=== PATIENT | female | born 1960 | race Caucasian/White ===

== ENCOUNTER 2017-12-13 08:15 | Emergency (ER) | payer MEDICAID ==
[~2017-12-13] VITALS: Ht 160 cm; Wt 99.8 kg
[2017-12-13 11:31] VITALS: BP 137/71
== END 2017-12-13 12:33 | disposition home or self-care (01) ==
LOC: ER 08:15
DX: N63.0 Unspecified lump in unspecified breast (principal); F17.210 Nicotine dependence, cigarettes, uncomplicated
CPT/HCPCS: 71250

== ENCOUNTER 2020-09-24 16:58 | Inpatient (IN) | payer MEDICAID ==
[~2020-09-24] VITALS: Ht 160 cm; Wt 86.5 kg
[2020-09-24 17:43] LABS: Basophils # (auto) 0.1 10 ^3/uL (0-0.2); Basophils % (auto) 0.7 % (0.0-2.0); Eosinophils # (auto) 0.2 10 ^3/uL (0-0.8); Eosinophils % (auto) 2.2 % (0.0-7.0); Hematocrit 45.7 % (36.0-46.0); Lymphocytes # (auto) 2.9 10 ^3/uL (0.4-5.4); Lymphocytes % (auto) 29.6 % (10.0-50.0); Mean Corpuscular Hemoglobin 32.2 pg (28.0-32.0); Mean Corpuscular Volume 92.2 fL (80.0-100.0); Monocytes # (auto) 0.8 10 ^3/uL (0-1.3); Neutrophils # (auto) 5.8 10 ^3/uL (1.6-8.6); Neutrophils % (auto) 59.5 % (37.0-80.0); Nucleated Red Blood Cells % 0.3 %; Platelet Count (auto) 214 10^3/uL (140-450); Red Blood Cells 4.95 10^6/uL (4.0-5.20); Red Cell Distribution Width 13.6 % (11.8-14.3); White Blood Cell 9.7 10^3/uL (4.4-10.8)
[2020-09-24 17:58] LABS: INR 0.97 (0.9-1.15); Partial Thromboplastin Time 26.6 sec (23.0-31.2)
[2020-09-24 17:59] LABS: Albumin 3.4 g/dL (3.4-5.0); Anion Gap 5 (5-15); BUN/Creatinine Ratio 28.8; Blood Urea Nitrogen 15 mg/dL (7-18); Calcium 8.6 mg/dL (8.5-10.1); Carbon Dioxide 27 mmol/L (21-32); Chloride 107 mmol/L (98-107); GFR African American 156 mL/min; GFR Non-African American 129 mL/min; Glucose 91 mg/dL (74-106); Potassium 4.1 mmol/L (3.5-5.1); Sodium 139 mmol/L (136-145)
[2020-09-24 18:03] LABS: Alanine Aminotransferase 62 U/L (13-56); Alkaline Phosphatase 73 U/L (45-117); Aspartate Aminotransferase 49 U/L (15-37); Bilirubin, Total 0.4 mg/dL (0.2-1.0); Total Protein 7.4 g/dL (6.4-8.2)
[2020-09-24] MEDS ORDERED: dilTIAZem 25 MG/5 ML VIAL IV ONE ×3 (18:11→18:45)
[2020-09-24] MEDS ORDERED: SODIUM CHLORIDE 0.9% 1,000 ML IV ONE (18:15)
[2020-09-24] MEDS ORDERED: METOPROLOL SUCCINATE XL 50 MG TAB PO ONE (19:45)
[2020-09-24] MEDS: ENOXAPARIN SOD 80 MG/0.8ML SYRINGE SC SCH (21:30)
[2020-09-24] MEDS ORDERED: NITROGLYCERIN 0.4 MG SL TAB SL PRN (21:45)
[2020-09-24] MEDS ORDERED: ACETAMINOPHEN 325 MG TAB PO PRN (21:45)
[2020-09-24] MEDS ORDERED: MORPHINE SULF INJ 2 MG/ML SYRINGE 1ML IV PRN (21:45)
[2020-09-24] MEDS ORDERED: TEMAZEPAM 15 MG CAP PO PRN (21:45)
[2020-09-24] MEDS ORDERED: ONDANSETRON HCL 4 MG/2 ML VIAL IV PRN (21:45)
[2020-09-24] MEDS ORDERED: FAMOTIDINE 20 MG TAB PO SCH (22:00)
[2020-09-24] MEDS: METOPROLOL TARTRATE 25 MG TAB PO SCH (22:45)
[2020-09-25] VITALS (8 sets, daily range): BP systolic 97–124; BP diastolic 58–73
[2020-09-25] MEDS ORDERED: CITA-73 PO (00:39)
[2020-09-25 06:34] LABS: Basophils # (auto) 0.1 10 ^3/uL (0-0.2); Basophils % (auto) 1.1 % (0.0-2.0); Eosinophils # (auto) 0.2 10 ^3/uL (0-0.8); Hematocrit 42.9 % (36.0-46.0); Hemoglobin 14.8 g/dL (12.2-16.2); Lymphocytes # (auto) 2.2 10 ^3/uL (0.4-5.4); Lymphocytes % (auto) 34.1 % (10.0-50.0); Mean Corpuscular Hemoglobin 31.9 pg (28.0-32.0); Mean Corpuscular Hgb Conc. 34.4 g/dL (32.0-36.0); Mean Corpuscular Volume 92.8 fL (80.0-100.0); Monocytes # (auto) 0.6 10 ^3/uL (0-1.3); Monocytes % (auto) 8.8 % (0.0-12.0); Neutrophils # (auto) 3.5 10 ^3/uL (1.6-8.6); Nucleated Red Blood Cells % 0.1 %; Platelet Count (auto) 180 10^3/uL (140-450); Red Blood Cells 4.62 10^6/uL (4.0-5.20); Red Cell Distribution Width 13.8 % (11.8-14.3); White Blood Cell 6.6 10^3/uL (4.4-10.8)
[2020-09-25 06:50] LABS: BUN/Creatinine Ratio 24.5; Calcium 8.4 mg/dL (8.5-10.1); Potassium 4.3 mmol/L (3.5-5.1)
[2020-09-25] MEDS: FAMOTIDINE 20 MG TAB PO SCH ×2 (09:44→21:27)
[2020-09-25] MEDS: ENOXAPARIN SOD 80 MG/0.8ML SYRINGE SC SCH (09:44)
[2020-09-25] MEDS: METOPROLOL TARTRATE 25 MG TAB PO SCH ×2 (09:45→21:26)
[2020-09-25] MEDS ORDERED: ASPirin 81 mg TAB PO SCH (10:00)
[2020-09-26 05:00] VITALS: BP 114/58
[2020-09-26 05:24] LABS: Basophils # (auto) 0.1 10 ^3/uL (0-0.2); Basophils % (auto) 0.8 % (0.0-2.0); Eosinophils # (auto) 0.2 10 ^3/uL (0-0.8); Eosinophils % (auto) 3.1 % (0.0-7.0); Hematocrit 43.3 % (36.0-46.0); Hemoglobin 15.3 g/dL (12.2-16.2); Lymphocytes # (auto) 2.1 10 ^3/uL (0.4-5.4); Lymphocytes % (auto) 32.6 % (10.0-50.0); Mean Corpuscular Hemoglobin 32.4 pg (28.0-32.0); Mean Corpuscular Hgb Conc. 35.3 g/dL (32.0-36.0); Monocytes # (auto) 0.5 10 ^3/uL (0-1.3); Monocytes % (auto) 8.1 % (0.0-12.0); Neutrophils # (auto) 3.6 10 ^3/uL (1.6-8.6); Neutrophils % (auto) 55.4 % (37.0-80.0); Nucleated Red Blood Cells % 0.1 %; Platelet Count (auto) 181 10^3/uL (140-450); Red Blood Cells 4.71 10^6/uL (4.0-5.20); Red Cell Distribution Width 13.7 % (11.8-14.3); White Blood Cell 6.5 10^3/uL (4.4-10.8)
[2020-09-26 05:43] LABS: BUN/Creatinine Ratio 27.5; Calcium 8.8 mg/dL (8.5-10.1); Potassium 4.3 mmol/L (3.5-5.1)
[2020-09-26 07:27] LABS: Urine Bacteria NONE SEEN /hpf (None Seen); Urine Blood Negative /uL (Negative); Urine WBC <1 /hpf (0 - 5)
[2020-09-26 08:00] VITALS: BP 129/89
[2020-09-26] MEDS ORDERED: APIX5TAB PO (09:46)
[2020-09-26] MEDS ORDERED: MET25T PO (09:46)
[2020-09-26] MEDS ORDERED: ASPirin 81 mg TAB PO SCH (10:00)
[2020-09-26] MEDS ORDERED: ENOXAPARIN SOD 40 MG/0.4 ML SYRINGE SC SCH (10:00)
[2020-09-26] MEDS ORDERED: CITALOPRAM HYDROBR 20 MG TAB PO SCH (10:00)
[2020-09-26] MEDS: FAMOTIDINE 20 MG TAB PO SCH (10:20)
[2020-09-26] MEDS: METOPROLOL TARTRATE 25 MG TAB PO SCH (10:21)
[2020-09-26 12:00] VITALS: BP 103/59
[2020-09-26 12:59] VITALS: BP 103/59
[2020-09-26] MEDS ORDERED: NICOTINE 14 MG/24HR TOPICAL PATCH TD SCH (13:00)
== END 2020-09-26 14:08 | disposition home or self-care (01) | DRG 201 ==
LOC: EDUNIT# 16:58 → ER 16:58 → EDBD 16:58 → TELE 21:42 → TELE-CENTR 23:08
PROVIDERS: ADMIT Nurse Practitioner; ATTEND Internal Medicine Pulmonary Disease
DX: I48.91 Unspecified atrial fibrillation (principal); E66.9 Obesity, unspecified; Z68.33 Body mass index [BMI] 33.0-33.9, adult; F17.210 Nicotine dependence, cigarettes, uncomplicated; F32.9 Major depressive disorder, single episode, unspecified; F41.9 Anxiety disorder, unspecified; Z82.49 Family history of ischemic heart disease and other diseases of the circulatory system; Z20.822 Contact with and (suspected) exposure to COVID-19
CPT/HCPCS: 36415; 71045; 80048; 80053; 81001; 83735; 83880; 84443; 84484; 85025; 85610; 85730; 87426; 93005; 93306; 96361; 96374; G0378

== ENCOUNTER 2020-10-20 09:10 | Emergency (ER) | payer MEDICAID ==
[~2020-10-20] VITALS: Ht 162.6 cm; Wt 83.9 kg
[~2020-10-20 09:10] MED LIST: APIX5TAB PO; CITA-73 PO; MET25T PO
[2020-10-20 10:04] LABS: Albumin 3.1 g/dL (3.4-5.0); Anion Gap 2 (5-15); Blood Urea Nitrogen 11 mg/dL (7-18); Calcium 8.3 mg/dL (8.5-10.1); Carbon Dioxide 29 mmol/L (21-32); Chloride 105 mmol/L (98-107); Glucose 92 mg/dL (74-106); Potassium 4.3 mmol/L (3.5-5.1); Sodium 136 mmol/L (136-145)
[2020-10-20 10:06] LABS: Basophils # (auto) 0.1 10 ^3/uL (0-0.2); Basophils % (auto) 0.7 % (0.0-2.0); Eosinophils # (auto) 0.1 10 ^3/uL (0-0.8); Eosinophils % (auto) 0.9 % (0.0-7.0); Hematocrit 39.2 % (36.0-46.0); Lymphocytes # (auto) 2.4 10 ^3/uL (0.4-5.4); Lymphocytes % (auto) 24.3 % (10.0-50.0); Mean Corpuscular Hemoglobin 32.7 pg (28.0-32.0); Mean Corpuscular Hgb Conc. 35.6 g/dL (32.0-36.0); Mean Corpuscular Volume 91.8 fL (80.0-100.0); Monocytes # (auto) 0.8 10 ^3/uL (0-1.3); Monocytes % (auto) 7.9 % (0.0-12.0); Neutrophils # (auto) 6.5 10 ^3/uL (1.6-8.6); Neutrophils % (auto) 66.2 % (37.0-80.0); Red Blood Cells 4.27 10^6/uL (4.0-5.20); Red Cell Distribution Width 13.4 % (11.8-14.3); White Blood Cell 9.9 10^3/uL (4.4-10.8)
[2020-10-20 10:12] LABS: Alanine Aminotransferase 178 U/L (13-56); Alkaline Phosphatase 72 U/L (45-117); Aspartate Aminotransferase 139 U/L (15-37); BUN/Creatinine Ratio 19.6; Bilirubin, Total 0.6 mg/dL (0.2-1.0); GFR African American 143 mL/min; GFR Non-African American 118 mL/min; Total Protein 6.9 g/dL (6.4-8.2)
[2020-10-20 12:00] VITALS: BP 98/65
== END 2020-10-20 12:41 | disposition home or self-care (01) ==
LOC: ER 09:10
DX: J18.9 Pneumonia, unspecified organism (principal); R79.0 Abnormal level of blood mineral; R79.82 Elevated C-reactive protein (CRP); I48.91 Unspecified atrial fibrillation; F17.210 Nicotine dependence, cigarettes, uncomplicated; Z79.899 Other long term (current) drug therapy
CPT/HCPCS: 36415; 71046; 80053; 82728; 84484; 85025; 85049; 86141; 87426; 93005

== ENCOUNTER 2020-12-29 13:22 | Emergency (ER) | payer MEDICAID ==
[~2020-12-29] VITALS: Ht 160 cm; Wt 83.9 kg
[2020-12-29 13:51] LABS: Basophils # (auto) 0.1 10 ^3/uL (0-0.2); Basophils % (auto) 0.8 % (0.0-2.0); Eosinophils # (auto) 0.2 10 ^3/uL (0-0.8); Eosinophils % (auto) 2.1 % (0.0-7.0); Hemoglobin 16.2 g/dL (12.2-16.2); Lymphocytes # (auto) 2.9 10 ^3/uL (0.4-5.4); Lymphocytes % (auto) 33.1 % (10.0-50.0); Mean Corpuscular Hemoglobin 31.6 pg (28.0-32.0); Mean Corpuscular Hgb Conc. 33.8 g/dL (32.0-36.0); Mean Corpuscular Volume 93.4 fL (80.0-100.0); Monocytes # (auto) 0.6 10 ^3/uL (0-1.3); Red Blood Cells 5.14 10^6/uL (4.0-5.20); Red Cell Distribution Width 14.3 % (11.8-14.3); White Blood Cell 8.9 10^3/uL (4.4-10.8)
[2020-12-29 14:04] LABS: Anion Gap 4 (5-15); BUN/Creatinine Ratio 23.4; Blood Urea Nitrogen 15 mg/dL (7-18); Calcium 8.6 mg/dL (8.5-10.1); Carbon Dioxide 27 mmol/L (21-32); Chloride 107 mmol/L (98-107); GFR African American 123 mL/min; GFR Non-African American 101 mL/min; Glucose 87 mg/dL (74-106); Potassium 4.7 mmol/L (3.5-5.1); Sodium 138 mmol/L (136-145)
[2020-12-29 14:09] LABS: Alanine Aminotransferase 75 U/L (13-56); Alkaline Phosphatase 67 U/L (45-117); Aspartate Aminotransferase 52 U/L (15-37); Bilirubin, Total 0.2 mg/dL (0.2-1.0); Total Protein 7.5 g/dL (6.4-8.2)
[2020-12-29 15:56] LABS: Urine Bacteria FEW /hpf (None Seen); Urine Blood Negative /uL (Negative); Urine WBC 1 /hpf (0 - 5)
[2020-12-29 16:38] VITALS: BP 112/71
== END 2020-12-29 16:41 | disposition home or self-care (01) ==
LOC: ER 13:24
DX: R07.89 Other chest pain (principal); F41.9 Anxiety disorder, unspecified; E86.0 Dehydration; I48.91 Unspecified atrial fibrillation; F32.9 Major depressive disorder, single episode, unspecified; F17.210 Nicotine dependence, cigarettes, uncomplicated; Z79.899 Other long term (current) drug therapy
CPT/HCPCS: 36415; 71045; 80053; 81001; 84484; 85025; 93005

== ENCOUNTER 2021-11-22 08:54 | Emergency (ER) | payer MEDICAID ==
[~2021-11-22] VITALS: Ht 160 cm; Wt 90.5 kg
[2021-11-22 10:08] LABS: Albumin 3.1 g/dL (3.4-5.0); Calcium 8.7 mg/dL (8.5-10.1); Potassium 4.5 mmol/L (3.5-5.1)
[2021-11-22 10:11] LABS: BUN/Creatinine Ratio 23.9; Bilirubin, Total 0.3 mg/dL (0.2-1.0)
[2021-11-22 10:24] LABS: Basophils # (auto) 0.1 10 ^3/uL (0-0.2); Basophils % (auto) 0.9 % (0.0-2.0); Eosinophils # (auto) 0.2 10 ^3/uL (0-0.8); Eosinophils % (auto) 2.1 % (0.0-7.0); Hematocrit 44.5 % (36.0-46.0); Hemoglobin 14.7 g/dL (12.2-16.2); Lymphocytes # (auto) 2.2 10 ^3/uL (0.4-5.4); Lymphocytes % (auto) 28.6 % (10.0-50.0); Mean Corpuscular Hemoglobin 31.4 pg (28.0-32.0); Mean Corpuscular Volume 95.3 fL (80.0-100.0); Monocytes # (auto) 0.5 10 ^3/uL (0-1.3); Monocytes % (auto) 7.2 % (0.0-12.0); Neutrophils # (auto) 4.7 10 ^3/uL (1.6-8.6); Neutrophils % (auto) 61.2 % (37.0-80.0); Red Blood Cells 4.67 10^6/uL (4.0-5.20); Red Cell Distribution Width 13.6 % (11.8-14.3); White Blood Cell 7.7 10^3/uL (4.4-10.8)
[2021-11-22 15:05] VITALS: BP 156/69
== END 2021-11-22 15:06 | disposition home or self-care (01) ==
LOC: ER 08:54
DX: R07.89 Other chest pain (principal); E46 Unspecified protein-calorie malnutrition; I48.91 Unspecified atrial fibrillation; F17.210 Nicotine dependence, cigarettes, uncomplicated; Z68.35 Body mass index [BMI] 35.0-35.9, adult; Z79.899 Other long term (current) drug therapy
CPT/HCPCS: 36415; 71045; 80053; 84484; 85025; 93005

== ENCOUNTER 2023-04-10 09:42 | Emergency (ER) | payer MEDICAID ==
[~2023-04-10] VITALS: Ht 160 cm; Wt 94.3 kg
[2023-04-10 10:44] VITALS: BP 122/69; PULSE 67; RESP 18; TEMP 97.9; O2SAT 95
[2023-04-10] MEDS ORDERED: ACETAMINOPHEN 500 MG TAB PO ONE (11:15)
[2023-04-10] MEDS ORDERED: KETOROLAC TROMETH 60MG/2ML VIAL IM ONE (11:15)
[2023-04-10] MEDS ORDERED: methylPREDNISolone SOD SUCC 125 MG/2 ML VL IM ONE (11:15)
[2023-04-10] MEDS ORDERED: GABA-1308 PO (11:48)
== END 2023-04-10 11:48 | disposition home or self-care (01) ==
LOC: ER 09:42
DX: M79.661 Pain in right lower leg (principal); M54.31 Sciatica, right side; I48.91 Unspecified atrial fibrillation; F17.210 Nicotine dependence, cigarettes, uncomplicated; Z79.899 Other long term (current) drug therapy
CPT/HCPCS: 96372; 99284; J1885; J2930

== ENCOUNTER 2023-09-13 03:21 | Emergency (ER) | payer MEDICAID ==
[~2023-09-13] VITALS: Ht 160 cm; Wt 91.4 kg
[~2023-09-13 03:21] MED LIST changes: +GABA-1308 PO
[2023-09-13] MEDS: HYDROcodone-ACET 7.5/325MG TAB PO ONE (07:29)
[2023-09-13] MEDS: methylPREDNISolone SOD SUCC 125 MG/2 ML VL IM ONE (07:30)
[2023-09-13 07:40] VITALS: BP 125/58; PULSE 55; RESP 18; TEMP 98; O2SAT 96
[2023-09-13] MEDS ORDERED: CYCL-837 PO (07:57)
[2023-09-13] MEDS ORDERED: MELO7.5T7 PO (07:57)
== END 2023-09-13 08:02 | disposition home or self-care (01) ==
LOC: ER 03:21
DX: M54.31 Sciatica, right side (principal); M79.604 Pain in right leg; F41.9 Anxiety disorder, unspecified; F32.9 Major depressive disorder, single episode, unspecified; I48.91 Unspecified atrial fibrillation; F17.210 Nicotine dependence, cigarettes, uncomplicated; Z79.899 Other long term (current) drug therapy
CPT/HCPCS: 72100; 96372; 99283; J2919

== ENCOUNTER 2023-11-27 09:27 | Inpatient (IN) | payer MEDICAID ==
[~2023-11-27] VITALS: Ht 160 cm; Wt 93.9 kg
[~2023-11-27 09:27] MED LIST changes: +COROSUS EACH EAR; +CYCL-837 PO; +MELO7.5T7 PO; +METO25TA5 PO
[2023-11-27 10:15] VITALS: PULSE 152; RESP 18; O2SAT 95
[2023-11-27] MEDS: ADENOSINE 6 MG/2 ML INJ IV ONE (10:15)
[2023-11-27] MEDS: dilTIAZem 25 MG/5 ML VIAL IV ONE (10:22)
[2023-11-27] MEDS: ONDANSETRON HCL 4 MG/2 ML VIAL IV ONE (10:23)
[2023-11-27] MEDS: MORPHINE SULFATE 4 MG/ML SYR/VIAL IV ONE (10:37)
[2023-11-27] MEDS: dilTIAZem 125mg/125ml BAG KIT 125 ML IV ONE (10:38)
[2023-11-27 10:41] LABS: Basophils # (auto) 0.1 10 ^3/uL (0-0.2); Basophils % (auto) 0.7 % (0.0-2.0); Eosinophils # (auto) 0.1 10 ^3/uL (0-0.8); Eosinophils % (auto) 1.7 % (0.0-7.0); Hematocrit 35.8 % (36.0-46.0); Hemoglobin 12.1 g/dL (12.2-16.2); Lymphocytes # (auto) 2.3 10 ^3/uL (0.4-5.4); Mean Corpuscular Hemoglobin 31.8 pg (28.0-32.0); Mean Corpuscular Hgb Conc. 33.9 g/dL (32.0-36.0); Mean Corpuscular Volume 93.8 fL (80.0-100.0); Monocytes # (auto) 0.6 10 ^3/uL (0-1.3); Monocytes % (auto) 7.3 % (0.0-12.0); Neutrophils # (auto) 5.1 10 ^3/uL (1.6-8.6); Neutrophils % (auto) 62.3 % (37.0-80.0); Nucleated Red Blood Cells % 0.1 %; Red Blood Cells 3.82 10^6/uL (4.0-5.20); Red Cell Distribution Width 14.8 % (11.8-14.3); White Blood Cell 8.2 10^3/uL (4.4-10.8)
[2023-11-27 11:09] LABS: Chloride 114 mmol/L (98-107); Potassium 3.5 mmol/L (3.5-5.1); Sodium 142 mmol/L (136-145)
[2023-11-27 11:16] LABS: Anion Gap 5 (5-15); Blood Urea Nitrogen 13 mg/dL (9-23); Calcium 7.3 mg/dL (8.7-10.4); Carbon Dioxide 23 mmol/L (20-30); Glucose 95 mg/dL (74-106)
[2023-11-27] MEDS: SODIUM CHLORIDE 0.9% 500 ML IV ONE (13:04)
[2023-11-27] MEDS: NOREPINEPHRINE 8 MG/250ML KIT 250 ML IV SCH (13:17)
[2023-11-27] MEDS ORDERED: MORPHINE SULFATE INJ 2 MG/ml SYRG IV PRN (14:30)
[2023-11-27] MEDS ORDERED: NITROGLYCERIN 0.4 MG SL TAB SL PRN (14:30)
[2023-11-27 15:20] LABS: LDL Cholesterol 73 mg/dL (< 100); Triglycerides 128 mg/dL (< 150)
[2023-11-27 15:22] LABS: Cholesterol 136 mg/dL (< 200); HDL Cholesterol 44 mg/dL (40-59)
[2023-11-27] MEDS: SODIUM CHLORIDE 0.9% 1,000 ML IV SCH (16:51)
[2023-11-27] MEDS: GABAPENTIN 100 MG CAP PO ONE (17:03)
[2023-11-27] MEDS: HYDROcodone-ACET 5/325MG TAB PO PRN (20:25)
[2023-11-27] MEDS: GABAPENTIN 100 MG CAP PO SCH (21:45)
[2023-11-28 04:30] LABS: Urine Bacteria None Seen /hpf (None Seen)
[2023-11-28 04:37] LABS: Urine Blood Negative /uL (Negative); Urine Clarity Clear (Clear); Urine Color Light-Yellow (Yellow); Urine Protein, UAD Negative (Negative); Urine Specific Gravity 1.022 (1.001-1.035); Urine Urobilinogen Normal (Negative); Urine WBC <1 /hpf (0 - 5); Urine pH 5.5 (5.0-9.0)
[2023-11-28 07:17] VITALS: PULSE 72; RESP 14; O2SAT 96
[2023-11-28 07:33] LABS: Basophils # (auto) 0.1 10 ^3/uL (0-0.2); Basophils % (auto) 0.9 % (0.0-2.0); Eosinophils # (auto) 0.2 10 ^3/uL (0-0.8); Eosinophils % (auto) 2.2 % (0.0-7.0); Hematocrit 41.9 % (36.0-46.0); Hemoglobin 14.1 g/dL (12.2-16.2); Lymphocytes # (auto) 2.4 10 ^3/uL (0.4-5.4); Lymphocytes % (auto) 27.8 % (10.0-50.0); Mean Corpuscular Hemoglobin 31.8 pg (28.0-32.0); Mean Corpuscular Hgb Conc. 33.6 g/dL (32.0-36.0); Mean Corpuscular Volume 94.5 fL (80.0-100.0); Monocytes # (auto) 0.8 10 ^3/uL (0-1.3); Monocytes % (auto) 8.7 % (0.0-12.0); Neutrophils # (auto) 5.3 10 ^3/uL (1.6-8.6); Neutrophils % (auto) 60.4 % (37.0-80.0); Red Blood Cells 4.43 10^6/uL (4.0-5.20); White Blood Cell 8.7 10^3/uL (4.4-10.8)
[2023-11-28 07:35] LABS: Alanine Aminotransferase 57 U/L (7-40); Albumin 3.7 g/dL (3.2-4.8); Alkaline Phosphatase 70 U/L (46-116); Anion Gap 2 (5-15); Aspartate Aminotransferase 53 U/L (13-40); BUN/Creatinine Ratio 24.6 (10.0-20.0); Blood Urea Nitrogen 14 mg/dL (9-23); Calcium 8.8 mg/dL (8.7-10.4); Carbon Dioxide 28 mmol/L (20-30); Chloride 111 mmol/L (98-107); Glucose 107 mg/dL (74-106); Potassium 4.8 mmol/L (3.5-5.1); Sodium 141 mmol/L (136-145)
[2023-11-28 07:36] LABS: Bilirubin, Total 0.6 mg/dL (0.2-1.0); Total Protein 6.4 g/dL (5.7-8.2)
[2023-11-28] MEDS: DIGOXIN (250MCG/ML) 2 ML AMPULE IV ONE (12:50)
[2023-11-28] MEDS: METOPROLOL TARTRATE 25 MG TAB PO ONE (16:31)
[2023-11-28] MEDS: NITROGLYCERIN 2% OINT 1GM PKG TD ONE (19:03)
[2023-11-28 19:38] VITALS: PULSE 126; RESP 18; O2SAT 92
[2023-11-28] MEDS: dilTIAZem 125mg/125ml BAG KIT 125 ML IV SCH (21:41)
[2023-11-28] MEDS: METOPROLOL TARTRATE 25 MG TAB PO SCH (22:00)
[2023-11-28] MEDS: APIXABAN 5 MG TAB PO SCH (22:59)
[2023-11-28] MEDS: AMIODARONE BOLUS KIT 100 ML IV ONE (23:02)
[2023-11-28] MEDS: AMIODARONE 450mg/250ml AE 250 ML IV SCH (23:50)
[2023-11-29] VITALS (51 sets, daily range): BP systolic 97–126; BP diastolic 48–84; PULSE 79–129; RESP 12–24; TEMP 98–98.3; O2SAT 89–98
[2023-11-29 04:42] LABS: Alanine Aminotransferase 64 U/L (7-40); Albumin 3.5 g/dL (3.2-4.8); Alkaline Phosphatase 67 U/L (46-116); Anion Gap 6 (5-15); Aspartate Aminotransferase 63 U/L (13-40); BUN/Creatinine Ratio 20.4 (10.0-20.0); Bilirubin, Total 0.4 mg/dL (0.2-1.0); Blood Urea Nitrogen 10 mg/dL (9-23); Calcium 8.7 mg/dL (8.7-10.4); Carbon Dioxide 28 mmol/L (20-30); Chloride 107 mmol/L (98-107); Glucose 109 mg/dL (74-106); Magnesium 1.8 mg/dL (1.6-2.6); Sodium 141 mmol/L (136-145); Total Protein 6.3 g/dL (5.7-8.2)
[2023-11-29] MEDS: AMIODARONE 450mg/250ml AE 250 ML IV SCH (05:17)
[2023-11-29] MEDS: NICOTINE 21MG/24 HR TOPICAL PATCH TD ONE (11:00)
[2023-11-29 11:11] LABS: INR 1.04 (0.9-1.15)
[2023-11-29] MEDS: NITROGLYCERIN 2% OINT 1GM PKG TD SCH (11:20)
[2023-11-29] MEDS: FUROSEMIDE 20 MG/2 ML VIAL IV ONE (11:22)
[2023-11-29] MEDS: LIDOCAINE 1% (LOCAL ANESTH.) PF 5ml SDV ID ONE (14:08)
[2023-11-29] MEDS: MAGNESIUM SULFATE 1GM/100ML 100 ML IV SCH (14:19)
[2023-11-29] MEDS: MAGNESIUM SULFATE 1GM/100ML 200 ML IV ONE (14:22)
[2023-11-29] MEDS: SODIUM CHLOR 0.9% PF (SALINE LOCK) 10ML VIAL/SYR IV SCH (21:11)
[2023-11-30] VITALS (23 sets, daily range): BP systolic 96–117; BP diastolic 57–77; PULSE 91–145; RESP 12–26; TEMP 98.2–99.4; O2SAT 91–97
[2023-11-30 03:52] LABS: Basophils # (auto) 0.1 10 ^3/uL (0-0.2); Basophils % (auto) 0.6 % (0.0-2.0); Eosinophils # (auto) 0.1 10 ^3/uL (0-0.8); Eosinophils % (auto) 1.4 % (0.0-7.0); Hemoglobin 14.1 g/dL (12.2-16.2); Mean Corpuscular Hemoglobin 31.8 pg (28.0-32.0); Mean Corpuscular Hgb Conc. 33.6 g/dL (32.0-36.0); Mean Corpuscular Volume 94.7 fL (80.0-100.0); Monocytes # (auto) 0.9 10 ^3/uL (0-1.3); Monocytes % (auto) 8.3 % (0.0-12.0); Neutrophils # (auto) 7.1 10 ^3/uL (1.6-8.6); Neutrophils % (auto) 69.7 % (37.0-80.0); Nucleated Red Blood Cells % 0.1 %; Red Blood Cells 4.43 10^6/uL (4.0-5.20); Red Cell Distribution Width 14.4 % (11.8-14.3); White Blood Cell 10.2 10^3/uL (4.4-10.8)
[2023-11-30 04:09] LABS: Alanine Aminotransferase 79 U/L (7-40); Albumin 3.5 g/dL (3.2-4.8); Alkaline Phosphatase 68 U/L (46-116); Anion Gap 3 (5-15); Aspartate Aminotransferase 80 U/L (13-40); BUN/Creatinine Ratio 19.2 (10.0-20.0); Bilirubin, Total 0.6 mg/dL (0.2-1.0); Blood Urea Nitrogen 10 mg/dL (9-23); Calcium 9.1 mg/dL (8.7-10.4); Carbon Dioxide 31 mmol/L (20-30); Chloride 106 mmol/L (98-107); Glucose 114 mg/dL (74-106); Potassium 4.2 mmol/L (3.5-5.1); Sodium 140 mmol/L (136-145)
[2023-11-30 04:10] LABS: Total Protein 6.5 g/dL (5.7-8.2)
[2023-11-30] MEDS: NICOTINE 21MG/24 HR TOPICAL PATCH TD SCH (09:45)
[2023-11-30] MEDS: AMIODARONE HCL 200 MG TAB PO ONE (13:08)
[2023-11-30] MEDS: AMIODARONE HCL 200 MG TAB PO SCH (20:43)
[2023-12-01] VITALS (7 sets, daily range): BP systolic 100–116; BP diastolic 59–78; PULSE 79–148; RESP 17–20; TEMP 97.7–98.8; O2SAT 92–96
[2023-12-01 10:06] LABS: Alanine Aminotransferase 72 U/L (7-40); Alkaline Phosphatase 76 U/L (46-116); Anion Gap 5 (5-15); Aspartate Aminotransferase 56 U/L (13-40); Blood Urea Nitrogen 11 mg/dL (9-23); Calcium 9.4 mg/dL (8.7-10.4); Carbon Dioxide 30 mmol/L (20-30); Chloride 105 mmol/L (98-107); Glucose 157 mg/dL (74-106); Potassium 4.1 mmol/L (3.5-5.1); Sodium 140 mmol/L (136-145)
[2023-12-01 10:07] LABS: Albumin 3.8 g/dL (3.2-4.8); Bilirubin, Total 0.5 mg/dL (0.2-1.0); Total Protein 6.7 g/dL (5.7-8.2)
[2023-12-01] MEDS ORDERED: AMIO200T33 PO (10:51)
[2023-12-01] MEDS ORDERED: HYDR-4902 PO (10:52)
[2023-12-01] MEDS: METOPROLOL TARTRATE 25 MG TAB PO ONE (11:24)
[2023-12-01] MEDS ORDERED: METOPROLOL TARTRATE 25 MG TAB PO SCH (22:00)
== END 2023-12-01 18:25 | disposition home or self-care (01) | DRG 201 ==
LOC: ER 09:27 → OVERFLOW 14:51 → ICU WEST 11-29 00:06 → TELE-WESTW 11-30 17:31
PROVIDERS: ADMIT Internal Medicine Geriatric Medicine; ATTEND Internal Medicine Geriatric Medicine
PROC: 02HV33Z Insertion of Infusion Device into Superior Vena Cava, Percutaneous Approach (ICD-10-PCS; principal; 2023-11-29)
PROC: B548ZZA Ultrasonography of Superior Vena Cava, Guidance (ICD-10-PCS; 2023-11-29)
DX: I47.10 Supraventricular tachycardia, unspecified (principal); I95.9 Hypotension, unspecified; I48.92 Unspecified atrial flutter; I50.40 Unspecified combined systolic (congestive) and diastolic (congestive) heart failure; I48.20 Chronic atrial fibrillation, unspecified; F17.210 Nicotine dependence, cigarettes, uncomplicated; F41.9 Anxiety disorder, unspecified; N18.9 Chronic kidney disease, unspecified; F32.A Depression, unspecified; E66.9 Obesity, unspecified; M54.41 Lumbago with sciatica, right side; Z79.01 Long term (current) use of anticoagulants; Z82.49 Family history of ischemic heart disease and other diseases of the circulatory system; Z83.3 Family history of diabetes mellitus; Z68.36 Body mass index [BMI] 36.0-36.9, adult
CPT/HCPCS: 36415; 36569; 71045; 80048; 80053; 80061; 81001; 83036; 83735; 83880; 84443; 84484; 85025; 85610; 85730; 87040; 87081; 87086; 93005; 93306; 97163; 99291; G0378; J0153; J2405

== ENCOUNTER 2023-12-24 08:13 | Inpatient (IN) | payer MEDICAID, SELFPAY ==
[~2023-12-24] VITALS: Ht 162.6 cm; Wt 98.0 kg
[~2023-12-24 08:13] MED LIST changes: +AMIO200T33 PO; -COROSUS EACH EAR; +HYDR-4902 PO; -MET25T PO
[2023-12-24 08:46] LABS: Urine Bacteria None Seen /hpf (None Seen)
[2023-12-24 08:51] LABS: Basophils # (auto) 0.1 10 ^3/uL (0-0.2); Basophils % (auto) 0.9 % (0.0-2.0); Eosinophils # (auto) 0.1 10 ^3/uL (0-0.8); Eosinophils % (auto) 0.7 % (0.0-7.0); Hemoglobin 13.8 g/dL (12.2-16.2); Lymphocytes # (auto) 2.1 10 ^3/uL (0.4-5.4); Lymphocytes % (auto) 24.8 % (10.0-50.0); Mean Corpuscular Hemoglobin 31.5 pg (28.0-32.0); Mean Corpuscular Hgb Conc. 33.7 g/dL (32.0-36.0); Mean Corpuscular Volume 93.6 fL (80.0-100.0); Monocytes # (auto) 0.7 10 ^3/uL (0-1.3); Monocytes % (auto) 8.7 % (0.0-12.0); Neutrophils # (auto) 5.4 10 ^3/uL (1.6-8.6); Neutrophils % (auto) 64.9 % (37.0-80.0); Platelet Count (auto) 162 10^3/uL (140-450); Red Blood Cells 4.38 10^6/uL (4.0-5.20); Red Cell Distribution Width 14.7 % (11.8-14.3); White Blood Cell 8.4 10^3/uL (4.4-10.8)
[2023-12-24 08:52] LABS: Urine Blood Negative /uL (Negative); Urine Clarity Clear (Clear); Urine Color Yellow (Yellow); Urine Protein, UAD Negative (Negative); Urine Specific Gravity 1.017 (1.001-1.035); Urine Urobilinogen Normal (Negative); Urine WBC 1 /hpf (0 - 5); Urine pH 5.5 (5.0-9.0)
[2023-12-24 08:55] VITALS: PULSE 48; RESP 15; O2SAT 95
[2023-12-24 09:03] LABS: Alanine Aminotransferase 220 U/L (7-40); Albumin 3.8 g/dL (3.2-4.8); Alkaline Phosphatase 82 U/L (46-116); Anion Gap 1 (5-15); Aspartate Aminotransferase 116 U/L (13-40); BUN/Creatinine Ratio 18.2 (10.0-20.0); Bilirubin, Total 0.7 mg/dL (0.2-1.0); Blood Urea Nitrogen 12 mg/dL (9-23); Calcium 9.3 mg/dL (8.7-10.4); Carbon Dioxide 29 mmol/L (20-30); Chloride 107 mmol/L (98-107); Glucose 90 mg/dL (74-106); Potassium 4.4 mmol/L (3.5-5.1); Sodium 137 mmol/L (136-145); Total Protein 6.9 g/dL (5.7-8.2)
[2023-12-24] MEDS: methylPREDNISolone SOD SUCC 125 MG/2 ML VL IV ONE (09:18)
[2023-12-24] MEDS: ALBUTEROL SULF 2.5 MG/0.5ML(0.5%) NEB SOLN NEB ONE (09:27)
[2023-12-24] MEDS: IPRATROPIUM BROM 0.5 MG/2.5ML INH SOL NEB ONE (09:27)
[2023-12-24] MEDS: AMIODARONE BOLUS KIT 100 ML IV ONE (10:22)
[2023-12-24] MEDS: AMIODARONE 450mg/250ml AE 250 ML IV SCH ×2 (10:28→16:43)
[2023-12-24] MEDS ORDERED: NITROGLYCERIN 0.4 MG SL TAB SL PRN (12:45)
[2023-12-24 13:24] LABS: INR 1.12 (0.9-1.15); Prothrombin Time 11.8 sec (9.3-11.8)
[2023-12-24] MEDS: GABAPENTIN 100 MG CAP PO SCH (14:09)
[2023-12-24] MEDS: LORazepam 2MG/ML-1ML VIAL IV ONE (14:54)
[2023-12-24 17:44] VITALS: BP 113/66; PULSE 100; RESP 18; TEMP 97.4; O2SAT 95
[2023-12-24 20:00] VITALS: PULSE 52; PULSE 69; RESP 19; O2SAT 95
[2023-12-24 21:00] VITALS: BP 103/54; PULSE 52; RESP 19; TEMP 97.8; O2SAT 95
[2023-12-24] MEDS: APIXABAN 5 MG TAB PO SCH (21:27)
[2023-12-25] VITALS (7 sets, daily range): BP systolic 99–140; BP diastolic 52–74; PULSE 53–107; RESP 17–18; TEMP 97.8–98.7; O2SAT 91–96
[2023-12-25 06:03] LABS: Basophils # (auto) 0 10 ^3/uL (0-0.2); Eosinophils # (auto) 0 10 ^3/uL (0-0.8); Hematocrit 41.6 % (36.0-46.0); Hemoglobin 14.1 g/dL (12.2-16.2); Lymphocytes # (auto) 1.5 10 ^3/uL (0.4-5.4); Lymphocytes % (auto) 9.1 % (10.0-50.0); Mean Corpuscular Hemoglobin 32.1 pg (28.0-32.0); Mean Corpuscular Hgb Conc. 33.8 g/dL (32.0-36.0); Monocytes # (auto) 1.1 10 ^3/uL (0-1.3); Monocytes % (auto) 6.5 % (0.0-12.0); Neutrophils # (auto) 13.8 10 ^3/uL (1.6-8.6); Neutrophils % (auto) 84.4 % (37.0-80.0); Platelet Count (auto) 152 10^3/uL (140-450); Red Blood Cells 4.39 10^6/uL (4.0-5.20); White Blood Cell 16.4 10^3/uL (4.4-10.8)
[2023-12-25 06:29] LABS: Alanine Aminotransferase 189 U/L (7-40); Albumin 3.8 g/dL (3.2-4.8); Alkaline Phosphatase 83 U/L (46-116); Anion Gap 3 (5-15); Aspartate Aminotransferase 77 U/L (13-40); BUN/Creatinine Ratio 21.2 (10.0-20.0); Blood Urea Nitrogen 14 mg/dL (9-23); Calcium 9.4 mg/dL (8.7-10.4); Carbon Dioxide 30 mmol/L (20-30); Chloride 104 mmol/L (98-107); Glucose 114 mg/dL (74-106); Potassium 4.5 mmol/L (3.5-5.1); Sodium 137 mmol/L (136-145)
[2023-12-25 06:30] LABS: Bilirubin, Total 0.9 mg/dL (0.2-1.0); Total Protein 6.8 g/dL (5.7-8.2)
[2023-12-25] MEDS: NICOTINE 21MG/24 HR TOPICAL PATCH TD SCH (08:43)
[2023-12-25] MEDS: CITALOPRAM HYDROBR 20 MG TAB PO SCH (08:43)
[2023-12-25] MEDS: IOHEXOL 350 MG/ML 100ML IJ ONE (09:23)
[2023-12-25] MEDS: NITROGLYCERIN 2% OINT 1GM PKG TD SCH (12:27)
[2023-12-25] MEDS: MORPHINE SULFATE INJ 2 MG/ml SYRG IV PRN (20:03)
[2023-12-26] VITALS (9 sets, daily range): BP systolic 117–134; BP diastolic 52–85; PULSE 59–119; RESP 17–20; TEMP 97.7–98.3; O2SAT 93–98
[2023-12-26] MEDS: LORazepam 0.5 MG TAB PO PRN (20:28)
[2023-12-27] VITALS (8 sets, daily range): BP systolic 112–128; BP diastolic 53–87; PULSE 50–119; RESP 17–19; TEMP 98.1–98.4; O2SAT 93–97
[2023-12-27 14:51] LABS: Basophils # (auto) 0 10 ^3/uL (0-0.2); Basophils % (auto) 0.6 % (0.0-2.0); Eosinophils # (auto) 0.1 10 ^3/uL (0-0.8); Eosinophils % (auto) 1.5 % (0.0-7.0); Hematocrit 42.1 % (36.0-46.0); Hemoglobin 14.4 g/dL (12.2-16.2); Lymphocytes # (auto) 1.4 10 ^3/uL (0.4-5.4); Lymphocytes % (auto) 17.2 % (10.0-50.0); Mean Corpuscular Hemoglobin 32.2 pg (28.0-32.0); Mean Corpuscular Hgb Conc. 34.3 g/dL (32.0-36.0); Mean Corpuscular Volume 93.9 fL (80.0-100.0); Monocytes # (auto) 0.8 10 ^3/uL (0-1.3); Monocytes % (auto) 10.1 % (0.0-12.0); Neutrophils % (auto) 70.6 % (37.0-80.0); Platelet Count (auto) 163 10^3/uL (140-450); Red Blood Cells 4.48 10^6/uL (4.0-5.20); Red Cell Distribution Width 14.6 % (11.8-14.3); White Blood Cell 8.4 10^3/uL (4.4-10.8)
[2023-12-27 15:18] LABS: Chloride 104 mmol/L (98-107); Potassium 4.2 mmol/L (3.5-5.1); Sodium 140 mmol/L (136-145)
[2023-12-27 15:19] LABS: Anion Gap 8 (5-15); Carbon Dioxide 28 mmol/L (20-30)
[2023-12-27 15:24] LABS: BUN/Creatinine Ratio 16.7 (10.0-20.0); Blood Urea Nitrogen 12 mg/dL (9-23); Glucose 111 mg/dL (74-106)
[2023-12-27] MEDS: ONDANSETRON HCL 4 MG/2 ML VIAL IV PRN (16:10)
[2023-12-28] VITALS (7 sets, daily range): BP systolic 100–125; BP diastolic 60–89; PULSE 58–118; RESP 18–20; TEMP 97.3–98.4; O2SAT 92–98
[2023-12-28] MEDS: DOCUSATE SOD 100 MG CAP PO PRN (09:36)
[2023-12-28] MEDS: AMIODARONE HCL 200 MG TAB PO SCH (13:26)
[2023-12-28] MEDS: METOPROLOL SUCCINATE XL 50 MG TAB PO SCH (13:29)
[2023-12-29] VITALS (7 sets, daily range): BP systolic 94–109; BP diastolic 44–60; PULSE 53–100; RESP 16–20; TEMP 97.8–98.5; O2SAT 92–95
== END 2023-12-29 16:30 | disposition home or self-care (01) | DRG 201 ==
LOC: ER 08:13 → TELE 13:00 → TELE-WESTW 17:27
PROVIDERS: ADMIT Nurse Practitioner Family; ATTEND Internal Medicine
DX: I48.20 Chronic atrial fibrillation, unspecified (principal); I11.0 Hypertensive heart disease with heart failure; I50.32 Chronic diastolic (congestive) heart failure; E66.9 Obesity, unspecified; Z79.01 Long term (current) use of anticoagulants; F17.210 Nicotine dependence, cigarettes, uncomplicated; F32.A Depression, unspecified; R74.01 Elevation of levels of liver transaminase levels; F41.9 Anxiety disorder, unspecified; Z68.37 Body mass index [BMI] 37.0-37.9, adult; Z82.49 Family history of ischemic heart disease and other diseases of the circulatory system; Z83.3 Family history of diabetes mellitus; Z79.899 Other long term (current) drug therapy
CPT/HCPCS: 36415; 71045; 71275; 80048; 80053; 81001; 84484; 85025; 85379; 85610; 93005; 94640; 96365; 96375; 99291; G0378; J2405

== ENCOUNTER 2024-04-15 12:08 | Inpatient (IN) | payer MEDICAID, SELFPAY ==
[~2024-04-15] VITALS: Ht 162.6 cm; Wt 89.8 kg
--- NOTE | 2024-04-15 12:24 | ECG ---
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
[2024-04-15] MEDS: ASPirin 325 MG TAB PO ONE (12:34)
[2024-04-15] MEDS: LABETALOL HCL 20 MG/4 ML VL IV ONE ×2 (12:40→13:15)
[2024-04-15 13:00] VITALS: PULSE 147; RESP 16; O2SAT 92
--- NOTE | 2024-04-15 13:13 | ED.PDOC ---
HPI Comments 63y F who presents to the ED for chief complaint of palpitations. Pt states she has been having palpitations since earlier this AM. Pt has noted history of AFIB ans has been having symptoms despite taking her medications. Pt states she is scheduled to have pacemaker placement in April 2024 with . Pt otherwise denies chest pain, shortness of breath, fever, headache or dizziness. Pt otherwise denies any other symptoms at this time. Pt in the ED, has noted heart rate of 145 with all other vitals in normal range. Pt otherwise denies any other symptoms at this time. Chief Complaint: Palpitations Time Seen by MD: 13:09 Primary Care Provider: DANIELLE Reviewed Notes: Medications, Allergies Allergies: Coded Allergies: NO KNOWN ALLERGIES (Unverified , 03/26/13) Home Meds Active Scripts Hydrocodone-Acetaminophen (Hydrocodone Bitartrate/AC 5-325 mg) 1 Tab Tab, 1 TAB PO Q6HP PRN, #20 TAB Prov:FRANSISCA BROWNE MD 12/01/23 Amiodarone Hcl (Amiodarone Hcl) 200 Mg Tab, 200 MG PO BID for 30 Days, #60 TAB Prov:FRANSISCA BROWNE MD 12/01/23 Meloxicam (Meloxicam) 7.5 Mg Tab, 1 TAB PO DAILYP PRN for 30 Days, #30 TAB 0 Refills Prov:MARIZOL FREEMAN NP 09/13/23 Cyclobenzaprine Hcl (Cyclobenzaprine Hcl) 5 Mg Tab, 1 TAB PO QHSP PRN for 30 Days, #30 TAB 0 Refills Prov:MARIZOL FREEMAN NP 09/13/23 Apixaban Base (ELIQUIS) 5 Mg Tab, 5 MG PO BID for 90 Days, #180 TAB Prov:SULMA DIGGS MD 09/26/20 Reported Medications Metoprolol Tartrate (Metoprolol Tartrate) 25 Mg Tab, 1 TAB PO DAILY for 90 Days, #90 11/30/23 Gabapentin (Gabapentin) 100 Mg Cap, 1 CAP PO TID for 90 Days, #180 11/30/23 Citalopram Hydrobromide (Citalopram Hydrobromide) 40 Mg Tab, 40 MG PO DAILY for 30 Days, MG 09/25/20 Information Source: Patient, Relative Mode of Arrival: Ambulatory Past Medical History PAST MEDICAL HISTORY: AFIB, Anxiety, Depression Surgical History: Denies all surgeries 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: No Pertinent 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 Family History Family History: Reviewed,noncontributory to illness, Family hx of HTN Social History Smoker: Cigarettes, Less Than 1 Pack/Day Alcohol: Rarely Drugs: Denies Drug Use Lives In: Home Constitutional: denies: chills, diaphoresis, fatigue, fever, malaise, sweats, weakness, others EENTM: denies: blurred vision, double vision, ear bleeding, ear discharge, ear drainage, ear pain, ear ringing, eye pain, eye redness, hearing loss, mouth pain, mouth swelling, nasal discharge, nose bleeding, nose congestion, nose pain, photophobia, tearing, throat pain, throat swelling, voice changes, others Respiratory: denies: cough, hemoptysis, orthopnea, SOB at rest, shortness of breath, SOB with excertion, stridor, wheezing, others Cardiovascular: reports: chest pain, irregular heart beat, palpitations; denies: dizzy spells, diaphoresis, Dyspnea on exertion, edema, left arm pain, lightheadedness, PND, syncope, others Gastrointestinal: denies: abdomen distended, abdominal pain, blood streaked bowels, constipated, diarrhea, dysphagia, difficulty swallowing, hematemesis, melena, nausea, poor appetite, poor fluid intake, rectal bleeding, rectal pain, vomiting, others Genitourinary: denies: abnormal vagina bleeding, burning, dyspareunia, dysuria, flank pain, frequency, hematuria, incontinence, pain, , vagina discharge, urgency, others Neurological: denies: dizziness, fainting, headache, left sided numbness, left sided weakness, numbness, paresthesia, pre-existing deficit, right sided numbness, right sided weakness, seizure, speech problems, tingling, tremors, weakness, others Musculoskeletal: denies: back pain, gout, joint pain, joint swelling, muscle pain, muscle stiffness, neck pain, others Integumetry: denies: bruises, change in color, change in hair/nails, dryness, laceration, lesions, lumps, rash, wounds, others Allergic/Immunocompromised: denies: Difficulty Healing, Frequent Infections, Hives, Itching, others Hematologic/Lymphatic: denies: anemia, blood clots, easy bleeding, easy bruising, swollen glands, others Endocrine: denies: excessive hunger, excessive sweating, excessive thirst, excessive urination, flushing, intolerance to cold, intolerance to heat, unexplained weight gain, unexplained weight loss, others Psychiatric: denies: anxiety, bipolar disorder, depression, hopeless, panic disorder, schizophrenia, sleepless, suicidal, others All Other Systems: Reviewed and Negative Physical Exam General Appearance: No Apparent Distress, Normal HEENT: Normal ENT Inspection, Pharynx Normal, TMs Normal Neck: Full Range of Motion, Non-Tender, Normal, Normal Inspection Respiratory: Lungs Clear Cardiovascular: Tachycardia Breast Exam: Deferred Gastrointestinal: No Organomegaly, Non Tender, No Pulsatile Mass, Normal Bowel Sounds, Soft Genitalia: Deferred Pelvic: Deferred Rectal: Deferred Extremities: No calf tenderness, Normal capillary refill, Normal inspection, Normal range of motion, Non-tender, No pedal edema Musculoskeletal : Apperance: Normal Neurologic: Alert, dental surgeon II-XII nml as Tested, No Motor Deficits, Normal Affect, Normal Mood, No Sensory Deficits Cerebellar Function: Normal Reflexes: Normal Skin: Dry, Normal Color, Warm Lymphatic: No Adenopathy EKG EKG : Pulse Rate (adult): 145 [place]: Normal Cardiac Rhythm: Aflutter Block: None Hypertrophy: None ST: Normal Comments repeat ekg st 150, rbbb, no dynamic changes after 1st dose labetolol. after second dose, pt remained the same, Dr Collazo came by and cardioverted pt and pt is now nsr 71. no st changes, no ischemia on 12 lead ekg Was a procedure done? Was a procedure done?: Yes Sedation Sedation?: No Informed consent obtained: Yes Sedation start time: 12:00 Sedation end time: 01:50 Sedation total time: 50 mins Sedation provider statement: per Dr Nick Collazo Cardioversion Vagal maneuver: Were attempted Attempts: x1 Resulted Rhythm: NSR Direct Supervision: Yes Informed consent obtained: Yes Risks/benefits/alt described: Yes CP Differential Dx Differential Diagnosis: A-fib, A-Flutter, Angina, Anxiety / Panic Attack, Atrial Dysrhythmia, AV Block 1st Degree, Electrolyte Disorder, Hyperthyroidism, Hyperventilation, Hypoxia, MAT, NV, Pulmonary Embolus, PVC's, Sinus Tachycardia, Torsades De Pointes, Ventricular Dysrhythmia, V-Fib, V-Tach, WPW X-Ray, Labs, Meds, VS Vital Signs Date Time Temp Pulse Resp B/P (MAP) Pulse Ox O2 Delivery O2 Flow Rate FiO2 04/15/24 13:45 71 04/15/24 13:44 67 04/15/24 13:17 150 04/15/24 13:13 147 100/61 04/15/24 12:41 147 04/15/24 12:41 149 13 122/61 (81) 96 04/15/24 12:40 146 122/61 04/15/24 12:24 98.1 141 18 107/73 (84) 96 04/15/24 12:13 145 Lab Test 04/15/24 13:34 04/15/24 12:25 Range/Units Troponin I High Sensitivity Pending Pending White Blood Count 10.1 4.4-10.8 10^3/uL Red Blood Count 5.58 H 4.0-5.20 10^6/uL Hemoglobin 17.7 H 12.2-16.2 g/dL Hematocrit 52.4 H 36.0-46.0 % Mean Corpuscular Volume 93.8 80.0-100.0 fL Mean Corpuscular Hemoglobin 31.7 28.0-32.0 pg Mean Corpuscular Hemoglobin Concent 33.8 32.0-36.0 g/dL Red Cell Distribution Width 15.0 H 11.8-14.3 % Platelet Count 224 140-450 10^3/uL Mean Platelet Volume 8.6 6.9-10.8 fL Neutrophils (%) (Auto) 57.3 37.0-80.0 % Lymphocytes (%) (Auto) 32.3 10.0-50.0 % Monocytes (%) (Auto) 6.5 0.0-12.0 % Eosinophils (%) (Auto) 2.6 0.0-7.0 % Basophils (%) (Auto) 1.3 0.0-2.0 % Neutrophils # (Auto) 5.8 1.6-8.6 10 ^3/uL Lymphocytes # (Auto) 3.3 0.4-5.4 10 ^3/uL Monocytes # (Auto) 0.7 0-1.3 10 ^3/uL Eosinophils # (Auto) 0.3 0-0.8 10 ^3/uL Basophils # (Auto) 0.1 0-0.2 10 ^3/uL Nucleated Red Blood Cells 0.0 % Sodium Level Pending Potassium Level Pending Chloride Level Pending Carbon Dioxide Level Pending Anion Gap Pending Blood Urea Nitrogen Pending Creatinine Pending Glomerular Filtration Rate Calc Pending BUN/Creatinine Ratio Pending Serum Glucose Pending Calcium Level Pending Magnesium Level Pending Total Bilirubin Pending Aspartate Amino Transferase (AST) Pending Alanine Aminotransferase (ALT) Pending Alkaline Phosphatase Pending Total Protein Pending Albumin Pending Current Medications Medications (Trade) Dose Ordered Sig/Zaheer Route Start Time Stop Time Status Last Admin Labetalol HCl (Labetalol HCl) 10 mg ONCE ONCE IV 04/15/24 12:30 04/15/24 12:31 DC 04/15/24 12:40 Aspirin 325 mg ONCE ONCE PO 04/15/24 12:30 04/15/24 12:31 DC 04/15/24 12:34 Midazolam HCl (Versed Injection) 2 mg ONCE ONCE IV 04/15/24 13:30 04/15/24 13:31 DC 04/15/24 13:59 Heparin Sodium (Porcine) 5,000 units ONCE ONCE IV 04/15/24 13:30 04/15/24 13:31 DC 04/15/24 13:56 Time of 1ST Reevaluation: 13:40 Reevaluation 1ST: Unchanged (surveillance system monitor shows afib-flutter) Time of 2ND Reevaluation: 14:00 Reevaluation 2ND: Improved (surveillance system monitor shows nsr) Patient Education/Counseling: Diagnosis, Treatment, Prognosis, Need For Follow Up Family Education/Counseling: Diagnosis, Treatment, No Family Present Additional Information - I reviewed the following notes from patient's past medical encounters: - The following tests were ordered, and results were reviewed by me: (Labs, X- Ray, EKG): EKG x 3, troponin x3, chest x-ray, magnesium, CBC, CMP - Additional information was gathered from interviewing the following independent Historian: (Family, Other Providers, EMT): none - I reviewed and agreed with the following test results read by other provider: (X-ray, CT, US): radiologist - I discussed treatments and results with medical personnel and: (consultants, family): none Departure 1 Departure Time of Disposition: 14:09 Impression: Primary Impression: Tachyarrhythmia Additional Impressions: Episodic atrial flutter Unstable angina Disposition: ADMITTED INPATIENT Admit to: Tele Condition: Serious Discharged With: Self Critical Care Note Critical Care Time?: Yes (55 min-critical care time only) Critical care comment: due to concerns for patient's condition worsening, the care required my highest attention and readiness to intervene. i reviewed the medical records, communicated with medical personnel, consultants, ordered the proper tests, treatments, reassessed the response and results. formulated a plan of care . total time does not include any procedures Stability Stability form required: No Heart Score Heart Score: Heart Score Response (Comments) Value History Highly Suspicious 2 EKG Repolarization Disturb 1 Age 45-64 1 Risk Factors 1 or 2 risk factors 1 Troponin Normal limit 0 Total 5 I personally scribed for LORI DURAND MD ([email or web address]) on 04/15/24 at 13:13. Electronically submitted by Mary Jo Luque ([email or web address]). LORI DURAND MD Apr 15, 2024 13:13
[2024-04-15 13:17] LABS: Basophils # (auto) 0.1 10 ^3/uL (0-0.2); Basophils % (auto) 1.3 % (0.0-2.0); Eosinophils # (auto) 0.3 10 ^3/uL (0-0.8); Eosinophils % (auto) 2.6 % (0.0-7.0); Hematocrit 52.4 % (36.0-46.0); Hemoglobin 17.7 g/dL (12.2-16.2); Lymphocytes # (auto) 3.3 10 ^3/uL (0.4-5.4); Lymphocytes % (auto) 32.3 % (10.0-50.0); Mean Corpuscular Hemoglobin 31.7 pg (28.0-32.0); Mean Corpuscular Hgb Conc. 33.8 g/dL (32.0-36.0); Mean Corpuscular Volume 93.8 fL (80.0-100.0); Monocytes # (auto) 0.7 10 ^3/uL (0-1.3); Monocytes % (auto) 6.5 % (0.0-12.0); Neutrophils # (auto) 5.8 10 ^3/uL (1.6-8.6); Neutrophils % (auto) 57.3 % (37.0-80.0); Platelet Count (auto) 224 10^3/uL (140-450); Red Blood Cells 5.58 10^6/uL (4.0-5.20); White Blood Cell 10.1 10^3/uL (4.4-10.8)
--- NOTE | 2024-04-15 13:28 | DVH ---
XY CHEST PORTABLE, HISTORY: tachycardia COMPARISON: XY CHEST PORTABLE on DOS: 12/24/23, XY CHEST PORTABLE on DOS: 11/29/23, XY CHEST PORTABLE on DOS: 11/27/23 XY CHEST PORTABLE on DOS: 12/24/23, XY CHEST PORTABLE on DOS: 11/29/23, XY CHEST PORTABLE on DOS: 11/27/23 TECHNICAL DATA: 1 view of the chest was obtained. FINDINGS: Lines and tubes: None Cardiomediastinal silhouette: normal Pulmonary vasculature: normal Lung expansion: normal Lung airspace: normal Lung interstitium: normal Pleura: normal Pneumothorax: no Bones: Unremarkable Other: no IMPRESSION: No acute intrathoracic abnormality.
[2024-04-15 13:45] LABS: Alkaline Phosphatase 79 U/L (46-116); Anion Gap 6 (5-15); Calcium 9.6 mg/dL (8.7-10.4); Carbon Dioxide 24 mmol/L (20-31); Magnesium 2.1 mg/dL (1.6-2.6); Sodium 138 mmol/L (136-145)
[2024-04-15] MEDS: MIDAZOLAM HCL 2MG/2ML 2ml VIAL (1mg/ml) IV ONE ×2 (13:45→13:59)
[2024-04-15 13:46] LABS: Total Protein 7.3 g/dL (5.7-8.2)
--- NOTE | 2024-04-15 13:46 | ECG ---
[facility] Test Date: 2024-04-15 Test Time: 13:45:24 Pat Name: ALESSIA WHITMORE Department: er Room: [address] [place] [address] Gender: F Debt Counselor: gp : 1960 Requested By: LORI DURAND Order Number: [id number] Reading MD: Rebel Levy Measurements Intervals [place] Rate: 71 P: 39 [place]: 146 QRS: 48 QRSD: 91 T: 51 QT: 406 QTc: 442 Interpretive Statements Sinus rhythm RSR' in V1 or V2, right VCD or RVH Baseline wander in lead(s) V5 Electronically Signed On 04-17-2024 13:07:16 PST by Rebel Levy Please click the below link to view image of tracing.
[2024-04-15] MEDS: HEPARIN SODIUM (PORCINE) 5000 UNITS/ML 1ML VIAL IV ONE (13:56)
[2024-04-15] MEDS: MIDAZOLAM HCL 2MG/2ML 2ml VIAL (1mg/ml) ONE (14:03)
[2024-04-15 14:15] LABS: BUN/Creatinine Ratio 10.8 (10.0-20.0)
[2024-04-15 14:16] LABS: Alanine Aminotransferase 57 U/L (7-40); Aspartate Aminotransferase 59 U/L (13-40); Bilirubin, Total 0.2 mg/dL (0.2-1.0); Blood Urea Nitrogen 14 mg/dL (9-23); Chloride 108 mmol/L (98-107); Glucose 149 mg/dL (74-106); Potassium 4.8 mmol/L (3.5-5.1)
--- NOTE | 2024-04-15 16:11 | ECG ---
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
[2024-04-15] MEDS ORDERED: MORPHINE SULFATE INJ 2 MG/ml SYRG IV PRN (19:30)
[2024-04-15] MEDS ORDERED: NITROGLYCERIN 0.4 MG SL TAB SL PRN (19:30)
[2024-04-15] MEDS ORDERED: ONDANSETRON HCL 4 MG/2 ML VIAL IV PRN (19:30)
[2024-04-15] MEDS ORDERED: ACETAMINOPHEN 325 MG TAB PO PRN (19:30)
[2024-04-15 20:00] VITALS: PULSE 65; RESP 17; O2SAT 96
--- NOTE | 2024-04-15 22:25 | DVHHP2 ---
History of Present Illness Reason for Visit: Palpitations History of Present Illness 63-year-old female presents for evaluation of palpitations. Patient presents with a one day history of palpitations associated shortness for breath. On arrival patient was noted to be in atrial flutter. Patient was cardioverted in the emergency department. Currently patient's heart rates in the 70s normal sinus. Denies any chest pain. Other acute complaints reported. Past Medical History Depression, anxiety in atrial fibrillation Past Surgical History Denies Family History Noncontributory Smoke: No ALCOHOL: none Drugs: None Lives: with Family Review of Systems Review of Systems Review of systems are currently negative otherwise addressed HPI. Allergies: Coded Allergies: NO KNOWN ALLERGIES (Unverified , 03/26/13) Medications Current Medications Medications Dose Ordered Sig/Zaheer Route Start Time Stop Time Status Last Admin Dose Admin Metoprolol Succinate 25 mg DAILY PO 04/16/24 10:00 Amiodarone HCl 200 mg Q12HR PO 04/15/24 22:00 Gabapentin 100 mg TID PO 04/15/24 22:00 Apixaban 5 mg BID PO 04/15/24 22:00 Temazepam 15 mg QHSP PRN PO 04/15/24 19:30 Ondansetron HCl 4 mg Q4HP PRN IV 04/15/24 19:30 Acetaminophen 650 mg Q6HP PRN PO 04/15/24 19:30 Nitroglycerin 0.4 mg Q5MINP PRN SL 04/15/24 19:30 Morphine Sulfate 2 mg Q30M PRN IV 04/15/24 19:30 Exam Vital Signs Vital Signs Date Time Temp Pulse Resp B/P (MAP) Pulse Ox O2 Delivery O2 Flow Rate FiO2 04/15/24 18:00 62 12 92/46 (61) 96 04/15/24 13:00 Room Air* 0 21 04/15/24 12:24 98.1 Exam Gen: [age] old female in mild distress. Skin: Warm, dry, normal color and texture, no rash. HEENT: Normocephalic atraumatic, mucous membranes moist and pink. Neck: Cervical and supraclavicular nodes normal without enlargement, trachea is midline, thyroid gland is normal without masses. Pulmonary: Clear to auscultation and percussion bilaterally. Cardiac: Regular rate and rhythm. No murmur Abdomen: Soft, nontender, nondistended, bowel sounds present all 4 quadrants, no guarding, no rigidity, no organomegaly. Extremities: No cyanosis, clubbing, no edema Neuro: Cranial nerves II through XII grossly intact, normal affect and speech, no focal motor deficits. Labs/Xrays ORDERING PHYSICIAN: CONNIE SANDOVAL PROCEDURE(s): ECIDC - ECHO 2D MODE CARDIAC DOP REASON: afib with rvr ORDER NUMBER(s): [id number], ACCESSION NUMBER(s): [id number] APPROVED REPORT EXAM: Two-dimensional and M-mode echocardiogram with Doppler and color Doppler. Blood Pressure: 102/59 mmHg INDICATION a fib with rvr DIMENSIONS LVDd 4.4 (3.8-5.7cm) LA (2D) 4.5 (1.9-4.0cm) Aortic Root 3.2 (2.0- 3.7cm) LVDs 3.3 (2.5-4.0cm) LA (MM) (1.9-4.0cm) Aortic Cusp Exc 1.9 (1.5- 2.0cm) EF (%) 48.3 (55-70%) Rt. Atrium 4.3 (1.9-4.0cm) Asc. Aorta cm IVSd 0.9 (0.7-1.1cm) RV (D) 3.5 (1.8-2.4cm) PWd 1.1 (0.7-1.1cm) Mitral Valve Mitral Mitral Stenosis E wave 1.19m/s MV Mean GR. 3mmHg A wave 0.46m/s MV Peak GR. 56mmHg E/A ratio 2.6 2D MVA cm2 DECEL Time 161ms PRESS 1/2 Time ms Aortic Valve Aortic Valve Aortic Stenosis V1 0.81m/s AO Mean GR. 6mmHg V2 1.70m/s AO Peak GR. 12mmHg Pulmonic Valve V2 0.54m/s Tricuspid Valve TR Velocity 2.25m/s RVSP 36mmHg Other Information Technically limited study due to body habitus. Conclusion lvef 40% by visual estimate arrhytmia decreases overall sensitivity RV enlarged mild biatrial enlargement no severe valve abnromalities noted SIGNED BY: DENISE SANTOS MD ORDERING PHYSICIAN: LORI DURAND MD PROCEDURE(s): CXRP - CHEST PORTABLE REASON: tachycardia ORDER NUMBER(s): [id number], ACCESSION NUMBER(s): [id number] XY CHEST PORTABLE, HISTORY: tachycardia COMPARISON: XY CHEST PORTABLE on DOS: 12/24/23, XY CHEST PORTABLE on DOS: 11/29/23, XY CHEST PORTABLE on DOS: 11/27/23 XY CHEST PORTABLE on DOS: 12/24/23, XY CHEST PORTABLE on DOS: 11/29/23, XY CHEST PORTABLE on DOS: 11/27/23 TECHNICAL DATA: 1 view of the chest was obtained. FINDINGS: Lines and tubes: None Cardiomediastinal silhouette: normal Pulmonary vasculature: normal Lung expansion: normal Lung airspace: normal Lung interstitium: normal Pleura: normal Pneumothorax: no Bones: Unremarkable Other: no IMPRESSION: No acute intrathoracic abnormality. ATED BY: IHSAN THOMAS MD DICTATED DATE/TIME: 04/15/24 1326 Labs Test 04/15/24 15:27 04/15/24 12:25 Range/Units Troponin I High Sensitivity 4 </=34 ng/L White Blood Count 10.1 4.4-10.8 10^3/uL Red Blood Count 5.58 H 4.0-5.20 10^6/uL Hemoglobin 17.7 H 12.2-16.2 g/dL Hematocrit 52.4 H 36.0-46.0 % Mean Corpuscular Volume 93.8 80.0-100.0 fL Mean Corpuscular Hemoglobin 31.7 28.0-32.0 pg Mean Corpuscular Hemoglobin Concent 33.8 32.0-36.0 g/dL Red Cell Distribution Width 15.0 H 11.8-14.3 % Platelet Count 224 140-450 10^3/uL Mean Platelet Volume 8.6 6.9-10.8 fL Neutrophils (%) (Auto) 57.3 37.0-80.0 % Lymphocytes (%) (Auto) 32.3 10.0-50.0 % Monocytes (%) (Auto) 6.5 0.0-12.0 % Eosinophils (%) (Auto) 2.6 0.0-7.0 % Basophils (%) (Auto) 1.3 0.0-2.0 % Neutrophils # (Auto) 5.8 1.6-8.6 10 ^3/uL Lymphocytes # (Auto) 3.3 0.4-5.4 10 ^3/uL Monocytes # (Auto) 0.7 0-1.3 10 ^3/uL Eosinophils # (Auto) 0.3 0-0.8 10 ^3/uL Basophils # (Auto) 0.1 0-0.2 10 ^3/uL Nucleated Red Blood Cells 0.0 % Sodium Level 138 136-145 mmol/L Potassium Level 4.8 3.5-5.1 mmol/L Chloride Level 108 H 98-107 mmol/L Carbon Dioxide Level 24 20-31 mmol/L Anion Gap 6 5-15 Blood Urea Nitrogen 14 9-23 mg/dL Creatinine 1.30 H 0.550-1.02 mg/dL Glomerular Filtration Rate Calc 47 >90 mL/min BUN/Creatinine Ratio 10.8 10.0-20.0 Serum Glucose 149 H 74-106 mg/dL Calcium Level 9.6 8.7-10.4 mg/dL Magnesium Level 2.1 1.6-2.6 mg/dL Total Bilirubin 0.2 0.2-1.0 mg/dL Aspartate Amino Transferase (AST) 59 H 13-40 U/L Alanine Aminotransferase (ALT) 57 H 7-40 U/L Alkaline Phosphatase 79 46-116 U/L Total Protein 7.3 5.7-8.2 g/dL Albumin 4.0 3.2-4.8 g/dL Assessment/Plan Assessment/Plan Assessment Atrial flutter Tachy arrhythmia Chronic kidney disease Hypertension Secondary coagulopathy Plan Admit the patient to telemetry to the hospitalist Cardiology consultation Resume home medications Continue treatment per orders. Plan discussed with: Patient My Orders Orders - TIGIST MULLEN AGACNP Procedure Category Date Status Time Metoprolol Xl PHA 04/16/24 In Process Succinate (Toprol Xl) 10:00 Amiodarone Tablet PHA 04/15/24 In Process (Cordarone Tablet) 22:00 Gabapentin Capsule PHA 04/15/24 In Process (Neurontin Capsule) 22:00 Apixaban (Eliquis) PHA 04/15/24 In Process 22:00 Basic Metabolic Panel LAB 04/16/24 Verified 04:00 Admit ADMIT 04/15/24 Transmitted 19:17 Temazepam (Restoril) PHA 04/15/24 In Process 19:30 Ondansetron Hcl PHA 04/15/24 In Process (Zofran) 19:30 Cardiac DIET 04/16/24 Transmitted Diet-2gna,Lofat,Lochol Breakfast Condition: Fair HOANG 04/15/24 In Process 19:17 Acetaminophen Tablet PHA 04/15/24 In Process (Tylenol Tablet) 19:30 Bedrest With Bathroom [facility] 04/15/24 In Process Privileg 19:17 Nitroglycerin [facility] 04/15/24 In Process Sublingual (Ntrostat 19:30 Morphine Sulfate PHA 04/15/24 In Process Injection 19:30 Stat Ekg For Chest [facility] 04/15/24 In Process Pain 19:17 Notify Md Of Changes [facility] 04/15/24 In Process From Base 19:17 Senior Nurse Manager For [facility] 04/15/24 In Process 24 Hours 19:17 Emergency Dysrhythmia [facility] 04/15/24 In Process Protocol 19:17 Rhythm Strips Once [facility] 04/15/24 In Process Every Shift 19:17 Oxygen By Nasal RT 04/15/24 Transmitted Cannula 19:17 * Cardiology Consult CONS 04/15/24 Transmitted 19:17 Date of Service: Apr 15, 2024 Billing Provider: TIGIST MULLEN Common Visit Codes: [id number] INP/OBS CARE (HIGH) TIGIST MULLEN Apr 15, 2024 22:25
[2024-04-15] MEDS: GABAPENTIN 100 MG CAP PO SCH (22:26)
[2024-04-15] MEDS: APIXABAN 5 MG TAB PO SCH (22:27)
[2024-04-15] MEDS: AMIODARONE HCL 200 MG TAB PO SCH (22:27)
[2024-04-15] MEDS: TEMAZEPAM 15 MG CAP PO PRN (23:34)
--- NOTE | 2024-04-16 00:17 | DVHINCON2 ---
Date of service: Apr 15, 2024 Referring Physician Donaldo Reason for Consultation Aflutter History of Present Illness This is a 63 year old female with a PMH of AFIB, Anxiety, Depression who presents to the ED for a complaint of palpitations. Patient states she has been having palpitations since earlier this AM. Patient has noted history of AFIB and has been having symptoms despite taking her medications. Patient states she is scheduled to have pacemaker placement in April 2024 with . Patient in the ED, has noted heart rate of 145 with all other vitals in normal range. Troponin is negative x3. STICKER HAND 1.30, AST 59, ALT 57. Chest x-ray shows NAD. Patient was admitted to the hospital. I am asked to consult on this patient. Family History: Alcoholism G8 FATHER Diabetes mellitus G8 MOTHER G8 FATHER FH: CHF (congestive heart failure) G8 FATHER Hypertension G8 FATHER Allergies: Coded Allergies: NO KNOWN ALLERGIES (Unverified , 03/26/13) Home Meds Active Scripts Hydrocodone-Acetaminophen (Hydrocodone Bitartrate/AC 5-325 mg) 1 Tab Tab, 1 TAB PO Q6HP PRN, #20 TAB Prov:FRANSISCA BROWNE MD 12/01/23 Amiodarone Hcl (Amiodarone Hcl) 200 Mg Tab, 200 MG PO BID for 30 Days, #60 TAB Prov:FRANSISCA BROWNE MD 12/01/23 Meloxicam (Meloxicam) 7.5 Mg Tab, 1 TAB PO DAILYP PRN for 30 Days, #30 TAB 0 Refills Prov:MARIZOL FREEMAN NP 09/13/23 Cyclobenzaprine Hcl (Cyclobenzaprine Hcl) 5 Mg Tab, 1 TAB PO QHSP PRN for 30 Days, #30 TAB 0 Refills Prov:MARIZOL FREEMAN NP 09/13/23 Apixaban Base (ELIQUIS) 5 Mg Tab, 5 MG PO BID for 90 Days, #180 TAB Prov:SULMA DIGGS MD 09/26/20 Reported Medications Metoprolol Tartrate (Metoprolol Tartrate) 25 Mg Tab, 1 TAB PO DAILY for 90 Days, #90 11/30/23 Gabapentin (Gabapentin) 100 Mg Cap, 1 CAP PO TID for 90 Days, #180 11/30/23 Citalopram Hydrobromide (Citalopram Hydrobromide) 40 Mg Tab, 40 MG PO DAILY for 30 Days, MG 09/25/20 Current Medications Current Medications Medications (Trade) Dose Ordered Sig/Zaheer Route PRN Reason Start Time Stop Time Status Last Admin Metoprolol Succinate (Toprol Xl) 25 mg DAILY PO 04/16/24 10:00 Amiodarone HCl (Cordarone Tablet) 200 mg Q12HR PO 04/15/24 22:00 04/15/24 22:27 Gabapentin (Neurontin Capsule) 100 mg TID PO 04/15/24 22:00 04/15/24 22:26 Apixaban (Eliquis) 5 mg BID PO 04/15/24 22:00 04/15/24 22:27 Temazepam (Restoril) 15 mg QHSP PRN PO FOR INSOMNIA 04/15/24 19:30 Ondansetron HCl (Zofran) 4 mg Q4HP PRN IV NAUSEA / VOMITING 04/15/24 19:30 Acetaminophen (Tylenol Tablet) 650 mg Q6HP PRN PO PAIN SCALE 1-3 OR TEMP>100.4 04/15/24 19:30 Nitroglycerin (Ntrostat Sublingual) 0.4 mg Q5MINP PRN SL FOR CHEST PAIN 04/15/24 19:30 Morphine Sulfate 2 mg Q30M PRN IV FOR CHEST PAIN 04/15/24 19:30 Review of Systems Constitutional: denies: chills, diaphoresis, fatigue, fever, malaise, sweats, weakness, others EENTM: denies: blurred vision, double vision, ear bleeding, ear discharge, ear drainage, ear pain, ear ringing, eye pain, eye redness, hearing loss, mouth pain, mouth swelling, nasal discharge, nose bleeding, nose congestion, nose pain, photophobia, tearing, throat pain, throat swelling, voice changes, others Respiratory: denies: cough, hemoptysis, orthopnea, SOB at rest, shortness of breath, SOB with excertion, stridor, wheezing, others Cardiovascular: reports: chest pain, irregular heart beat, palpitations; denies: dizzy spells, diaphoresis, Dyspnea on exertion, edema, left arm pain, lightheadedness, PND, syncope, others Gastrointestinal: denies: abdomen distended, abdominal pain, blood streaked bowels, constipated, diarrhea, dysphagia, difficulty swallowing, hematemesis, melena, nausea, poor appetite, poor fluid intake, rectal bleeding, rectal pain, vomiting, others Genitourinary: denies: abnormal vagina bleeding, burning, dyspareunia, dysuria, flank pain, frequency, hematuria, incontinence, pain, , vagina discharge, urgency, others Neurological: denies: dizziness, fainting, headache, left sided numbness, left sided weakness, numbness, paresthesia, pre-existing deficit, right sided numbness, right sided weakness, seizure, speech problems, tingling, tremors, weakness, others Musculoskeletal: denies: back pain, gout, joint pain, joint swelling, muscle p ain, muscle stiffness, neck pain, others Integumetry: denies: bruises, change in color, change in hair/nails, dryness, laceration, lesions, lumps, rash, wounds, others Allergic/Immunocompromised: denies: Difficulty Healing, Frequent Infections, Hives, Itching, others Hematologic/Lymphatic: denies: anemia, blood clots, easy bleeding, easy bruising, swollen glands, others Endocrine: denies: excessive hunger, excessive sweating, excessive thirst, excessive urination, flushing, intolerance to cold, intolerance to heat, unexplained weight gain, unexplained weight loss, others Psychiatric: denies: anxiety, bipolar disorder, depression, hopeless, panic disorder, schizophrenia, sleepless, suicidal, others All Other Systems: Reviewed and Negative Vital Signs Vital Signs Date Time Temp Pulse Resp B/P (MAP) Pulse Ox O2 Delivery O2 Flow Rate FiO2 04/15/24 18:00 62 12 92/46 (61) 96 04/15/24 13:00 Room Air* 0 21 04/15/24 12:24 98.1 Physical Exam GENERAL: Awake, alert, oriented. LUNGS: Clear. CARDIOVASCULAR: Heart sounds are good. ABDOMEN: Soft. Labs/Diagnostic Data Labs Test 04/15/24 15:27 04/15/24 12:25 Range/Units Troponin I High Sensitivity 4 </=34 ng/L White Blood Count 10.1 4.4-10.8 10^3/uL Red Blood Count 5.58 H 4.0-5.20 10^6/uL Hemoglobin 17.7 H 12.2-16.2 g/dL Hematocrit 52.4 H 36.0-46.0 % Mean Corpuscular Volume 93.8 80.0-100.0 fL Mean Corpuscular Hemoglobin 31.7 28.0-32.0 pg Mean Corpuscular Hemoglobin Concent 33.8 32.0-36.0 g/dL Red Cell Distribution Width 15.0 H 11.8-14.3 % Platelet Count 224 140-450 10^3/uL Mean Platelet Volume 8.6 6.9-10.8 fL Neutrophils (%) (Auto) 57.3 37.0-80.0 % Lymphocytes (%) (Auto) 32.3 10.0-50.0 % Monocytes (%) (Auto) 6.5 0.0-12.0 % Eosinophils (%) (Auto) 2.6 0.0-7.0 % Basophils (%) (Auto) 1.3 0.0-2.0 % Neutrophils # (Auto) 5.8 1.6-8.6 10 ^3/uL Lymphocytes # (Auto) 3.3 0.4-5.4 10 ^3/uL Monocytes # (Auto) 0.7 0-1.3 10 ^3/uL Eosinophils # (Auto) 0.3 0-0.8 10 ^3/uL Basophils # (Auto) 0.1 0-0.2 10 ^3/uL Nucleated Red Blood Cells 0.0 % Sodium Level 138 136-145 mmol/L Potassium Level 4.8 3.5-5.1 mmol/L Chloride Level 108 H 98-107 mmol/L Carbon Dioxide Level 24 20-31 mmol/L Anion Gap 6 5-15 Blood Urea Nitrogen 14 9-23 mg/dL Creatinine 1.30 H 0.550-1.02 mg/dL Glomerular Filtration Rate Calc 47 >90 mL/min BUN/Creatinine Ratio 10.8 10.0-20.0 Serum Glucose 149 H 74-106 mg/dL Calcium Level 9.6 8.7-10.4 mg/dL Magnesium Level 2.1 1.6-2.6 mg/dL Total Bilirubin 0.2 0.2-1.0 mg/dL Aspartate Amino Transferase (AST) 59 H 13-40 U/L Alanine Aminotransferase (ALT) 57 H 7-40 U/L Alkaline Phosphatase 79 46-116 U/L Total Protein 7.3 5.7-8.2 g/dL Albumin 4.0 3.2-4.8 g/dL Assessment Atrial flutter. Tachy arrhythmia. Chronic kidney disease. Hypertension. Secondary coagulopathy. Plan/Recommendation I agree with your ongoing assessment and care of plan. Metoprolol. Amiodarone. Eliquis. Metoprolol. Morphine for pain management. Additional plan as per the hospital course. A total of 45 minutes was spent reviewing the patient record, examining the patient, making a diagnostic and therapeutic plan, discussing this plan with medical personnel, following up on diagnostic studies and following the patient for clinical stability excluding any and all procedures. At least 50% of this time was spent in direct, [id number] contact. Plan discussed with: Patient LUISA NUNEZ MD Apr 15, 2024 22:39
[2024-04-16 01:00] VITALS: BP 119/68; PULSE 57; RESP 17; TEMP 98.2; O2SAT 94
[2024-04-16 05:00] VITALS: BP 122/53; PULSE 60; RESP 18; TEMP 98; O2SAT 93
[2024-04-16 06:34] LABS: Potassium 4.4 mmol/L (3.5-5.1); Sodium 142 mmol/L (136-145)
[2024-04-16 06:35] LABS: Anion Gap 4 (5-15); Calcium 9.3 mg/dL (8.7-10.4); Carbon Dioxide 29 mmol/L (20-31)
[2024-04-16 06:40] LABS: Blood Urea Nitrogen 17 mg/dL (9-23); Glucose 94 mg/dL (74-106)
[2024-04-16 06:41] LABS: Chloride 109 mmol/L (98-107)
[2024-04-16 08:00] VITALS: PULSE 61
[2024-04-16] MEDS: METOPROLOL SUCCINATE XL 50 MG TAB PO SCH (08:59)
[2024-04-16 09:00] VITALS: BP 119/70; PULSE 61; RESP 16; TEMP 97.8; O2SAT 94
[2024-04-16] MEDS ORDERED: PATIENTS OWN MEDICATION (Citalopram Hydrobromide 40 MG) PO SCH (10:00)
[2024-04-16] MEDS: CITALOPRAM HYDROBR 20 MG TAB PO SCH (10:16)
[2024-04-16 13:00] VITALS: BP 118/75; PULSE 59; RESP 16; TEMP 98.1; O2SAT 95
--- NOTE | 2024-04-16 13:57 | DVHDSRES ---
Discharge Summary Date of Admission Resident Creating Document: XIMENA MART RESIDENT Apr 15, 2024 at 19:17 Date of Discharge: Apr 16, 2024 Admitting Diagnosis Shortness of breaths with palpitation Labs/Diagnostic Data: Laboratory Results Test 04/16/24 05:35 04/15/24 15:27 04/15/24 12:25 Sodium Level 142 mmol/L (136-145) Potassium Level 4.4 mmol/L (3.5-5.1) Chloride Level 109 mmol/L (98-107) Carbon Dioxide Level 29 mmol/L (20-31) Anion Gap 4 (5-15) Blood Urea Nitrogen 17 mg/dL (9-23) Creatinine 0.63 mg/dL (0.550-1.02) Glomerular Filtration Rate Calc 101 mL/min (>90) BUN/Creatinine Ratio 27.0 (10.0-20.0) Serum Glucose 94 mg/dL (74-106) Calcium Level 9.3 mg/dL (8.7-10.4) Thyroid Stimulating Hormone (TSH) 1.62 uIU/mL (0.55-4.78) Troponin I High Sensitivity 4 ng/L (</=34) White Blood Count 10.1 10^3/uL (4.4-10.8) Red Blood Count 5.58 10^6/uL (4.0-5.20) Hemoglobin 17.7 g/dL (12.2-16.2) Hematocrit 52.4 % (36.0-46.0) Mean Corpuscular Volume 93.8 fL (80.0-100.0) Mean Corpuscular Hemoglobin 31.7 pg (28.0-32.0) Mean Corpuscular Hemoglobin Concent 33.8 g/dL (32.0-36.0) Red Cell Distribution Width 15.0 % (11.8-14.3) Platelet Count 224 10^3/uL (140-450) Mean Platelet Volume 8.6 fL (6.9-10.8) Neutrophils (%) (Auto) 57.3 % (37.0-80.0) Lymphocytes (%) (Auto) 32.3 % (10.0-50.0) Monocytes (%) (Auto) 6.5 % (0.0-12.0) Eosinophils (%) (Auto) 2.6 % (0.0-7.0) Basophils (%) (Auto) 1.3 % (0.0-2.0) Neutrophils # (Auto) 5.8 10 ^3/uL (1.6-8.6) Lymphocytes # (Auto) 3.3 10 ^3/uL (0.4-5.4) Monocytes # (Auto) 0.7 10 ^3/uL (0-1.3) Eosinophils # (Auto) 0.3 10 ^3/uL (0-0.8) Basophils # (Auto) 0.1 10 ^3/uL (0-0.2) Nucleated Red Blood Cells 0.0 % Magnesium Level 2.1 mg/dL (1.6-2.6) Total Bilirubin 0.2 mg/dL (0.2-1.0) Aspartate Amino Transferase (AST) 59 U/L (13-40) Alanine Aminotransferase (ALT) 57 U/L (7-40) Alkaline Phosphatase 79 U/L (46-116) Total Protein 7.3 g/dL (5.7-8.2) Albumin 4.0 g/dL (3.2-4.8) Other Laboratory Tests 04/16/24 05:35 04/15/24 12:25 Brief Hx & Hospital Course: 63 years old male with past medical history of atrial fibrillation, hypertension, depression, anxiety came with a complaint of shortness of breath and palpitation for last 2 days. Patient also endorsed dizziness and light headache but never lost consciousness. Initial lab workup revealed polycythemia with a hemoglobin 7.7, elevated serum creatinine 1.3, GFR 47, magnesium 2.1, mildly elevated AST 59, elevated ALT 57, troponin I with a normal limit, chest x-ray no acute cardiopulmonary disease. EKG revealed atrial fibrillation with rapid ventricular rate. Patient had electrical cardioversion at the ED. patient returned to sinus rhythm after cardioversion. Patient is hemodynamically stable. No acute symptoms. Patient's previous echo on 11/28/2023 revealed LVEF 40% with bilateral enlargement of the atrium. Was seen by apartment maintenance supervisor. Recommendation reviewed and appreciated. Patient is being discharged home in hemodynamically stable condition. Patient was advised to resume home medication. No new medication ordered. Patient verbalized understanding. Patient was advised to follow up with the primary care physician in 1 week and to follow up with the apartment maintenance supervisor in 2-4 weeks. General examination- awake, alert, conversant, not in acute distress HEENT- PEERLA, no acute nasal discharge Cardiovascular- S1-S2 audible, rate and rhythm regular, no murmur Respiratory- CTAB, no wheeze or rhonchi Gastrointestinal-nontender, bowel sound+. Nondistended Musculoskeletal-no acute joint swelling or tenderness or redness# Lower extremity-no leg edema Neurological- cranial nerves intact, no acute dysarthria or dysphagia Psychiatry- denies depression or SI or HI Skin- no acute rash or purpura Operations or Procedures DIAGNOSTIC IMAGING Diagnostic Imaging Report : [id number] Signed PATIENT: ALESSIA WHITMORE ACCT: [id number] UNIT: [id number] : 1960 LOC: ER ROOM / BED: / AGE / SEX: 63 / F ADM STATUS: REG ER SERVICE 1220 ORDERING PHYSICIAN: LORI DURAND MD PROCEDURE(s): CXRP - CHEST PORTABLE REASON: tachycardia ORDER NUMBER(s): [id number], ACCESSION NUMBER(s): [id number] XY CHEST PORTABLE, HISTORY: tachycardia COMPARISON: XY CHEST PORTABLE on DOS: 12/24/23, XY CHEST PORTABLE on DOS: 11/29/23, XY CHEST PORTABLE on DOS: 11/27/23 XY CHEST PORTABLE on DOS: 12/24/23, XY CHEST PORTABLE on DOS: 11/29/23, XY CHEST PORTABLE on DOS: 11/27/23 TECHNICAL DATA: 1 view of the chest was obtained. FINDINGS: Lines and tubes: None Cardiomediastinal silhouette: normal Pulmonary vasculature: normal Lung expansion: normal Lung airspace: normal Lung interstitium: normal Pleura: normal Pneumothorax: no Bones: Unremarkable Other: no IMPRESSION: No acute intrathoracic abnormality. ATED BY: IHSAN THOMAS MD DICTATED DATE/TIME: 04/15/24 132 SIGNED BY: IHSAN THOMAS MD SIGNED DATE/TIME: 04/15/24 132 CC: PATIENT: ALESSIA WHITMORE ACCT: [id number] : 1960 LOC: ER ROOM / BED: / AGE / SEX: 63 / F ADM STATUS: REG ER SERVICE 1520 UNIT: [id number] ORDERING PHYSICIAN: LORI DURAND MD PROCEDURE(s): EKG - ELECTROCARDIGRAM ORDER NUMBER(s): [id number], ACCESSION NUMBER(s): [id number] Date: 2024-04-15 Test Time: 16:10:05 Pat Name: ALESSIA WHITMORE Department: ER Room: Gender: F Digester Operator: LETHA : 1960 Requested By: LORI DURAND Order Number: [id number] Reading MD: Measurements Intervals [place] Rate: 61 P: 33 [place]: 160 QRS: 48 QRSD: 89 T: 46 QT: 453 QTc: 457 Interpretive Statements Sinus rhythm Please click the below link to view image of tracing. DICTATED BY: DICTATED DATE/TIME:04/15/24 1610 ELECTRONICALLY SIGNED BY: ELECTRONICALLY CO-SIGNED BY: EKG Name: ALESSIA WHITMORE Acct: [id number] [place] [address] ELECTROCARDIOGRAM REPORT PATIENT: ALESSIA WHITMORE ACCT: [id number] : 1960 LOC: ER ROOM / BED: / AGE / SEX: 63 / F ADM STATUS: REG ER SERVICE 1320 UNIT: [id number] ORDERING PHYSICIAN: LORI DURAND MD PROCEDURE(s): EKG - ELECTROCARDIGRAM ORDER NUMBER(s): [id number], ACCESSION NUMBER(s): [id number] Test Date: 2024-04-15 Test Time: 13:45:24 Pat Name: ALESSIA WHITMORE Department: er Room: Gender: F Digester Operator: richard : 1960 Requested By: LORI DURAND Order Number: [id number] Reading MD: Measurements Intervals [place] Rate: 71 P: 39 NJ: 146 QRS: 48 QRSD: 91 T: 51 QT: 406 QTc: 442 Interpretive Statements Sinus rhythm RSR' in V1 or V2, right VCD or RVH Baseline wander in lead(s) V5 Please click the below link to view image of tracing. DICTATED BY: DICTATED DATE/TIME:04/15/24 1345 ELECTRONICALLY SIGNED BY: ELECTRONICALLY CO-SIGNED BY: Condition at Discharge: Stable Final Diagnosis/Problems List Atrial flutter with rapid ventricular rate, now sinus rhythm Tachyarrhythmia History of atrial fibrillation Chronic kidney disease. Hypertension. Secondary coagulopathy. Depression Anxiety Discharge Disposition: Home Discharge Instruct/Medications Diet: Cardiac 2g Na,low cholest Activity: No Restrictions, As Tolerated Follow Up/Referral: Please follow up with the apartment maintenance supervisor in 1-2 weeks and follow up with your primary care physician in 1 week Please be compliant with the home meds Medications: Please resume home medications No new medication ordered Discharge Statement: "Patient was advised to return to the ER or call 911 if any headaches, dizziness, shortness of breath, chest pain, abdominal pain, bleeding, fevers, or worsening of medical condition. Patient was counseled about treatment plan, medications, possible side effects, patientverbalized understanding. All questions were answered to the best of my ability. This discharge took greater then 30 minutes in planning, reviewing documentation, counseling the patient, and discussing with other team members." ASSESSMENT ASSESSMENT Assessment Atrial flutter with rapid ventricular rate, now sinus rhythm Date of Service: Apr 16, 2024 Billing Provider: FRANSISCA BROWNE MD Common Visit Codes: 83711-DSZ/OBS DISCH DAY >30min XIMENA MART RESIDENT Apr 16, 2024 13:57 FRANSISCA BROWNE MD Apr 17, 2024 20:49
--- NOTE | 2024-04-16 17:03 | DVHPN2 ---
Progress Note - Dictate Date Seen: Apr 16, 2024 Medical Necessity Reason Pt with a Central, PICC or Fol: No Subjective Patient was seen and evaluated in follow up. Patient complaining of palpitations. TSH 1.62. vital signs Vital Sign Date Time Temp Pulse Resp B/P (MAP) Pulse Ox O2 Delivery O2 Flow Rate FiO2 04/16/24 13:00 98.1 59 16 118/75 (89) 95 98.1 04/16/24 08:00 Room Air* 0 21 Total Intake and Output 04/15/24 04/15/24 04/16/24 15:00 23:00 07:00 Intake Total 300 ml Balance 300 ml medications Current Medications Medications Dose Ordered Sig/Zaheer Route Start Time Stop Time Status Last Admin Dose Admin Patient Own Medication 40 mg DAILY PO 04/16/24 10:00 UNV objective GENERAL: Awake, alert, oriented. LUNGS: Clear. CARDIOVASCULAR: Heart sounds are good. ABDOMEN: Soft. laboratory and microbiology Laboratory Tests 04/16/24 05:35 04/15/24 12:25 Test 04/16/24 05:35 Range/Units Serum Glucose 94 74-106 mg/dL Problem List Atrial flutter. Tachy arrhythmia. Chronic kidney disease. Hypertension. Secondary coagulopathy. Assessment/Plan Continued all current supportive medical care. Amiodarone. Eliquis. Metoprolol. Morphine for pain management. Additional plan as per the hospital course. Plan discussed with: Patient LUISA NUNEZ MD Apr 16, 2024 17:03
--- NOTE | 2024-04-17 14:04 | ECG ---
[facility] Test Date: 2024-04-15 Test Time: 13:17:30 Pat Name: ALESSIA WHITMORE Department: ER Room: [address] [place] [address] 4 Gender: F Technology Professional: LETHA : 1960 Requested By: LORI DURAND Order Number: [id number] Reading MD: Rebel Levy Measurements Intervals [place] Rate: 150 P: 228 PA: 126 QRS: 19 QRSD: 156 T: -79 QT: 375 QTc: 593 Interpretive Statements Atrial flutter Right bundle branch block Abnormal T, consider ischemia, inferior leads Baseline wander in lead(s) II,III,aVR,aVL,aVF,V1,V2,V6 Electronically Signed On 04-19-2024 14:15:51 PST by Rebel Levy Please click the below link to view image of tracing.
== END 2024-04-16 16:03 | disposition home or self-care (01) | DRG 309 ==
LOC: ER 12:13 → TELE 19:17 → EAST 22:46 → TELE-E-ADS 04-16 02:01
PROVIDERS: ADMIT Internal Medicine Geriatric Medicine; ATTEND Internal Medicine
PROC: 5A2204Z Restoration of Cardiac Rhythm, Single (ICD-10-PCS; principal; 2024-04-15)
DX: I48.3 Typical atrial flutter (principal); D68.9 Coagulation defect, unspecified; I20.0 Unstable angina; I48.91 Unspecified atrial fibrillation; N18.9 Chronic kidney disease, unspecified; R00.0 Tachycardia, unspecified; F17.210 Nicotine dependence, cigarettes, uncomplicated; F32.A Depression, unspecified; F41.9 Anxiety disorder, unspecified; I12.9 Hypertensive chronic kidney disease with stage 1 through stage 4 chronic kidney disease, or unspecified chronic kidney disease; D75.1 Secondary polycythemia; Z95.0 Presence of cardiac pacemaker; Z83.3 Family history of diabetes mellitus; Z82.49 Family history of ischemic heart disease and other diseases of the circulatory system; Z79.899 Other long term (current) drug therapy
CPT/HCPCS: 36415; 71045; 80048; 80053; 83735; 84443; 84484; 85025; 92960; 93005; 99152; 99153; 99291; G0378; J2250

== ENCOUNTER 2024-05-18 12:01 | Inpatient (IN) | payer SELFPAY ==
[~2024-05-18] VITALS: Ht 160 cm; Wt 98.4 kg
--- NOTE | 2024-05-18 12:40 | ECG ---
[facility] Test Date: 2024-05-18 Test Time: 12:24:26 Pat Name: ALESSIA WHITMORE Department: ER Room: Gender: F Bulb Sorter: WANDA : 1960 Requested By: EDIS RAMIREZ Order Number: [id number] Reading MD: Rebel Levy Measurements Intervals [place] Rate: 149 P: 118 RI: 95 QRS: 0 QRSD: 163 T: -68 QT: 371 QTc: 584 Interpretive Statements Supraventricular tachycardia Right bundle branch block Probable anteroseptal infarct, old Abnormal T, consider ischemia, inferior leads Baseline wander in lead(s) V1 Electronically Signed On 05-18-2024 17:24:21 PST by Rebel Levy Please click the below link to view image of tracing.
--- NOTE | 2024-05-18 12:57 | ED.PDOC ---
HPI Comments 63-year-old female with PMHx A-Fib presents with a chief complaint of palpitations x onset 1 hour ago with associated chest pain. Patient states that her pain is localized to her sternal region, nonradiating, describes as heaviness, and is associated with her heart palpitations. Patient reports that Dr. Sauceda is her eligibility manager and that she is scheduled for a cardiac ablation in May 2024. Patient reports that right now all she feels is palpitations, chest heaviness, and a mild headache. No other symptoms or modifying factors present at this time. Chief Complaint: Palpitations Time Seen by MD: 12:45 Primary Care Provider: DANIELLE Reviewed Notes: Medications, Allergies Allergies: Coded Allergies: NO KNOWN ALLERGIES (Unverified , 03/26/13) Home Meds Active Scripts Hydrocodone-Acetaminophen (Hydrocodone Bitartrate/AC 5-325 mg) 1 Tab Tab, 1 TAB PO Q6HP PRN, #20 TAB Prov:FRANSISCA BROWNE MD 12/01/23 Amiodarone Hcl (Amiodarone Hcl) 200 Mg Tab, 200 MG PO BID for 30 Days, #60 TAB Prov:FRANSISCA BROWNE MD 12/01/23 Meloxicam (Meloxicam) 7.5 Mg Tab, 1 TAB PO DAILYP PRN for 30 Days, #30 TAB 0 Refills Prov:MARIZOL FREEMAN NP 09/13/23 Cyclobenzaprine Hcl (Cyclobenzaprine Hcl) 5 Mg Tab, 1 TAB PO QHSP PRN for 30 Days, #30 TAB 0 Refills Prov:MARIZOL FREEMAN NP 09/13/23 Apixaban Base (ELIQUIS) 5 Mg Tab, 5 MG PO BID for 90 Days, #180 TAB Prov:SULMA DIGGS MD 09/26/20 Reported Medications Metoprolol Tartrate (Metoprolol Tartrate) 25 Mg Tab, 1 TAB PO DAILY for 90 Days, #90 11/30/23 Gabapentin (Gabapentin) 100 Mg Cap, 1 CAP PO TID for 90 Days, #180 11/30/23 Citalopram Hydrobromide (Citalopram Hydrobromide) 40 Mg Tab, 40 MG PO DAILY for 30 Days, MG 09/25/20 Information Source: Patient Mode of Arrival: Ambulatory Severity: Moderate Timing: Hours Duration: Intermittent Prehospital treatment: None Location: Substernal Radiation: No Radiation Quality: Heavy Onset: At Rest Cardiac Risk Factors: Other (A-FIB) PE Risk Factors: None History of: Similar pain in past Past Medical History PAST MEDICAL HISTORY: AFIB, Anxiety, Depression Surgical History: Denies all surgeries SHOVEL MECHANIC History: No Pertinent SHOVEL MECHANIC History Family History Family History: Reviewed,noncontributory to illness, Family hx of HTN Social History Smoker: Cigarettes, Less Than 1 Pack/Day Alcohol: Rarely Drugs: Denies Drug Use Lives In: Home Constitutional: denies: chills, diaphoresis, fatigue, fever, malaise, sweats, weakness, others EENTM: denies: blurred vision, double vision, ear bleeding, ear discharge, ear drainage, ear pain, ear ringing, eye pain, eye redness, hearing loss, mouth pain, mouth swelling, nasal discharge, nose bleeding, nose congestion, nose pain, photophobia, tearing, throat pain, throat swelling, voice changes, others Respiratory: denies: cough, hemoptysis, orthopnea, SOB at rest, shortness of breath, SOB with excertion, stridor, wheezing, others Cardiovascular: reports: chest pain, palpitations; denies: dizzy spells, diaphoresis, Dyspnea on exertion, edema, irregular heart beat, left arm pain, lightheadedness, PND, syncope, others Gastrointestinal: denies: abdomen distended, abdominal pain, blood streaked bowels, constipated, diarrhea, dysphagia, difficulty swallowing, hematemesis, melena, nausea, poor appetite, poor fluid intake, rectal bleeding, rectal pain, vomiting, others Genitourinary: denies: abnormal vagina bleeding, burning, dyspareunia, dysuria, flank pain, frequency, hematuria, incontinence, pain, , vagina discharge, urgency, others Neurological: denies: dizziness, fainting, headache, left sided numbness, left sided weakness, numbness, paresthesia, pre-existing deficit, right sided numbness, right sided weakness, seizure, speech problems, tingling, tremors, weakness, others Musculoskeletal: denies: back pain, gout, joint pain, joint swelling, muscle pain, muscle stiffness, neck pain, others Integumetry: denies: bruises, change in color, change in hair/nails, dryness, laceration, lesions, lumps, rash, wounds, others Allergic/Immunocompromised: denies: Difficulty Healing, Frequent Infections, Hives, Itching, others Hematologic/Lymphatic: denies: anemia, blood clots, easy bleeding, easy bruising, swollen glands, others Endocrine: denies: excessive hunger, excessive sweating, excessive thirst, excessive urination, flushing, intolerance to cold, intolerance to heat, unexplained weight gain, unexplained weight loss, others Psychiatric: denies: anxiety, bipolar disorder, depression, hopeless, panic disorder, schizophrenia, sleepless, suicidal, others All Other Systems: Reviewed and Negative Physical Exam General Appearance: Moderate Distress, Normal HEENT: Normal ENT Inspection, Pharynx Normal, TMs Normal Neck: Full Range of Motion, Non-Tender, Normal, Normal Inspection Respiratory: Chest Non-Tender, Lungs Clear, No Accessory Muscle Use, No Respiratory Distress, Normal Breath Sounds Cardiovascular: No Edema, No JVD, No Murmur, No Gallop, Normal Peripheral Pulses, Tachycardia Breast Exam: Deferred Gastrointestinal: No Organomegaly, Non Tender, No Pulsatile Mass, Normal Bowel Sounds, Soft Genitalia: Deferred Pelvic: Deferred Rectal: Deferred Extremities: No calf tenderness, Normal capillary refill, Normal inspection, Normal range of motion, Non-tender, No pedal edema Musculoskeletal : Apperance: Normal Neurologic: Alert, No Motor Deficits, Normal Affect, Normal Mood, No Sensory Deficits Cerebellar Function: Normal Reflexes: Normal Skin: Dry, Normal Color, Warm Lymphatic: No Adenopathy EKG EKG : Pulse Rate (adult): 149 [place]: Normal Cardiac Rhythm: ST Block: RBBB Hypertrophy: None ST: Normal Comments DIFFUSE INVERTED T WAVES in INFERIOR LEADS 1752 - NSR with rate of 54. Was a procedure done? Was a procedure done?: No CP Differential Dx Differential Diagnosis: A-fib, Electrolyte Disorder, Hyperthyroidism, PSVT, Sinus Tachycardia X-Ray, Labs, Meds, VS Vital Signs Date Time Temp Pulse Resp B/P (MAP) Pulse Ox O2 Delivery O2 Flow Rate FiO2 05/18/24 17:48 54 05/18/24 16:45 109 20 103/68 (80) 89 05/18/24 16:38 135 05/18/24 16:38 117/78 05/18/24 16:30 144 21 104/77 (86) 91 05/18/24 16:15 148 21 106/69 (81) 94 05/18/24 16:15 106/69 05/18/24 16:00 148 22 119/80 (93) 91 05/18/24 16:00 148 05/18/24 15:45 109/79 05/18/24 15:45 144 24 109/79 (89) 92 05/18/24 15:30 140 16 106/85 (92) 92 05/18/24 15:29 139 15 92 Room Air* 0 21 05/18/24 15:15 107/72 05/18/24 13:30 98.2 145 15 126/76 (93) 92 98.2 05/18/24 13:23 147 05/18/24 12:57 149 05/18/24 12:27 98.1 147 18 143/89 (107) 96 05/18/24 12:24 149 Lab Test 05/18/24 16:20 05/18/24 14:19 05/18/24 13:20 Range/Units Troponin I High Sensitivity 4 3 L 4 </=34 ng/L White Blood Count 8.9 4.4-10.8 10^3/uL Red Blood Count 5.04 4.0-5.20 10^6/uL Hemoglobin 16.1 12.2-16.2 g/dL Hematocrit 47.0 H 36.0-46.0 % Mean Corpuscular Volume 93.2 80.0-100.0 fL Mean Corpuscular Hemoglobin 32.0 28.0-32.0 pg Mean Corpuscular Hemoglobin Concent 34.3 32.0-36.0 g/dL Red Cell Distribution Width 14.6 H 11.8-14.3 % Platelet Count 230 140-450 10^3/uL Mean Platelet Volume 8.1 6.9-10.8 fL Neutrophils (%) (Auto) 58.9 37.0-80.0 % Lymphocytes (%) (Auto) 30.3 10.0-50.0 % Monocytes (%) (Auto) 8.2 0.0-12.0 % Eosinophils (%) (Auto) 1.5 0.0-7.0 % Basophils (%) (Auto) 1.1 0.0-2.0 % Neutrophils # (Auto) 5.2 1.6-8.6 10 ^3/uL Lymphocytes # (Auto) 2.7 0.4-5.4 10 ^3/uL Monocytes # (Auto) 0.7 0-1.3 10 ^3/uL Eosinophils # (Auto) 0.1 0-0.8 10 ^3/uL Basophils # (Auto) 0.1 0-0.2 10 ^3/uL Nucleated Red Blood Cells 0.1 % Sodium Level 140 136-145 mmol/L Potassium Level 4.5 3.5-5.1 mmol/L Chloride Level 110 H 98-107 mmol/L Carbon Dioxide Level 25 20-31 mmol/L Anion Gap 5 5-15 Blood Urea Nitrogen 17 9-23 mg/dL Creatinine 0.62 0.550-1.02 mg/dL Glomerular Filtration Rate Calc 101 >90 mL/min BUN/Creatinine Ratio 27.4 H 10.0-20.0 Serum Glucose 80 74-106 mg/dL Calcium Level 8.9 8.7-10.4 mg/dL Magnesium Level 1.7 1.6-2.6 mg/dL Total Bilirubin 0.3 0.2-1.0 mg/dL Aspartate Amino Transferase (AST) 53 H 13-40 U/L Alanine Aminotransferase (ALT) 58 H 7-40 U/L Alkaline Phosphatase 79 46-116 U/L Total Protein 6.5 5.7-8.2 g/dL Albumin 3.9 3.2-4.8 g/dL Current Medications Medications (Trade) Dose Ordered Sig/Zaheer Route Start Time Stop Time Status Last Admin Diltiazem HCl (Cardizem Injection) 15 mg ONCE ONCE IV 05/18/24 13:00 05/18/24 13:01 DC 05/18/24 13:26 Diltiazem HCl 100 ml @ 5 mls/hr Q20H IV 05/18/24 15:00 05/18/24 15:15 Digoxin (Lanoxin Injection) 250 mcg ONCE ONCE IV 05/18/24 16:30 05/18/24 16:33 DC 05/18/24 16:38 Magnesium Sulfate/ Dextrose 100 ml @ 100 mls/hr ONCE ONCE IV 05/18/24 16:30 05/18/24 17:29 DC 05/18/24 16:38 63-year-old female presents with acute arrhythmia. I immediately saw the patient upon her arrival as her heart rate was in the 140s. Unclear if this was SVT versus atrial fibrillation. I reviewed her past records and it seems that she has been diagnosed with both atrial fibrillation and SVT. She has often required cardioversion as she is unresponsive to many medications. Last time she was given adenosine with no response. At this time I have given the patient diltiazem IV which improved for a few minutes and again her heart rate increased back to the 140s. Patient was then started on diltiazem drip. She continued to remain tachycardic despite the diltiazem drip. Maintenance Porter was consulted. Blood work has demonstrated no significant abnormality. This time hospitalist team has been contacted for admission. Time of 1ST Reevaluation: 13:15 Reevaluation 1ST: Unchanged Patient Education/Counseling: Diagnosis, Treatment, Prognosis Family Education/Counseling: Diagnosis, Treatment, Prognosis Departure 1 Departure Time of Disposition: 13:14 Impression: Primary Impression: Atrial fibrillation with rapid ventricular response Disposition: ADMITTED INPATIENT Admit to: [facility] Condition: Critical Critical Care Note Critical Care Time?: Yes (55 min-critical care time only) Critical care comment: Patient was seen immediately by myself concern for immediate deterioration. Patient heart rate sustained in the 140s. Time spent evaluating patient, treating with medications, multiple re-evaluations, ordering lab tests, discussing case with patient and specialist. Stability Stability form required: No Heart Score Heart Score: Heart Score Response (Comments) Value History Slightly Suspicious 0 EKG Repolarization Disturb 1 Age 45-64 1 Risk Factors 1 or 2 risk factors 1 Troponin Normal limit 0 Total 3 I personally scribed for EDIS RAMIREZ MD ([email or web address]) on 05/18/24 at 12:57. Electronically submitted by Terry Child ([email or web address]). I personally scribed for EDIS RAMIREZ MD ([email or web address]) on 05/18/24 at 14:41. Electronically submitted by Terry Child ([email or web address]). I personally scribed for EDIS RAMIREZ MD ([email or web address]) on 05/18/24 at 17:54. Electronically submitted by Terry Child ([email or web address]). EDIS RAMIREZ MD May 18, 2024 12:57
[2024-05-18] MEDS: dilTIAZem 25 MG/5 ML VIAL IV ONE ×2 (13:26→13:35)
[2024-05-18 13:40] LABS: Basophils # (auto) 0.1 10 ^3/uL (0-0.2); Basophils % (auto) 1.1 % (0.0-2.0); Eosinophils # (auto) 0.1 10 ^3/uL (0-0.8); Eosinophils % (auto) 1.5 % (0.0-7.0); Hemoglobin 16.1 g/dL (12.2-16.2); Lymphocytes # (auto) 2.7 10 ^3/uL (0.4-5.4); Lymphocytes % (auto) 30.3 % (10.0-50.0); Mean Corpuscular Hgb Conc. 34.3 g/dL (32.0-36.0); Mean Corpuscular Volume 93.2 fL (80.0-100.0); Monocytes # (auto) 0.7 10 ^3/uL (0-1.3); Monocytes % (auto) 8.2 % (0.0-12.0); Neutrophils # (auto) 5.2 10 ^3/uL (1.6-8.6); Neutrophils % (auto) 58.9 % (37.0-80.0); Nucleated Red Blood Cells % 0.1 %; Platelet Count (auto) 230 10^3/uL (140-450); Red Blood Cells 5.04 10^6/uL (4.0-5.20); Red Cell Distribution Width 14.6 % (11.8-14.3); White Blood Cell 8.9 10^3/uL (4.4-10.8)
[2024-05-18 13:57] LABS: Albumin 3.9 g/dL (3.2-4.8); Alkaline Phosphatase 79 U/L (46-116); Anion Gap 5 (5-15); BUN/Creatinine Ratio 27.4 (10.0-20.0); Blood Urea Nitrogen 17 mg/dL (9-23); Calcium 8.9 mg/dL (8.7-10.4); Carbon Dioxide 25 mmol/L (20-31); Glucose 80 mg/dL (74-106); Magnesium 1.7 mg/dL (1.6-2.6); Potassium 4.5 mmol/L (3.5-5.1); Sodium 140 mmol/L (136-145); Total Protein 6.5 g/dL (5.7-8.2)
[2024-05-18 14:06] LABS: Alanine Aminotransferase 58 U/L (7-40); Aspartate Aminotransferase 53 U/L (13-40); Bilirubin, Total 0.3 mg/dL (0.2-1.0); Chloride 110 mmol/L (98-107)
[2024-05-18] MEDS ORDERED: TETANUS-DIPTH-ACEL PERTUSSIS 0.5ML SYR Tdap IM ONE (15:00)
[2024-05-18] MEDS: dilTIAZem 125mg/125ml BAG KIT 100 ML IV SCH (15:15)
[2024-05-18 15:29] VITALS: PULSE 139; RESP 15; O2SAT 92
[2024-05-18] MEDS: DIGOXIN (250MCG/ML) 2 ML AMPULE IV ONE (16:38)
[2024-05-18] MEDS: MAGNESIUM SULFATE 1GM/100ML 100 ML IV ONE (16:38)
[2024-05-18] MEDS ORDERED: METOPROLOL TARTRATE 1MG/1ML-5ML VIAL IV PRN (18:15)
--- NOTE | 2024-05-18 18:25 | DVHINCON2 ---
Date Seen: May 18, 2024 Referring Physician MD Quinton Reason for Consultation Sustained tachycardia History of Present Illness This is a 63-year-old female patient who presents to the emergency room with chief complaint of palpitations. The patient reports that the palpitations initially began yesterday afternoon. The patient has a known history of atrial fibrillation and reports that normally she is able to control her heart rate at home with her prescribed medications. She comes to the emergency room today after being unable to control her heart rate despite medication administration. Cardiology has been consulted STAT to bedside for uncontrolled heart rate. Initial twelve lead electrocardiogram reveals atrial flutter with heart rate 149 bpm (EKG machine rate sinus tachycardia). Significant past medical history includes atrial fibrillation (on Eliquis), hepatitis-C, right renal mass, depression, tobacco use and obesity. The patient was recently seen at this facility on 04/15/24 in which she underwent a direct current cardioversion at that time. The patient states that she sees back tender fourdrinier Dr. Sauceda in the outpatient setting and has also been following an wader boot top assembler. The patient has a scheduled appointment with electrophysiology for May 28, 2024 to began the process for cardiac ablation. Past Medical History Past medical history reviewed. No other significant than mentioned above. Past Surgical History Denies Family History: Alcoholism G8 FATHER Diabetes mellitus G8 MOTHER G8 FATHER FH: CHF (congestive heart failure) G8 FATHER Hypertension G8 FATHER Family History Family history reviewed. Social History Patient has a 20 pack-year history, smokes approximately half a pack per day Patient denies any illicit drug use Patient denies any alcohol use Allergies: Coded Allergies: NO KNOWN ALLERGIES (Unverified , 03/26/13) Home Meds Active Scripts Hydrocodone-Acetaminophen (Hydrocodone Bitartrate/AC 5-325 mg) 1 Tab Tab, 1 TAB PO Q6HP PRN, #20 TAB Prov:FRANSISCA BROWNE MD 12/01/23 Amiodarone Hcl (Amiodarone Hcl) 200 Mg Tab, 200 MG PO BID for 30 Days, #60 TAB Prov:FRANSISCA BROWNE MD 12/01/23 Meloxicam (Meloxicam) 7.5 Mg Tab, 1 TAB PO DAILYP PRN for 30 Days, #30 TAB 0 Refills Prov:MARIZOL FREEMAN NP 09/13/23 Cyclobenzaprine Hcl (Cyclobenzaprine Hcl) 5 Mg Tab, 1 TAB PO QHSP PRN for 30 Days, #30 TAB 0 Refills Prov:MARIZOL FREEMAN NP 09/13/23 Apixaban Base (ELIQUIS) 5 Mg Tab, 5 MG PO BID for 90 Days, #180 TAB Prov:SULMA DIGGS MD 09/26/20 Reported Medications Metoprolol Tartrate (Metoprolol Tartrate) 25 Mg Tab, 1 TAB PO DAILY for 90 Days, #90 11/30/23 Gabapentin (Gabapentin) 100 Mg Cap, 1 CAP PO TID for 90 Days, #180 11/30/23 Citalopram Hydrobromide (Citalopram Hydrobromide) 40 Mg Tab, 40 MG PO DAILY for 30 Days, MG 09/25/20 Home Meds Home medications reviewed. Current Medications Current Medications Medications (Trade) Dose Ordered Sig/Zaheer Route PRN Reason Start Time Stop Time Status Last Admin Diltiazem HCl 100 ml @ 5 mls/hr Q20H IV 05/18/24 15:00 05/18/24 15:15 Review of Systems Constitutional: No symptom reported Ears, Nose, & Throat: No symptom reported Eyes: No symptom reported Neurological: No symptoms reported Pulmonary/Respiratory: No symptoms reported Cardiovascular: Palpitations Gastrointestinal: No symptom reported Genitourinary: No symptom reported Musculoskeletal: No symptom reported Skin: No symptom reported Psychiatric: No symptom reported Endocrine: No symptom reported Hematologic/Lymphatic: No symptom reported Vital Signs Vital Signs Date Time Temp Pulse Resp B/P (MAP) Pulse Ox O2 Delivery O2 Flow Rate FiO2 05/18/24 17:48 54 05/18/24 16:45 20 103/68 (80) 89 05/18/24 15:29 Room Air* 0 21 05/18/24 13:30 98.2 98.2 Physical Exam General Appearance: Cooperative. Obese Pulmonary/Respiratory: Clear, bilateral breaths sounds. Cardiovascular/Chest: Irregular rate and rhythm. Peripheral Pulses: 2+ Radial (R). 2+ Radial (L). 2+ Pedal (R). 2+ Pedal (L) Abdominal Exam: Normal bowel sounds. Ankle Exam: Negative ankle edema Lower extremities: Negative lower extremity edema Neuro/Mental Status: A/OX4, coherent. Thoughts/Psych: Normal thought pattern. Appropriate mood and affect. Good judgment and insight. Appearance: No acute distress. Skin Exam: Normal inspection. Normal color. Warm and dry. Labs/Diagnostic Data Labs Test 05/18/24 16:20 05/18/24 13:20 Range/Units Troponin I High Sensitivity 4 </=34 ng/L White Blood Count 8.9 4.4-10.8 10^3/uL Red Blood Count 5.04 4.0-5.20 10^6/uL Hemoglobin 16.1 12.2-16.2 g/dL Hematocrit 47.0 H 36.0-46.0 % Mean Corpuscular Volume 93.2 80.0-100.0 fL Mean Corpuscular Hemoglobin 32.0 28.0-32.0 pg Mean Corpuscular Hemoglobin Concent 34.3 32.0-36.0 g/dL Red Cell Distribution Width 14.6 H 11.8-14.3 % Platelet Count 230 140-450 10^3/uL Mean Platelet Volume 8.1 6.9-10.8 fL Neutrophils (%) (Auto) 58.9 37.0-80.0 % Lymphocytes (%) (Auto) 30.3 10.0-50.0 % Monocytes (%) (Auto) 8.2 0.0-12.0 % Eosinophils (%) (Auto) 1.5 0.0-7.0 % Basophils (%) (Auto) 1.1 0.0-2.0 % Neutrophils # (Auto) 5.2 1.6-8.6 10 ^3/uL Lymphocytes # (Auto) 2.7 0.4-5.4 10 ^3/uL Monocytes # (Auto) 0.7 0-1.3 10 ^3/uL Eosinophils # (Auto) 0.1 0-0.8 10 ^3/uL Basophils # (Auto) 0.1 0-0.2 10 ^3/uL Nucleated Red Blood Cells 0.1 % Sodium Level 140 136-145 mmol/L Potassium Level 4.5 3.5-5.1 mmol/L Chloride Level 110 H 98-107 mmol/L Carbon Dioxide Level 25 20-31 mmol/L Anion Gap 5 5-15 Blood Urea Nitrogen 17 9-23 mg/dL Creatinine 0.62 0.550-1.02 mg/dL Glomerular Filtration Rate Calc 101 >90 mL/min BUN/Creatinine Ratio 27.4 H 10.0-20.0 Serum Glucose 80 74-106 mg/dL Calcium Level 8.9 8.7-10.4 mg/dL Magnesium Level 1.7 1.6-2.6 mg/dL Total Bilirubin 0.3 0.2-1.0 mg/dL Aspartate Amino Transferase (AST) 53 H 13-40 U/L Alanine Aminotransferase (ALT) 58 H 7-40 U/L Alkaline Phosphatase 79 46-116 U/L Total Protein 6.5 5.7-8.2 g/dL Albumin 3.9 3.2-4.8 g/dL Assessment Atrial flutter with rapid ventricular response History of atrial fibrillation (on Eliquis therapy) Chronic HFrEF, NYHA class III Tobacco use Obesity Plan/Recommendation We will continue with the following plan/recommendations (Dr. Mullins): * Echocardiogram to evaluate cardiac function * Previous echocardiogram from 11/27/2023 reveals EF 40% * [id number] VASc score: 2 points, HAS-BLED score: 1 point * Restart NOAC, Eliquis * Continue Cardizem gtt * Cardiac surveillance * Monitor and replete electrolytes as needed, keep potassium greater than 4 and magnesium greater than 2 * Labs: TSH, obtain UDS Patient seen and examined at bedside with . We will keep the patient on the Cardizem drip in the meantime. We will also initiate loading dose of digoxin for further rate control. Thank you for allowing us to care for this patient. Please call with any questions or concerns. Critical care time spent: 42 minutes This medical document was created using an electronic medical record system with voice recognition software and computerized dictation system. Although this document has been carefully reviewed, there might still be some phonetic and typographical errors. Occasional wrong-word or ``sound-alike substitutions may have occurred due to the inherent limitations of voice recognition software. These areas are purely typographical due to imperfections of the software programs and do not reflect any compromise in the patient's medical care. Please read the chart carefully and recognize, using context, where these substitutions have occurred.ec Plan discussed with: Patient NYHA Physical activity limitations: Class3(Marked) ordinary (activity causes symtoms) Date of Service: May 18, 2024 Billing Provider: MARLENA MULLINS MD Cardiology Common Codes: 91725-ZHGKRFN INP/OBS CARE (High) Cardiology Consultation Codes: 43264-[id number] CONSULT <45MIN NORMAN LANDEROSP May 18, 2024 18:25
[2024-05-18 19:41] VITALS: PULSE 66; RESP 15; O2SAT 93
[2024-05-18] MEDS ORDERED: ONDANSETRON HCL 4 MG/2 ML VIAL IV PRN (20:15)
[2024-05-18] MEDS ORDERED: DOCUSATE SOD 100 MG CAP PO PRN (20:15)
[2024-05-18] MEDS ORDERED: ACETAMINOPHEN 325 MG TAB PO PRN (20:15)
[2024-05-18] MEDS ORDERED: MORPHINE SULFATE INJ 2 MG/ml SYRG IV PRN (21:45)
[2024-05-18] MEDS ORDERED: NITROGLYCERIN 0.4 MG SL TAB SL PRN (21:45)
--- NOTE | 2024-05-18 21:45 | DVHHP2 ---
History of Present Illness Reason for Visit: Palpitations History of Present Illness The patient is a 63-year-old female with past medical history of AFib, anxiety, and depression who presented to [facility] ED for evaluation of palpitations. Patient reports symptoms progressively get worse with substernal chest pain, nonradiating, described as heaviness, mild headache, getting worse that prompted this visit. 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 Patient was seen and evaluated in the ED, laboratory data shows WBC 8.9, platelets 230, sodium 140, potassium 4.5, BUN 17, creatinine 0.62, GFR 101, glucose 80, AST 53, ALT 58, troponin 4, blood pressure 125/74, heart rate 149 trending down to 81, temperature 98.2 F, O2 saturation 93% on oxygen. Patient was given IV Cardizem, please see medication orders section in the computer. On my assessment, patient denies chest pain, no headache, no dizziness, no diaphoresis, no shortness of breath, no nausea, no vomiting, no fever, no chills. Patient was admitted for further evaluation and medical management. Past Medical History AFIB, Anxiety, Depression Past Surgical History Denies all surgeries Family History Reviewed, noncontributory to the management of this case. Past Social History The patient lives at home, smokes cigarettes less than 1 pack per day, denies alcohol or illicit drugs abuse. Review of Systems Constitutional: No: Fever, Chills, Sweats, Weakness, Malaise, Other Eyes: No: Pain, Vision change, Conjunctivae inflammation, Eyelid inflammation, Other, Redness ENT: No: Ear pain, Ear discharge, Nose pain, Nose discharge, Nose congestion, Mouth pain, Mouth swelling, Throat pain, Throat swelling, Other Respiratory: No: Cough, Dry, Shortness of breath, SOB with excertion, Wheezing, Hemoptysis, Pleuritic Pain, Sputum, Wheezing, Other Cardiovascular: Chest Pain, Palpitations; No: Orthopnea, Paroxysmal Noc. Dyspnea, Edema, Lt Headedness, Other Gastrointestinal: No: Nausea, Vomiting, Abdominal Pain, Diarrhea, Constipation, Melena, Hematochezia, Other Genitourinary: No Dysuria, No Frequency, No Incontinence, No Hematuria, No Retention, No Other Musculoskeletal: No: other, neck pain, shoulder pain, arm pain, back pain, hand pain, leg pain, foot pain Skin: No: Rash, Lesions, Jaundice, Bruising, Other Neurological: No: Weakness, Numbness, Incoordination, Change in speech, Confusion, Seizures, Other Allergies: Coded Allergies: NO KNOWN ALLERGIES (Unverified , 03/26/13) Medications Current Medications Medications Dose Ordered Sig/Zaheer Route Start Time Stop Time Status Last Admin Dose Admin Apixaban 5 mg BID PO 05/18/24 22:00 Metoprolol Tartrate 2.5 mg Q6HPRN PRN IV 05/18/24 18:15 Amiodarone HCl 200 mg Q12HR PO 05/18/24 22:00 UNV Metoprolol Tartrate 25 mg BID PO 05/18/24 22:00 UNV Sodium Chloride 10 ml Q8HR IV 05/18/24 22:00 UNV Acetaminophen/ Hydrocodone Bitart 1 tab Q4HP PRN PO 05/18/24 20:15 UNV Ondansetron HCl 4 mg Q4HP PRN IV 05/18/24 20:15 UNV Docusate Sodium 100 mg BIDPRN PRN PO 05/18/24 20:15 UNV Acetaminophen 650 mg Q6HP PRN PO 05/18/24 20:15 UNV Exam Vital Signs Vital Signs Date Time Temp Pulse Resp B/P (MAP) Pulse Ox O2 Delivery O2 Flow Rate FiO2 05/18/24 19:00 53 20 125/74 (91) 92 05/18/24 18:00 98.4 98.4 05/18/24 15:29 Room Air* 0 21 General Appearance: Alert, Oriented X3, Cooperative, No acute distress HEENT: Atraumatic, PERRLA, EOMI, Mucous membr. moist/pink Respiratory: Clear to auscultation, Normal air movement Cardiovascular: Normal S1, Normal S2, No murmurs, Other (Irregular rate and rhythm) Abdominal: Normal bowel sounds, Soft, No tenderness, No hepatospenomegaly, No masses Extremities: No clubbing, No cyanosis, No edema, Normal pulses, No tenderness/swelling Skin: No rashes, No breakdown, No significant lesion Neuro: Normal speech, Normal tone, Sensation intact, Cranial nerves 3-12 NL, Reflexes 2+ Psych/Mental Status: Mental status NL, Mood NL Labs/Xrays Labs Test 1/24/25 16:20 05/18/24 13:20 Range/Units Troponin I High Sensitivity 4 </=34 ng/L White Blood Count 8.9 4.4-10.8 10^3/uL Red Blood Count 5.04 4.0-5.20 10^6/uL Hemoglobin 16.1 12.2-16.2 g/dL Hematocrit 47.0 H 36.0-46.0 % Mean Corpuscular Volume 93.2 80.0-100.0 fL Mean Corpuscular Hemoglobin 32.0 28.0-32.0 pg Mean Corpuscular Hemoglobin Concent 34.3 32.0-36.0 g/dL Red Cell Distribution Width 14.6 H 11.8-14.3 % Platelet Count 230 140-450 10^3/uL Mean Platelet Volume 8.1 6.9-10.8 fL Neutrophils (%) (Auto) 58.9 37.0-80.0 % Lymphocytes (%) (Auto) 30.3 10.0-50.0 % Monocytes (%) (Auto) 8.2 0.0-12.0 % Eosinophils (%) (Auto) 1.5 0.0-7.0 % Basophils (%) (Auto) 1.1 0.0-2.0 % Neutrophils # (Auto) 5.2 1.6-8.6 10 ^3/uL Lymphocytes # (Auto) 2.7 0.4-5.4 10 ^3/uL Monocytes # (Auto) 0.7 0-1.3 10 ^3/uL Eosinophils # (Auto) 0.1 0-0.8 10 ^3/uL Basophils # (Auto) 0.1 0-0.2 10 ^3/uL Nucleated Red Blood Cells 0.1 % Sodium Level 140 136-145 mmol/L Potassium Level 4.5 3.5-5.1 mmol/L Chloride Level 110 H 98-107 mmol/L Carbon Dioxide Level 25 20-31 mmol/L Anion Gap 5 5-15 Blood Urea Nitrogen 17 9-23 mg/dL Creatinine 0.62 0.550-1.02 mg/dL Glomerular Filtration Rate Calc 101 >90 mL/min BUN/Creatinine Ratio 27.4 H 10.0-20.0 Serum Glucose 80 74-106 mg/dL Calcium Level 8.9 8.7-10.4 mg/dL Magnesium Level 1.7 1.6-2.6 mg/dL Total Bilirubin 0.3 0.2-1.0 mg/dL Aspartate Amino Transferase (AST) 53 H 13-40 U/L Alanine Aminotransferase (ALT) 58 H 7-40 U/L Alkaline Phosphatase 79 46-116 U/L Total Protein 6.5 5.7-8.2 g/dL Albumin 3.9 3.2-4.8 g/dL Assessment/Plan Assessment/Plan Palpitations Acute chest pain Atrial fibrillation with rapid ventricular response Plan 1. Admit to telemetry unit 2. Breathing treatment 3. Pain control management 4. Management of fluids and electrolytes 5. Consultation for cardiology 6. Diagnostic tests chest x-ray 7. DVT prophylaxis-on Eliquis 8. Repeat labs CBC, CMP in a.m. 9. Continue with current medical management 10. Treatment plan discussed with patient and RN. Patient verbalized understanding. Plan discussed with: Patient, Other (RN) My Orders Orders - PABLO HOLMAN DNP Procedure Category Date Status Time Amiodarone Tablet PHA 05/18/24 Logged (Cordarone Tablet) 22:00 Metoprolol Tartrate PHA 05/18/24 Logged Tablet (Lopressor Ta 22:00 Allergies HOANG 05/18/24 In Process 20:12 Code Status CODE 05/18/24 Transmitted 20:12 Sodium Chloride Lock PHA 05/18/24 Logged (Saline Lock Ns) 22:00 Oxygen Per Hour RT 05/18/24 Transmitted 20:12 Hydrocodone-Acet PHA 05/18/24 Logged 5/325mg Tab ([place] 20:15 Ondansetron Hcl PHA 05/18/24 Logged (Zofran) 20:15 Docusate Sodium PHA 05/18/24 Logged Capsule (Colace 20:15 Comprehensive LAB 05/19/24 Verified Metabolic Panel 04:00 Condition: Serious HOANG 05/18/24 In Process 20:12 Acetaminophen Tablet PHA 05/18/24 Logged (Tylenol Tablet) 20:15 Bedrest With Bathroom HOANG 05/18/24 In Process Privileg 20:12 Sequential HOANG 05/18/24 In Process Compression Device Problem List: (1) Palpitations (2) Acute chest pain (3) Atrial fibrillation with rapid ventricular response Date of Service: May 18, 2024 Billing Provider: PABLO HOLMAN DNP Common Visit Codes: [id number] INP/OBS CARE (HIGH) PABLO HOLMAN DNP May 18, 2024 21:45
[2024-05-18] MEDS: HYDROcodone-ACET 5/325MG TAB PO PRN (23:12)
[2024-05-18] MEDS: AMIODARONE HCL 200 MG TAB PO SCH (23:18)
[2024-05-18] MEDS: METOPROLOL TARTRATE 25 MG TAB PO SCH (23:19)
[2024-05-18] MEDS: APIXABAN 5 MG TAB PO SCH (23:19)
[2024-05-19] VITALS (9 sets, daily range): BP systolic 99–125; BP diastolic 42–68; PULSE 52–77; RESP 16–20; TEMP 97.4–98.1; O2SAT 90–98
[2024-05-19] MEDS: SODIUM CHLOR 0.9% PF (SALINE LOCK) 10ML VIAL/SYR IV SCH (00:55)
[2024-05-19] MEDS: MELATONIN 5 MG TAB PO SCH (01:51)
[2024-05-19] MEDS: LORazepam 0.5 MG TAB PO PRN (01:51)
[2024-05-19 03:44] LABS: Amphetamine Screen, Urine Neg (NEGATIVE); Opiate Scree,Urine Neg (NEGATIVE); Phencyclidine Screen, Urine Neg (NEGATIVE)
[2024-05-19 03:46] LABS: Barbiturate Scree,Urine Neg (NEGATIVE); Benzodiazephine Screen, Urine Neg (NEGATIVE); Cannabinoid Screen, Urine Neg (NEGATIVE); Cocaine Screen, Urine Neg (NEGATIVE)
[2024-05-19] MEDS ORDERED: DRON400T (04:55)
[2024-05-19 08:20] LABS: Basophils # (auto) 0.1 10 ^3/uL (0-0.2); Basophils % (auto) 1.5 % (0.0-2.0); Eosinophils # (auto) 0.1 10 ^3/uL (0-0.8); Eosinophils % (auto) 2.1 % (0.0-7.0); Hematocrit 45.6 % (36.0-46.0); Hemoglobin 15.5 g/dL (12.2-16.2); Lymphocytes # (auto) 2.1 10 ^3/uL (0.4-5.4); Lymphocytes % (auto) 31.7 % (10.0-50.0); Mean Corpuscular Hemoglobin 31.6 pg (28.0-32.0); Mean Corpuscular Volume 92.9 fL (80.0-100.0); Monocytes # (auto) 0.6 10 ^3/uL (0-1.3); Monocytes % (auto) 8.9 % (0.0-12.0); Neutrophils # (auto) 3.8 10 ^3/uL (1.6-8.6); Neutrophils % (auto) 55.8 % (37.0-80.0); Nucleated Red Blood Cells % 0.3 %; Platelet Count (auto) 185 10^3/uL (140-450); Red Blood Cells 4.91 10^6/uL (4.0-5.20); Red Cell Distribution Width 14.5 % (11.8-14.3); White Blood Cell 6.8 10^3/uL (4.4-10.8)
[2024-05-19 08:32] LABS: Albumin 3.7 g/dL (3.2-4.8); Alkaline Phosphatase 67 U/L (46-116); Anion Gap 4 (5-15); BUN/Creatinine Ratio 15.4 (10.0-20.0); Blood Urea Nitrogen 12 mg/dL (9-23); Calcium 9.2 mg/dL (8.7-10.4); Carbon Dioxide 28 mmol/L (20-31); Chloride 106 mmol/L (98-107); Glucose 95 mg/dL (74-106); Magnesium 2.1 mg/dL (1.6-2.6); Sodium 138 mmol/L (136-145)
[2024-05-19 08:33] LABS: Bilirubin, Total 0.6 mg/dL (0.2-1.0); Total Protein 6.5 g/dL (5.7-8.2)
[2024-05-19 08:36] LABS: Alanine Aminotransferase 52 U/L (7-40); Aspartate Aminotransferase 54 U/L (13-40); Potassium 5.4 mmol/L (3.5-5.1)
--- NOTE | 2024-05-19 12:01 | DVHSR ---
APPROVED REPORT EXAM: Two-dimensional and M-mode echocardiogram with Doppler and color Doppler. Blood Pressure: 108/42 mmHg INDICATION Evaluate cardiac function RISK FACTORS Obesity: Height: 5'3", Weight: 210 DIMENSIONS LVDd4.5 (3.8-5.7cm)LA (2D)4.2 (1.9-4.0cm)Aortic Root3.3 (2.0-3.7cm) LVDs3.1 (2.5-4.0cm)LA (MM) (1.9-4.0cm)Aortic Cusp Exc1.3 (1.5-2.0cm) EF (%) 60.0 (55-70%)Rt. Atrium3.8 (1.9-4.0cm)Asc. Aorta cm IVSd1.1 (0.7-1.1cm)RV (D)3.6 (1.8-2.4cm) PWd1.0 (0.7-1.1cm) Mitral Valve MitralMitral Stenosis E wave1.02m/sMV Mean GR.2mmHg A wave0.97m/sMV Peak GR.4mmHg E/A ratio1.12D MVAcm2 DECEL [id number] 1/2 [id number] IVRTmsDop MVA1.73cm2 Aortic Valve Aortic ValveAortic Stenosis V11.37m/Rabia Mean GR.7mmHg V21.74m/Rabia Peak GR.12mmHg LVOT Diameter1.8 (1.8-2.4cm)Doppler AVA2.00cm2 Pulmonic Valve V20.99m/s Tricuspid Valve TR Velocity2.71m/s [id number] LEFT VENTRICLE The left ventricle is of normal size. Wall thickness is normal. Ejection fraction is normal and is estimated at 60%. There is no regional wall motion abnormalities. There is grade II diastolic dysfu nction. E to E prime ratio is elevated suggestive of high left-sided filling pressure. RIGHT VENTRICLE The right ventricle is of normal size. Systolic function is normal. ATRIA There is mild biatrial enlargement. Intra-atrial septum is not well visualized. MITRAL VALVE There is mild to moderate mitral annular calcification. No significant mitral regurgitation. No sig nificant mitral stenosis. PULMONIC VALVE Likely normal. TRICUSPID VALVE Normal structure and function. There is mild tricuspid regurgitation. PA systolic pressure is estim ated at 30-35 mm Hg. AORTIC VALVE Trileaflet in morphology. Leaflets are sclerotic. No significant stenosis or regurgitation. GREAT VESSELS The aortic root is of normal size. Proximal ascending aorta isn't visualized. PERICARDIAL EFFUSION No significant pericardial effusion. IVC is of normal size and collapses normally with inspiration. Other Information Technically limited study due to body habitus. Conclusion Normal left ventricular size and systolic function. Ejection fraction is estimated at 60%. Normal right ventricular size and systolic function. Grade II diastolic dysfunction with evidence of elevated left-sided filling pressure. No hemodynamically significant valvular disease. Mild to moderate mitral annular calcification and aortic valve sclerosis. PA systolic pressure is estimated at 30-35 mm Hg.
--- NOTE | 2024-05-19 14:29 | DVHPN2 ---
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 vital signs Vital Sign Date Time Temp Pulse Resp B/P (MAP) Pulse Ox O2 Delivery O2 Flow Rate FiO2 05/19/24 10:00 52 108/55 05/19/24 08:41 97.8 16 92 97.8 05/19/24 08:30 Nasal Cannula* 2 28 Total Intake and Output 05/18/24 05/18/24 05/19/24 15:00 23:00 07:00 Intake Total 100 ml 0 ml Balance 100 ml 0 ml medications Current Medications Medications Dose Ordered Sig/Zaheer Route Start Time Stop Time Status Last Admin Dose Admin Apixaban 5 mg BID PO 05/18/24 22:00 05/19/24 11:35 5 MG Metoprolol Tartrate 2.5 mg Q6HPRN PRN IV 05/18/24 18:15 Amiodarone HCl 200 mg Q12HR PO 05/18/24 22:00 05/18/24 23:18 200 MG Metoprolol Tartrate 25 mg BID PO 05/18/24 22:00 05/18/24 23:19 25 MG Sodium Chloride 10 ml Q8HR IV 05/18/24 22:00 05/19/24 13:52 10 ML Acetaminophen/ Hydrocodone Bitart 1 tab Q4HP PRN PO 05/18/24 20:15 05/18/24 23:12 1 TAB Ondansetron HCl 4 mg Q4HP PRN IV 05/18/24 20:15 Docusate Sodium 100 mg BIDPRN PRN PO 05/18/24 20:15 Acetaminophen 650 mg Q6HP PRN PO 05/18/24 20:15 Nitroglycerin 0.4 mg Q5MINP PRN SL 05/18/24 21:45 Morphine Sulfate 2 mg Q30M PRN IV 05/18/24 21:45 Melatonin 5 mg HS PO 05/19/24 01:15 05/19/24 01:51 5 MG Lorazepam 1 mg Q8HP PRN PO 05/19/24 01:15 05/19/24 11:38 1 MG Examination: GENERAL:Normal, LUNGS:Normal, CVS:Normal, NEURO:Normal laboratory and microbiology Laboratory Tests 05/19/24 07:53 Test 05/19/24 07:53 Range/Units Serum Glucose 95 74-106 mg/dL Problem List/Assessment/Plan Problem List/Assessment/Plan Atrial flutter with rapid ventricular response, now normal sinus rhythm History of atrial fibrillation (on Eliquis therapy) Chronic HFpEF, NYHA class III Tobacco use Obesity Plan/Recommendation (Dr. Mullins): * Echocardiogram reveals EF 60%, RVSP 30-35mmHg * [id number] VASc score: 2 points, HAS-BLED score: 1 point * Continue NOAC therapy with Eliquis * Beta-debbie for rate control * Consider home dose Multaq therapy * Cardiac surveillance * Monitor and replete electrolytes as needed, keep potassium greater than 4 and magnesium greater than 2 Patient seen and examined at bedside with . Patient has converted back into a normal sinus rhythm. We will recommend for the patient to continue with her Eliquis therapy and beta-debbie for rate control. Patient should also restart her home dose Multaq. There is no further inpatient cardiac workup indicated at this time. 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 Thank you for allowing us to care for this patient. Please call with any questions or concerns. This medical document was created using an electronic medical record system with voice recognition software and computerized dictation system. Although this document has been carefully reviewed, there might still be some phonetic and typographical errors. Occasional wrong-word or ``sound-alike substitutions may have occurred due to the inherent limitations of voice recognition software. These areas are purely typographical due to imperfections of the software programs and do not reflect any compromise in the patient's medical care. Please read the chart carefully and recognize, using context, where these substitutions have occurred.ec Plan discussed with: Patient Date of Service: May 19, 2024 Billing Provider: MARLENA MULLINS MD Common Visit Codes: [id number] INP/OBS CARE(HIGH) NORMAN LANDEROS REDEVELOPMENT MANAGER May 19, 2024 14:29
[2024-05-19] MEDS: SODIUM ZIRCONIUM CYCL 10 GM PAK PO ONE (15:26)
--- NOTE | 2024-05-19 22:51 | DVHPN2 ---
Subjective The patient is seen and examined at bedside. Still complain of heart palpitation. Reviewed: Care Plan, H&P, Labs, Medications, Previous Orders, Radiology Changes from previous H/P or p: No Changes Eyes: No Pain, No Vision change, No Conjunctivae inflammation, No Eyelid inflammation, No Other, No Redness ENT: No Ear pain, No Ear discharge, No Nose pain, No Nose discharge, No Nose congestion, No Mouth pain, No Mouth swelling, No Throat pain, No Throat swelling, No Other Cardiovascular: Chest Pain, Palpitations; No Orthopnea, No Paroxysmal Noc. Dyspnea, No Edema, No Lt Headedness, No Other Respiratory: No Cough, No Dry, No Shortness of breath, No SOB with excertion, No Wheezing, No Hemoptysis, No Pleuritic Pain, No Sputum, No Other Gastrointestinal: No Nausea, No Vomiting, No Abdominal Pain, No Diarrhea, No Constipation, No Melena, No Hematochezia, No Other Genitourinary: No Dysuria, No Frequency, No Incontinence, No Hematuria, No Retention, No Other Musculoskeletal: No other, No neck pain, No shoulder pain, No arm pain, No back pain, No hand pain, No leg pain, No foot pain Skin: No Rash, No Lesions, No Jaundice, No Bruising, No Other Objective Vitals Vital Signs Date Time Temp Pulse Resp B/P (MAP) Pulse Ox O2 Delivery O2 Flow Rate FiO2 05/19/24 21:28 70 108/68 05/19/24 21:00 98.0 18 97 98.0 05/19/24 08:30 Nasal Cannula* 2 28 Intake/Output Intake and Output 05/19/24 07:00 Intake Total 100 ml Balance 100 ml Intake Oral 0 ml IV Total 100 ml # Voids 1 General Appearance: Alert, Oriented X3, Cooperative, No acute distress HEENT: Atraumatic, PERRLA, Mucous membr. moist/pink Neck: Supple Lungs: Clear to auscultation, Normal air movement Cardiovascular: Regular rate, Normal S1, Normal S2, No murmurs, Gallops, Rubs Abdomen: Normal bowel sounds, Soft, No tenderness Neuro: Cranial nerves 3-12 NL Psych/Mental Status: Mental status NL Medications Current Medications Medications Dose Ordered Sig/Zaheer Route Start Time Stop Time Status Last Admin Dose Admin Apixaban 5 mg BID PO 05/18/24 22:00 05/19/24 21:27 5 MG Metoprolol Tartrate 2.5 mg Q6HPRN PRN IV 05/18/24 18:15 Amiodarone HCl 200 mg Q12HR PO 05/18/24 22:00 05/19/24 21:27 200 MG Metoprolol Tartrate 25 mg BID PO 05/18/24 22:00 05/18/24 23:19 25 MG Sodium Chloride 10 ml Q8HR IV 05/18/24 22:00 05/19/24 21:28 10 ML Acetaminophen/ Hydrocodone Bitart 1 tab Q4HP PRN PO 05/18/24 20:15 05/18/24 23:12 1 TAB Ondansetron HCl 4 mg Q4HP PRN IV 05/18/24 20:15 Docusate Sodium 100 mg BIDPRN PRN PO 05/18/24 20:15 Acetaminophen 650 mg Q6HP PRN PO 05/18/24 20:15 Nitroglycerin 0.4 mg Q5MINP PRN SL 05/18/24 21:45 Morphine Sulfate 2 mg Q30M PRN IV 05/18/24 21:45 Melatonin 5 mg HS PO 05/19/24 01:15 05/19/24 21:28 5 MG Lorazepam 1 mg Q8HP PRN PO 05/19/24 01:15 05/19/24 21:32 1 MG Laboratory Results Laboratory Tests 05/19/24 07:53 Chemistry Test 05/19/24 07:53 Albumin 3.7 g/dL (3.2-4.8) Calcium Level 9.2 mg/dL (8.7-10.4) Magnesium Level 2.1 mg/dL (1.6-2.6) Total Protein 6.5 g/dL (5.7-8.2) LFT Test 05/19/24 07:53 Alanine Aminotransferase (ALT) 52 U/L (7-40) H Alkaline Phosphatase 67 U/L (46-116) Aspartate Amino Transferase (AST) 54 U/L (13-40) H Total Bilirubin 0.6 mg/dL (0.2-1.0) HgA1c, TSH Test 05/19/24 07:53 Thyroid Stimulating Hormone (TSH) 2.86 uIU/mL (0.55-4.78) Microbiology Microbiology Date/Time Source Procedure Growth Status 05/19/24 02:36 Nose MRSA Screen - Final Complete Labs and/or images reviewed: Labs reviewed by me Assessment/Plan Assessment/Plan Palpitations Acute chest pain Atrial fibrillation with rapid ventricular response Continuing current management. Waiting for energy sales consultant to see the patient. Continuing with metoprolol and IV Cardizem. We will discontinuing Cardizem today if heart rate less than 100. This medical document was created using an electronic medical record system with [employer] computerized dictation system. Although this document has been carefully reviewed, there may still be some phonetic and typographical errors. These areas are purely typographical due to imperfections of the software programs, and do not reflect any compromise in the patient's medical care. Plan discussed with: Patient Date of Service: May 19, 2024 Billing Provider: AIDEE CUEVAS MD Common Visit Codes: [id number] INP/OBS CARE(HIGH) AIDEE CUEVAS MD May 19, 2024 22:51
[2024-05-20] VITALS (9 sets, daily range): BP systolic 90–116; BP diastolic 40–63; PULSE 59–80; RESP 16–18; TEMP 97.5–98.7; O2SAT 91–97
[2024-05-20] MEDS: SODIUM CHLORIDE 0.9% 500 ML IV ONE (16:11)
--- NOTE | 2024-05-20 19:59 | DVHPN2 ---
Subjective The patient seen and examined at bedside. No complains Reviewed: Care Plan, H&P, Labs, Medications, Previous Orders, Radiology Changes from previous H/P or p: No Changes Eyes: No Pain, No Vision change, No Conjunctivae inflammation, No Eyelid inflammation, No Other, No Redness ENT: No Ear pain, No Ear discharge, No Nose pain, No Nose discharge, No Nose congestion, No Mouth pain, No Mouth swelling, No Throat pain, No Throat swelling, No Other Cardiovascular: Chest Pain, Palpitations; No Orthopnea, No Paroxysmal Noc. Dyspnea, No Edema, No Lt Headedness, No Other Respiratory: No Cough, No Dry, No Shortness of breath, No SOB with excertion, No Wheezing, No Hemoptysis, No Pleuritic Pain, No Sputum, No Other Gastrointestinal: No Nausea, No Vomiting, No Abdominal Pain, No Diarrhea, No Constipation, No Melena, No Hematochezia, No Other Genitourinary: No Dysuria, No Frequency, No Incontinence, No Hematuria, No Retention, No Other Musculoskeletal: No other, No neck pain, No shoulder pain, No arm pain, No back pain, No hand pain, No leg pain, No foot pain Skin: No Rash, No Lesions, No Jaundice, No Bruising, No Other Objective Vitals Vital Signs Date Time Temp Pulse Resp B/P (MAP) Pulse Ox O2 Delivery O2 Flow Rate FiO2 05/20/24 17:00 97.5 64 18 98/40 (59) 96 97.5 05/20/24 08:00 Room Air* 0 21 Intake/Output Intake and Output 05/20/24 07:00 Intake Total 1030 ml Balance 1030 ml Intake Oral 1030 ml # Voids 7 General Appearance: Alert, Oriented X3, Cooperative, No acute distress HEENT: Atraumatic, PERRLA, EOMI, Mucous membr. moist/pink Neck: Supple Lungs: Clear to auscultation, Normal air movement Cardiovascular: Regular rate, Normal S1, Normal S2, No murmurs, Gallops, Rubs Abdomen: Normal bowel sounds, Soft, No tenderness, No hepatospenomegaly Neuro: Cranial nerves 3-12 NL Psych/Mental Status: Mental status NL Medications Current Medications Medications Dose Ordered Sig/Zaheer Route Start Time Stop Time Status Last Admin Dose Admin Apixaban 5 mg BID PO 05/18/24 22:00 05/20/24 09:30 5 MG Metoprolol Tartrate 2.5 mg Q6HPRN PRN IV 05/18/24 18:15 Amiodarone HCl 200 mg Q12HR PO 05/18/24 22:00 05/20/24 09:30 200 MG Metoprolol Tartrate 25 mg BID PO 05/18/24 22:00 05/18/24 23:19 25 MG Sodium Chloride 10 ml Q8HR IV 05/18/24 22:00 05/20/24 14:00 10 ML Acetaminophen/ Hydrocodone Bitart 1 tab Q4HP PRN PO 05/18/24 20:15 05/20/24 17:41 1 TAB Ondansetron HCl 4 mg Q4HP PRN IV 05/18/24 20:15 Docusate Sodium 100 mg BIDPRN PRN PO 05/18/24 20:15 Acetaminophen 650 mg Q6HP PRN PO 05/18/24 20:15 Nitroglycerin 0.4 mg Q5MINP PRN SL 05/18/24 21:45 Morphine Sulfate 2 mg Q30M PRN IV 05/18/24 21:45 Melatonin 5 mg HS PO 05/19/24 01:15 05/19/24 21:28 5 MG Lorazepam 1 mg Q8HP PRN PO 05/19/24 01:15 05/19/24 21:32 1 MG Laboratory Results Laboratory Tests 05/19/24 07:53 Microbiology Microbiology Date/Time Source Procedure Growth Status 05/19/24 02:36 Nose MRSA Screen - Final Complete Labs and/or images reviewed: Labs reviewed by me Assessment/Plan Assessment/Plan Palpitations Acute chest pain Atrial fibrillation with rapid ventricular response Continue current management Continue metoprolol Appreciate Loan Funder input will follow up with echo. This medical document was created using an electronic medical record system with [employer] computerized dictation system. Although this document has been carefully reviewed, there may still be some phonetic and typographical errors. These areas are purely typographical due to imperfections of the software programs, and do not reflect any compromise in the patient's medical care. Plan discussed with: Patient Date of Service: May 20, 2024 Billing Provider: AIDEE CUEVAS MD Common Visit Codes: [id number] INP/OBS CARE(HIGH) AIDEE CUEVAS MD May 20, 2024 19:59
[2024-05-21 01:00] VITALS: BP 97/61; PULSE 69; RESP 20; TEMP 97.9; O2SAT 95
[2024-05-21 05:00] VITALS: BP 115/52; PULSE 64; RESP 20; TEMP 97.6; O2SAT 95
[2024-05-21 06:54] LABS: Calcium 9.5 mg/dL (8.7-10.4); Chloride 106 mmol/L (98-107); Potassium 4.8 mmol/L (3.5-5.1); Sodium 140 mmol/L (136-145)
[2024-05-21 06:55] LABS: Anion Gap 2 (5-15)
[2024-05-21 06:56] LABS: Carbon Dioxide 32 mmol/L (20-31)
[2024-05-21 06:58] LABS: Basophils # (auto) 0.1 10 ^3/uL (0-0.2); Basophils % (auto) 0.7 % (0.0-2.0); Eosinophils # (auto) 0.2 10 ^3/uL (0-0.8); Eosinophils % (auto) 2.2 % (0.0-7.0); Hematocrit 46.8 % (36.0-46.0); Hemoglobin 15.9 g/dL (12.2-16.2); Lymphocytes # (auto) 2.4 10 ^3/uL (0.4-5.4); Lymphocytes % (auto) 30.6 % (10.0-50.0); Mean Corpuscular Hemoglobin 31.9 pg (28.0-32.0); Mean Corpuscular Hgb Conc. 34.1 g/dL (32.0-36.0); Mean Corpuscular Volume 93.6 fL (80.0-100.0); Monocytes # (auto) 0.7 10 ^3/uL (0-1.3); Monocytes % (auto) 8.7 % (0.0-12.0); Neutrophils # (auto) 4.6 10 ^3/uL (1.6-8.6); Neutrophils % (auto) 57.8 % (37.0-80.0); Platelet Count (auto) 191 10^3/uL (140-450); Red Cell Distribution Width 14.2 % (11.8-14.3); White Blood Cell 7.9 10^3/uL (4.4-10.8)
[2024-05-21 07:00] LABS: Blood Urea Nitrogen 14 mg/dL (9-23); Glucose 98 mg/dL (74-106)
[2024-05-21 07:34] VITALS: PULSE 64; RESP 20
[2024-05-21 08:00] VITALS: PULSE 60
[2024-05-21 09:00] VITALS: BP 102/48; PULSE 57; RESP 16; TEMP 98.2; O2SAT 94
--- NOTE | 2024-05-21 11:43 | DVHDS2 ---
Discharge Summary Date of Admission May 18, 2024 at 21:44 Date of Discharge: May 21, 2024 Admitting Diagnosis Palpitations Acute chest pain Atrial fibrillation with rapid ventricular response Labs/Diagnostic Data: Laboratory Results Test 05/21/24 06:07 05/19/24 07:53 05/19/24 03:10 05/18/24 16:20 White Blood Count 7.9 10^3/uL (4.4-10.8) Red Blood Count 5.00 10^6/uL (4.0-5.20) Hemoglobin 15.9 g/dL (12.2-16.2) Hematocrit 46.8 % (36.0-46.0) Mean Corpuscular Volume 93.6 fL (80.0-100.0) Mean Corpuscular Hemoglobin 31.9 pg (28.0-32.0) Mean Corpuscular Hemoglobin Concent 34.1 g/dL (32.0-36.0) Red Cell Distribution Width 14.2 % (11.8-14.3) Platelet Count 191 10^3/uL (140-450) Mean Platelet Volume 8.1 fL (6.9-10.8) Neutrophils (%) (Auto) 57.8 % (37.0-80.0) Lymphocytes (%) (Auto) 30.6 % (10.0-50.0) Monocytes (%) (Auto) 8.7 % (0.0-12.0) Eosinophils (%) (Auto) 2.2 % (0.0-7.0) Basophils (%) (Auto) 0.7 % (0.0-2.0) Neutrophils # (Auto) 4.6 10 ^3/uL (1.6-8.6) Lymphocytes # (Auto) 2.4 10 ^3/uL (0.4-5.4) Monocytes # (Auto) 0.7 10 ^3/uL (0-1.3) Eosinophils # (Auto) 0.2 10 ^3/uL (0-0.8) Basophils # (Auto) 0.1 10 ^3/uL (0-0.2) Nucleated Red Blood Cells 0.0 % Sodium Level 140 mmol/L (136-145) Potassium Level 4.8 mmol/L (3.5-5.1) Chloride Level 106 mmol/L (98-107) Carbon Dioxide Level 32 mmol/L (20-31) Anion Gap 2 (5-15) Blood Urea Nitrogen 14 mg/dL (9-23) Creatinine 0.70 mg/dL (0.550-1.02) Glomerular Filtration Rate Calc 98 mL/min (>90) BUN/Creatinine Ratio 20.0 (10.0-20.0) Serum Glucose 98 mg/dL (74-106) Calcium Level 9.5 mg/dL (8.7-10.4) Magnesium Level 2.1 mg/dL (1.6-2.6) Total Bilirubin 0.6 mg/dL (0.2-1.0) Aspartate Amino Transferase (AST) 54 U/L (13-40) Alanine Aminotransferase (ALT) 52 U/L (7-40) Alkaline Phosphatase 67 U/L (46-116) Total Protein 6.5 g/dL (5.7-8.2) Albumin 3.7 g/dL (3.2-4.8) Thyroid Stimulating Hormone (TSH) 2.86 uIU/mL (0.55-4.78) Urine Opiates Screen Neg (NEGATIVE) Urine Fentanyl Screen Neg (NEGATIVE) Urine Barbiturates Screen Neg (NEGATIVE) Urine Phencyclidine Screen Neg (NEGATIVE) Urine Amphetamines Screen Neg (NEGATIVE) Urine Benzodiazepines Screen Neg (NEGATIVE) Urine Cocaine Screen Neg (NEGATIVE) Urine Cannabinoids Screen Neg (NEGATIVE) Troponin I High Sensitivity 4 ng/L (</=34) Other Laboratory Tests 05/21/24 06:07 Brief Hx & Hospital Course: This is a 63 years old female with past medical history atrial fibrillation, anxiety, depression came to emergency department because of heart palpitation. Per patient her heart palpitation getting worse. She also had substernal chest pain, nonradiating, heaviness with mild headache. Patient is supposed to see her tone artist apprentice, Dr. Sauceda for a cardiac ablation in June 08 2024. The patient had heart rate of 149. The ER start the patient on Cardizem drip, beta debbie metoprolol. Subsequently her heart rate is controlled. Manager Truck see the patient and did an echo. Echo showed Normal left ventricular size and systolic function.Ejection fraction is estimated at 60%. Normal right ventricular size and systolic function. Grade II diastolic dysfunction with evidence of elevated left-sided filling pressure. No hemodynamically significant valvular disease. Mild to moderate mitral annular calcification and aortic valve sclerosis. PA systolic pressure is estimated at 30-35 mm Hg. Manager Truck recommend we restart her home med but just Multaq and beta debbie metoprolol. Continuing with Eliquis. Advised the patient to follow up with her tone artist apprentice for ablation. Activity as tolerated. Diet per home diet. Her heart rate converted to normal rhythm now so I am going to discharge her home. Physical exam: HEENT: Normocephalic atraumatic pupils equal react to light and accommodation. Extraocular muscles intact, conjunctiva pink, oropharynx moist, no thrush, no exudate. Lymphatic: No lymphadenopathy Cardiovascular exam: S1, S2 was heard. No murmurs, rubs, gallops Lung: Clear on auscultation bilaterally, no wheeze, rale, rhonchi. GI: Abdominal soft, nondistended, nontenderness, positive bowel sounds. Extremity: No crepitus, cyanosis, edema. Pedal pulses present bilateral. Full range of motion. Skin: Normal turgor, no rash. Psych: Alert, oriented x3. Neurology: No focal deficits, cranial nerve II to XII grossly intact. This medical document was created using an electronic medical record system with [employer] direct computerized dictation system. Although this document has been carefully reviewed, there may still be some phonetic and typographical errors. These areas are purely typographical due to imperfections of the software programs, and do not reflect any compromise in the patient's medical care. Condition at Discharge: Stable Final Diagnosis/Problems List Acute chest pain Atrial fibrillation with rapid ventricular response, resolved, converted to regular rhythm Palpitations Discharge Disposition: Home Discharge Instruct/Medications Diet: Cardiac 2g Na,low cholest Activity: No Restrictions, As Tolerated Follow Up/Referral: pcp 1-2 weeks tone artist apprentice per schedule Medications: Resume home meds. Discharge Statement: "Patient was advised to return to the ER or call 911 if any headaches, dizziness, shortness of breath, chest pain, abdominal pain, bleeding, fevers, or worsening of medical condition. Patient was counseled about treatment plan, medications, possible side effects, patientverbalized understanding. All questions were answered to the best of my ability. This discharge took greater then 30 minutes in planning, reviewing documentation, counseling the patient, and discussing with other team members." ASSESSMENT ASSESSMENT Assessment afib Date of Service: May 21, 2024 Billing Provider: AIDEE CUEVAS MD Common Visit Codes: 22618-ZAL/OBS DISCH DAY >30min AIDEE CUEVAS MD May 21, 2024 11:43
[2024-05-21] MEDS ORDERED: LORA2TAB89 PO (12:13)
[2024-05-21 13:00] VITALS: BP 111/70; PULSE 53; RESP 18; TEMP 97.9; O2SAT 95
--- NOTE | 2024-05-24 10:19 | ECG ---
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
== END 2024-05-21 12:52 | disposition home or self-care (01) | DRG 309 ==
LOC: ER 12:01 → TELE 21:44 → TELE-E-ADS 21:44
PROVIDERS: ADMIT Internal Medicine; ATTEND Internal Medicine
DX: I48.91 Unspecified atrial fibrillation (principal); I50.32 Chronic diastolic (congestive) heart failure; I48.92 Unspecified atrial flutter; E66.9 Obesity, unspecified; F41.9 Anxiety disorder, unspecified; F17.210 Nicotine dependence, cigarettes, uncomplicated; Z79.01 Long term (current) use of anticoagulants; Z82.49 Family history of ischemic heart disease and other diseases of the circulatory system; Z83.3 Family history of diabetes mellitus; Z79.899 Other long term (current) drug therapy; Z68.37 Body mass index [BMI] 37.0-37.9, adult
CPT/HCPCS: 36415; 80048; 80053; 80307; 83735; 84443; 84484; 85025; 87081; 93005; 93306; 96365; 96375; 99291; G0378

== ENCOUNTER 2024-06-28 08:35 | Inpatient (IN) | payer SELFPAY ==
[~2024-06-28] VITALS: Ht 160 cm; Wt 100.9 kg
[~2024-06-28 08:35] MED LIST changes: -AMIO200T33 PO; +DRON400T; +LORA2TAB89 PO
--- NOTE | 2024-06-28 09:03 | ED.PDOC ---
HPI Comments 63 y/o F, with PMHX of AFib, Anxiety, and Depression presents to the ED for CC of palpitations. Patient states, that she has been experiencing palpations with associated symptoms of chest pain and shortness of breath x1day. Patient relays, that she recently underwent an ablation on 06/08/24 and is unsure if symptoms are in association to procedure. Patient complains of current 7/10 pain. Patient's heart rate in triage read at 143bpm. Patient is currently on blood thinners. Patient denies headache, weakness, fatigue, lightheadedness, abdominal pain, or nausea. No other associated symptoms, modifiers, recent injuries or sick contacts at this time. Chief Complaint: Palpitations Time Seen by MD: 08:50 Primary Care Provider: DANIELLE Reviewed Notes: Nurses Notes, Medications, Allergies Allergies: Coded Allergies: NO KNOWN ALLERGIES (Unverified , 03/26/13) Home Meds Active Scripts Lorazepam (Ativan) 2 Mg Tab, 0.5 TAB PO QPM PRN, #20 TAB Prov:AIDEE CUEVAS MD 05/21/24 Hydrocodone-Acetaminophen (Hydrocodone Bitartrate/AC 5-325 mg) 1 Tab Tab, 1 TAB PO Q6HP PRN, #20 TAB Prov:FRANSISCA BROWNE MD 12/01/23 Meloxicam (Meloxicam) 7.5 Mg Tab, 1 TAB PO DAILYP PRN for 30 Days, #30 TAB 0 Refills Prov:MARIZOL FREEMAN NP 09/13/23 Cyclobenzaprine Hcl (Cyclobenzaprine Hcl) 5 Mg Tab, 1 TAB PO QHSP PRN for 30 Days, #30 TAB 0 Refills Prov:MARIZOL FREEMAN NP 09/13/23 Apixaban Base (ELIQUIS) 5 Mg Tab, 5 MG PO BID for 90 Days, #180 TAB Prov:SULMA DIGGS MD 09/26/20 Reported Medications Dronedarone Hydrochloride (Multaq) 400 Mg Tab, 200 MG DAILY 05/19/24 Metoprolol Tartrate (Metoprolol Tartrate) 25 Mg Tab, 1 TAB PO DAILY for 90 Days, #90 11/30/23 Gabapentin (Gabapentin) 100 Mg Cap, 1 CAP PO TID for 90 Days, #180 11/30/23 Citalopram Hydrobromide (Citalopram Hydrobromide) 40 Mg Tab, 40 MG PO DAILY for 30 Days, MG 09/25/20 Information Source: Patient Mode of Arrival: Ambulatory Severity: Moderate Timing: Days Duration: Since onset Prehospital treatment: None Location: Substernal Radiation: No Radiation Onset: At Rest Cardiac Risk Factors: Smoker PE Risk Factors: None History of: None Modifying Factors: Nothing Associated Signs and Symptoms: SOB, Palpitations Past Medical History PAST MEDICAL HISTORY: AFIB, Anxiety, Depression Surgical History: Denies all surgeries SENIOR CHEMIST History: No Pertinent SENIOR CHEMIST History Family History Family History: Reviewed,noncontributory to illness, Family hx of HTN Social History Smoker: Cigarettes, Less Than 1 Pack/Day Alcohol: Rarely Drugs: Denies Drug Use Lives In: Home Constitutional: denies: chills, diaphoresis, fatigue, fever, malaise, sweats, weakness, others EENTM: denies: blurred vision, double vision, ear bleeding, ear discharge, ear drainage, ear pain, ear ringing, eye pain, eye redness, hearing loss, mouth pain, mouth swelling, nasal discharge, nose bleeding, nose congestion, nose p ain, photophobia, tearing, throat pain, throat swelling, voice changes, others Respiratory: reports: shortness of breath; denies: cough, hemoptysis, orthopnea, SOB at rest, SOB with excertion, stridor, wheezing, others Cardiovascular: reports: chest pain, palpitations; denies: dizzy spells, diaphoresis, Dyspnea on exertion, edema, irregular heart beat, left arm pain, lightheadedness, PND, syncope, others Gastrointestinal: denies: abdomen distended, abdominal pain, blood streaked bowels, constipated, diarrhea, dysphagia, difficulty swallowing, hematemesis, melena, nausea, poor appetite, poor fluid intake, rectal bleeding, rectal pain, vomiting, others Genitourinary: denies: abnormal vagina bleeding, burning, dyspareunia, dysuria, flank pain, frequency, hematuria, incontinence, pain, , vagina discharge, urgency, others Neurological: denies: dizziness, fainting, headache, left sided numbness, left sided weakness, numbness, paresthesia, pre-existing deficit, right sided numbness, right sided weakness, seizure, speech problems, tingling, tremors, weakness, others Musculoskeletal: denies: back pain, gout, joint pain, joint swelling, muscle pain, muscle stiffness, neck pain, others Integumetry: denies: bruises, change in color, change in hair/nails, dryness, laceration, lesions, lumps, rash, wounds, others Allergic/Immunocompromised: denies: Difficulty Healing, Frequent Infections, Hives, Itching, others Hematologic/Lymphatic: denies: anemia, blood clots, easy bleeding, easy bruising, swollen glands, others Endocrine: denies: excessive hunger, excessive sweating, excessive thirst, excessive urination, flushing, intolerance to cold, intolerance to heat, unexplained weight gain, unexplained weight loss, others Psychiatric: denies: anxiety, bipolar disorder, depression, hopeless, panic disorder, schizophrenia, sleepless, suicidal, others All Other Systems: Reviewed and Negative Physical Exam General Appearance: Moderate Distress HEENT: Normal ENT Inspection, Pharynx Normal, TMs Normal Neck: Full Range of Motion, Non-Tender, Normal, Normal Inspection Respiratory: Chest Non-Tender, Lungs Clear, No Accessory Muscle Use, No Respiratory Distress, Normal Breath Sounds Cardiovascular: Tachycardia Breast Exam: Deferred Gastrointestinal: No Organomegaly, Non Tender, No Pulsatile Mass, Normal Bowel Sounds, Soft Genitalia: Deferred Pelvic: Deferred Rectal: Deferred Extremities: No calf tenderness, Normal capillary refill, Normal inspection, Normal range of motion, Non-tender, No pedal edema Musculoskeletal : Apperance: Normal Neurologic: Alert, No Motor Deficits, No Sensory Deficits Cerebellar Function: NOT DONE Reflexes: NOT DONE Skin: Dry, Normal Color, Warm Peripheral Pulses: 3+ Radial (R), 3+ Radial (L) Lymphatic: No Adenopathy Was a procedure done? Was a procedure done?: No CP Differential Dx Differential Diagnosis: A-fib, A-Flutter, Angina, Anxiety / Panic Attack, Atrial Dysrhythmia, Electrolyte Disorder, Sinus Tachycardia, V-Tach X-Ray, Labs, Meds, VS Vital Signs Date Time Temp Pulse Resp B/P (MAP) Pulse Ox O2 Delivery O2 Flow Rate FiO2 06/28/24 09:45 62 06/28/24 08:54 98.6 143 16 127/87 (100) 95 06/28/24 08:40 141 Lab Test 06/28/24 09:51 06/28/24 08:51 Range/Units Troponin I High Sensitivity Pending 3 L </=34 ng/L White Blood Count 8.9 4.4-10.8 10^3/uL Red Blood Count 5.17 4.0-5.20 10^6/uL Hemoglobin 16.5 H 12.2-16.2 g/dL Hematocrit 48.8 H 36.0-46.0 % Mean Corpuscular Volume 94.4 80.0-100.0 fL Mean Corpuscular Hemoglobin 31.9 28.0-32.0 pg Mean Corpuscular Hemoglobin Concent 33.8 32.0-36.0 g/dL Red Cell Distribution Width 14.7 H 11.8-14.3 % Platelet Count 204 140-450 10^3/uL Mean Platelet Volume 7.7 6.9-10.8 fL Neutrophils (%) (Auto) 59.5 37.0-80.0 % Lymphocytes (%) (Auto) 30.0 10.0-50.0 % Monocytes (%) (Auto) 7.7 0.0-12.0 % Eosinophils (%) (Auto) 1.6 0.0-7.0 % Basophils (%) (Auto) 1.2 0.0-2.0 % Neutrophils # (Auto) 5.3 1.6-8.6 10 ^3/uL Lymphocytes # (Auto) 2.7 0.4-5.4 10 ^3/uL Monocytes # (Auto) 0.7 0-1.3 10 ^3/uL Eosinophils # (Auto) 0.1 0-0.8 10 ^3/uL Basophils # (Auto) 0.1 0-0.2 10 ^3/uL Nucleated Red Blood Cells 0.1 % Sodium Level 137 136-145 mmol/L Potassium Level 4.4 3.5-5.1 mmol/L Chloride Level 109 H 98-107 mmol/L Carbon Dioxide Level 22 20-31 mmol/L Anion Gap 6 5-15 Blood Urea Nitrogen 20 9-23 mg/dL Creatinine 0.76 0.550-1.02 mg/dL Glomerular Filtration Rate Calc 89 >90 mL/min BUN/Creatinine Ratio 26.3 H 10.0-20.0 Serum Glucose 122 H 74-106 mg/dL Calcium Level 9.2 8.7-10.4 mg/dL Current Medications Medications (Trade) Dose Ordered Sig/Zaheer Route Start Time Stop Time Status Last Admin Adenosine (Adenosine) 6 mg ONCE ONCE IV 06/28/24 09:00 06/28/24 09:01 DC 06/28/24 09:21 Amiodarone HCl 100 ml @ 600 mls/hr ONCE ONCE IV 06/28/24 09:30 06/28/24 09:39 DC 06/28/24 10:09 [place] [id number] Ph: [phone] DIAGNOSTIC IMAGING Diagnostic Imaging Report : [id number] Signed PATIENT: ALESSIA WHITMORE ACCT: [id number] UNIT: [id number] : 1960 LOC: ER ROOM / BED: / AGE / SEX: 63 / F ADM STATUS: REG ER SERVICE 0 ORDERING PHYSICIAN: DOC DANG MD PROCEDURE(s): CXRP - CHEST PORTABLE REASON: sob ORDER NUMBER(s): [id number], ACCESSION NUMBER(s): [id number] XY CHEST PORTABLE, HISTORY: sob COMPARISON: XY CHEST PORTABLE on DOS: 04/15/24, XY CHEST PORTABLE on DOS: 12/24/23, XY CHEST PORTABLE on DOS: 11/29/23 XY CHEST PORTABLE on DOS: 04/15/24, XY CHEST PORTABLE on DOS: 12/24/23, XY CHEST PORTABLE on DOS: 11/29/23 TECHNICAL DATA: 1 view of the chest was obtained. FINDINGS: Lines and tubes: None Cardiomediastinal silhouette: normal Pulmonary vasculature: normal Lung expansion: normal Lung airspace: normal Lung interstitium: normal Pleura: normal Pneumothorax: no Bones: Unremarkable Other: no IMPRESSION: No acute intrathoracic abnormality. ATED BY: IHSAN THOMAS MD DICTATED DATE/TIME: 06/28/24919 SIGNED BY: IHSAN THOMAS MD SIGNED DATE/TIME: 06/28/24919 CC: Patient alert. Tachycardia. Saturation pristine on room air. Answering questions pain EKG does show supraventricular tachycardic. To confirmed the rhythm we will be give adenosine. Was given aspirin. Reviewed her history. Explained to the patient. Continue cardiac monitoring. Time of 1ST Reevaluation: 09:20 Reevaluation 1ST: Unchanged Patient Education/Counseling: Diagnosis, Treatment Family Education/Counseling: No Family Present Departure 1 Departure Time of Disposition: 09:05 Impression: Primary Impression: Supraventricular tachycardia Additional Impression: Atrial fibrillation and flutter Disposition: ADMITTED INPATIENT Admit to: Med Surg Condition: Guarded Critical Care Note Critical Care Time?: Yes (90 min-critical care time only) Stability Stability form required: No Heart Score Heart Score: Heart Score Response (Comments) Value History Moderate Suspicious 1 EKG Normal 0 Age 45-64 1 Risk Factors 1 or 2 risk factors 1 Troponin Normal limit 0 Total 3 I personally scribed for DOC DANG MD ([email or web address]) on 06/28/24 at 09:03. Electronically submitted by Shanna Wilson ([email or web address]). I personally scribed for DOC DANG MD ([email or web address]) on 06/28/24 at 10:13. Electronically submitted by Shanna Wilson ([email or web address]). DOC DANG MD Jun 28, 2024 09:03
[2024-06-28 09:10] LABS: Basophils # (auto) 0.1 10 ^3/uL (0-0.2); Basophils % (auto) 1.2 % (0.0-2.0); Eosinophils # (auto) 0.1 10 ^3/uL (0-0.8); Eosinophils % (auto) 1.6 % (0.0-7.0); Hematocrit 48.8 % (36.0-46.0); Hemoglobin 16.5 g/dL (12.2-16.2); Lymphocytes # (auto) 2.7 10 ^3/uL (0.4-5.4); Mean Corpuscular Hemoglobin 31.9 pg (28.0-32.0); Mean Corpuscular Hgb Conc. 33.8 g/dL (32.0-36.0); Mean Corpuscular Volume 94.4 fL (80.0-100.0); Monocytes # (auto) 0.7 10 ^3/uL (0-1.3); Monocytes % (auto) 7.7 % (0.0-12.0); Neutrophils # (auto) 5.3 10 ^3/uL (1.6-8.6); Neutrophils % (auto) 59.5 % (37.0-80.0); Nucleated Red Blood Cells % 0.1 %; Platelet Count (auto) 204 10^3/uL (140-450); Red Blood Cells 5.17 10^6/uL (4.0-5.20); Red Cell Distribution Width 14.7 % (11.8-14.3); White Blood Cell 8.9 10^3/uL (4.4-10.8)
[2024-06-28 09:14] LABS: Potassium 4.4 mmol/L (3.5-5.1); Sodium 137 mmol/L (136-145)
[2024-06-28 09:15] LABS: Anion Gap 6 (5-15); Carbon Dioxide 22 mmol/L (20-31)
[2024-06-28 09:16] VITALS: PULSE 144; RESP 21; O2SAT 98
[2024-06-28 09:16] LABS: Calcium 9.2 mg/dL (8.7-10.4)
[2024-06-28 09:18] LABS: Chloride 109 mmol/L (98-107)
[2024-06-28 09:20] LABS: BUN/Creatinine Ratio 26.3 (10.0-20.0); Blood Urea Nitrogen 20 mg/dL (9-23)
[2024-06-28] MEDS: ADENOSINE 6 MG/2 ML INJ IV ONE (09:21)
--- NOTE | 2024-06-28 09:23 | DVH ---
XY CHEST PORTABLE, HISTORY: sob COMPARISON: XY CHEST PORTABLE on DOS: 04/15/24, XY CHEST PORTABLE on DOS: 12/24/23, XY CHEST PORTABLE on DOS: 11/29/23 XY CHEST PORTABLE on DOS: 04/15/24, XY CHEST PORTABLE on DOS: 12/24/23, XY CHEST PORTABLE on DOS: TECHNICAL DATA: 1 view of the chest was obtained. FINDINGS: Lines and tubes: None Cardiomediastinal silhouette: normal Pulmonary vasculature: normal Lung expansion: normal Lung airspace: normal Lung interstitium: normal Pleura: normal Pneumothorax: no Bones: Unremarkable Other: no IMPRESSION: No acute intrathoracic abnormality.
[2024-06-28 09:25] LABS: Glucose 122 mg/dL (74-106)
[2024-06-28] MEDS: AMIODARONE 360mg/200mL PREMIX 200 ML IV ONE (09:45)
[2024-06-28] MEDS: AMIODARONE BOLUS KIT 100 ML IV ONE (09:45)
--- NOTE | 2024-06-28 09:48 | ECG ---
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
[2024-06-28] MEDS: LORazepam 0.5 MG TAB PO ONE (11:13)
[2024-06-28] MEDS ORDERED: MORPHINE SULFATE INJ 2 MG/ml SYRG IV PRN ×2 (12:00)
[2024-06-28] MEDS ORDERED: ONDANSETRON HCL 4 MG/2 ML VIAL IV PRN (12:00)
[2024-06-28] MEDS ORDERED: NITROGLYCERIN 0.4 MG SL TAB SL PRN (12:00)
[2024-06-28] MEDS ORDERED: PANT40T PO (12:14)
--- NOTE | 2024-06-28 12:17 | DVHHP2 ---
History of Present Illness Reason for Visit: Palpitations History of Present Illness Erin Silva is a 63-year-old female with past medical history of AFib on apixaban, hep C, right renal mass, anxiety, depression, obesity, abdominal ex lap in 1994, and cardiac ablation on June 08, 2024 at [facility] who presents to the ED with palpitations, chest pain, and shortness of breath x1 day. She states that it started occurred yesterday morning her heart rate was low in the low 40s and 50 and she attempted to fall asleep with no relief. She states that she is here now for an eval. She denies any recent sick contacts, recent trauma or injury, recent stressors, recent ingestion of spoiled food, lightheadedness, weakness, dizziness, nausea, vomiting, diarrhea, fever and chills. Noticed on examination on monitor patient was AFib 113s to 130s then Damir down to 50s while at bedside. Cardiovascular: AFIB Hepatobiliary: Hep A/B/C Psych: Anxiety, Depression Past Medical History Right renal mass Obesity Past Surgical History: Other (Cardiac ablation on 06/08/2024 at [facility] and abdominal ex lap in 1994) Family History: DM, Hypertension, Other (Dad with alcohol abuse, diabetes, CHF, and hypertension then mom with diabetes) Smoke: <1 pack per day ALCOHOL: occassional Drugs: None Lives: Roommate Domestic Violence: Neg Review of Systems Respiratory: Shortness of breath Cardiovascular: Chest Pain, Palpitations Allergies: Coded Allergies: NO KNOWN ALLERGIES (Unverified , 03/26/13) Exam Vital Signs Vital Signs Date Time Temp Pulse Resp B/P (MAP) Pulse Ox O2 Delivery O2 Flow Rate FiO2 06/28/24 09:45 62 06/28/24 08:54 98.6 16 127/87 (100) 95 General Appearance: Alert, Oriented X3, Cooperative, No acute distress HEENT: Atraumatic, PERRLA, EOMI, Mucous membr. moist/pink Respiratory: Normal air movement Cardiovascular: Normal S1, Normal S2, No murmurs Abdominal: Normal bowel sounds, Soft, No tenderness, No hepatospenomegaly, No masses Extremities: No cyanosis, Normal pulses, No tenderness/swelling Skin: No significant lesion Neuro: Normal speech, Strength at 5/5 X4 ext, Normal tone, Sensation intact Psych/Mental Status: Mental status NL, Mood NL Labs/Xrays Labs Test 06/28/24 09:51 06/28/24 08:51 Range/Units Troponin I High Sensitivity 3 L </=34 ng/L White Blood Count 8.9 4.4-10.8 10^3/uL Red Blood Count 5.17 4.0-5.20 10^6/uL Hemoglobin 16.5 H 12.2-16.2 g/dL Hematocrit 48.8 H 36.0-46.0 % Mean Corpuscular Volume 94.4 80.0-100.0 fL Mean Corpuscular Hemoglobin 31.9 28.0-32.0 pg Mean Corpuscular Hemoglobin Concent 33.8 32.0-36.0 g/dL Red Cell Distribution Width 14.7 H 11.8-14.3 % Platelet Count 204 140-450 10^3/uL Mean Platelet Volume 7.7 6.9-10.8 fL Neutrophils (%) (Auto) 59.5 37.0-80.0 % Lymphocytes (%) (Auto) 30.0 10.0-50.0 % Monocytes (%) (Auto) 7.7 0.0-12.0 % Eosinophils (%) (Auto) 1.6 0.0-7.0 % Basophils (%) (Auto) 1.2 0.0-2.0 % Neutrophils # (Auto) 5.3 1.6-8.6 10 ^3/uL Lymphocytes # (Auto) 2.7 0.4-5.4 10 ^3/uL Monocytes # (Auto) 0.7 0-1.3 10 ^3/uL Eosinophils # (Auto) 0.1 0-0.8 10 ^3/uL Basophils # (Auto) 0.1 0-0.2 10 ^3/uL Nucleated Red Blood Cells 0.1 % Sodium Level 137 136-145 mmol/L Potassium Level 4.4 3.5-5.1 mmol/L Chloride Level 109 H 98-107 mmol/L Carbon Dioxide Level 22 20-31 mmol/L Anion Gap 6 5-15 Blood Urea Nitrogen 20 9-23 mg/dL Creatinine 0.76 0.550-1.02 mg/dL Glomerular Filtration Rate Calc 89 >90 mL/min BUN/Creatinine Ratio 26.3 H 10.0-20.0 Serum Glucose 122 H 74-106 mg/dL Calcium Level 9.2 8.7-10.4 mg/dL XY CHEST PORTABLE, HISTORY: sob COMPARISON: XY CHEST PORTABLE on DOS: 04/15/24, XY CHEST PORTABLE on DOS: , XY CHEST PORTABLE on DOS: 11/29/23 XY CHEST PORTABLE on DOS: 04/15/24, XY CHEST PORTABLE on DOS: 12/24/23, XY CHEST PORTABLE on DOS: 11/29/23 TECHNICAL DATA: 1 view of the chest was obtained. FINDINGS: Lines and tubes: None Cardiomediastinal silhouette: normal Pulmonary vasculature: normal Lung expansion: normal Lung airspace: normal Lung interstitium: normal Pleura: normal Pneumothorax: no Bones: Unremarkable Other: no IMPRESSION: No acute intrathoracic abnormality. Assessment/Plan Assessment/Plan Assessment AFib RVR converted to sinus Damir Palpitations Chest pain Dyspnea Obesity Tobacco use ETOH use History of cardiac ablation on 06/08/2024 at [facility] History of hep C History of AFib on apixaban History of right renal mass History of anxiety History of depression History of abdominal ex lap in 1994 Plan Admit to ICU ?Possible need of pacemaker Cardiac consult Fam Cuenca Counseled patient on tobacco cessation Counseled patient on ETOH use Discussed lifestyle modifications, diet, and exercise EKG noted Ativan given in ED Adenosine given ED Chest x-ray noted UA Troponin negative x2 Echo ordered NPO for now until Cardiology has a plan in place Hold beta-blockers that are under home medications for now, rounding team to decide when safe for patient IV fluids Continue Protonix home medication Home medications reconciled Hold Multaq for now rounding team to decide when appropriate Plan discussed with: Patient My Orders Orders - LAUREN CLIFFORD Procedure Category Date Status Time * Cardiology Consult CONS 06/28/24 Transmitted 11:51 Date of Service: Jun 28, 2024 Billing Provider: LAUREN CLIFFORD Common Visit Codes: [id number] INP/OBS CARE (HIGH) LAUREN CLIFFORD Jun 28, 2024 12:17
[2024-06-28] MEDS: SODIUM CHLORIDE 0.9% 1,000 ML IV SCH (13:11)
[2024-06-28] MEDS: GABAPENTIN 100 MG CAP PO SCH (14:16)
--- NOTE | 2024-06-28 15:21 | DVHINCON2 ---
Date of service: Jun 28, 2024 History of Present Illness 63 yo F office pt of [facility] of persistent afib s/p ablation admitted for AFL . pt is now SR Past Medical History reviewed Family History: Alcoholism G8 FATHER Diabetes mellitus G8 MOTHER G8 FATHER FH: CHF (congestive heart failure) G8 FATHER Hypertension G8 FATHER Allergies: Coded Allergies: NO KNOWN ALLERGIES (Unverified , 03/26/13) Home Meds Active Scripts Lorazepam (Ativan) 2 Mg Tab, 0.5 TAB PO QPM PRN, #20 TAB Prov:AIDEE CUEVAS MD 05/21/24 Hydrocodone-Acetaminophen (Hydrocodone Bitartrate/AC 5-325 mg) 1 Tab Tab, 1 TAB PO Q6HP PRN, #20 TAB Prov:FRANSISCA BROWNE MD 12/01/23 Meloxicam (Meloxicam) 7.5 Mg Tab, 1 TAB PO DAILYP PRN for 30 Days, #30 TAB 0 Refills Prov:MARIZOL [employer]EM[employer] SUPERVISOR 09/13/23 Cyclobenzaprine Hcl (Cyclobenzaprine Hcl) 5 Mg Tab, 1 TAB PO QHSP PRN for 30 Days, #30 TAB 0 Refills Prov:MARIZOL [employer] SUPERVISOR 09/13/23 Apixaban Base (ELIQUIS) 5 Mg Tab, 5 MG PO BID for 90 Days, #180 TAB Prov:SULMA DIGGS MD 09/26/20 Reported Medications Pantoprazole Sodium Sesquihydr (Pantoprazole Sodium) 40 Mg Tab, 1 TAB PO BID 06/28/24 Metoprolol Tartrate (Metoprolol Tartrate) 25 Mg Tab, 1 TAB PO DAILY for 90 Days, #90 11/30/23 Gabapentin (Gabapentin) 100 Mg Cap, 1 CAP PO TID for 90 Days, #180 11/30/23 Citalopram Hydrobromide (Citalopram Hydrobromide) 40 Mg Tab, 40 MG PO DAILY for 30 Days, MG 09/25/20 Discontinued Reported Medications Dronedarone Hydrochloride (Multaq) 400 Mg Tab, 200 MG DAILY 05/19/24 Current Medications Current Medications Medications (Trade) Dose Ordered Sig/Zaheer Route PRN Reason Start Time Stop Time Status Last Admin Sodium Chloride 1,000 ml @ 100 mls/hr Q10H IV 06/28/24 12:00 06/28/24 13:11 Acetaminophen/ Hydrocodone Bitart ([place]inth 5/325MG Tab) 1 tab Q4HP PRN PO MODERATE PAIN (4-6 PAIN SCALE) 06/28/24 12:00 Ondansetron HCl (Zofran) 4 mg Q4HP PRN IV NAUSEA / VOMITING 06/28/24 12:00 Enoxaparin Sodium (Lovenox) 40 mg DAILY SC 06/29/24 10:00 Acetaminophen (Tylenol Tablet) 650 mg Q6HP PRN PO PAIN SCALE 1-3 OR TEMP>100.4 06/28/24 12:00 Morphine Sulfate 2 mg Q4HPRN PRN IV SEVERE PAIN (7-10 PAIN SCALE) 06/28/24 12:00 Nitroglycerin (Ntrostat Sublingual) 0.4 mg Q5MINP PRN SL FOR CHEST PAIN 06/28/24 12:00 Morphine Sulfate 2 mg Q30M PRN IV FOR CHEST PAIN 06/28/24 12:00 Gabapentin (Neurontin Capsule) 100 mg TID PO 06/28/24 14:00 06/28/24 14:16 Citalopram Hydrobromide (CeleXA TABLET) 40 mg DAILY PO 06/29/24 10:00 Patient Own Medication 200 mg DAILY PO 06/29/24 10:00 Review of Systems 10 pt ros otherwise negative Vital Signs Vital Signs Date Time Temp Pulse Resp B/P (MAP) Pulse Ox O2 Delivery O2 Flow Rate FiO2 06/28/24 13:00 68 21 99/58 (72) 92 06/28/24 09:16 98.4 98.4 06/28/24 09:16 Room Air* 0 21 Physical Exam nad s1 s2 rrr ctab soft nt/nd no edema Labs/Diagnostic Data Labs Test 06/28/24 09:51 06/28/24 08:51 Range/Units Troponin I High Sensitivity 3 L </=34 ng/L White Blood Count 8.9 4.4-10.8 10^3/uL Red Blood Count 5.17 4.0-5.20 10^6/uL Hemoglobin 16.5 H 12.2-16.2 g/dL Hematocrit 48.8 H 36.0-46.0 % Mean Corpuscular Volume 94.4 80.0-100.0 fL Mean Corpuscular Hemoglobin 31.9 28.0-32.0 pg Mean Corpuscular Hemoglobin Concent 33.8 32.0-36.0 g/dL Red Cell Distribution Width 14.7 H 11.8-14.3 % Platelet Count 204 140-450 10^3/uL Mean Platelet Volume 7.7 6.9-10.8 fL Neutrophils (%) (Auto) 59.5 37.0-80.0 % Lymphocytes (%) (Auto) 30.0 10.0-50.0 % Monocytes (%) (Auto) 7.7 0.0-12.0 % Eosinophils (%) (Auto) 1.6 0.0-7.0 % Basophils (%) (Auto) 1.2 0.0-2.0 % Neutrophils # (Auto) 5.3 1.6-8.6 10 ^3/uL Lymphocytes # (Auto) 2.7 0.4-5.4 10 ^3/uL Monocytes # (Auto) 0.7 0-1.3 10 ^3/uL Eosinophils # (Auto) 0.1 0-0.8 10 ^3/uL Basophils # (Auto) 0.1 0-0.2 10 ^3/uL Nucleated Red Blood Cells 0.1 % Sodium Level 137 136-145 mmol/L Potassium Level 4.4 3.5-5.1 mmol/L Chloride Level 109 H 98-107 mmol/L Carbon Dioxide Level 22 20-31 mmol/L Anion Gap 6 5-15 Blood Urea Nitrogen 20 9-23 mg/dL Creatinine 0.76 0.550-1.02 mg/dL Glomerular Filtration Rate Calc 89 >90 mL/min BUN/Creatinine Ratio 26.3 H 10.0-20.0 Serum Glucose 122 H 74-106 mg/dL Calcium Level 9.2 8.7-10.4 mg/dL Assessment AFL hx of af s/p ablation obesity HTN HL Plan/Recommendation resume multaq and BB cont doac dc amio gtt fu with EP , may need R sided ablation in future outpt monitor Plan discussed with: Patient SANTOSDENISE MD Jun 28, 2024 15:21
[2024-06-28 15:46] LABS: Urine Bacteria None Seen /hpf (None Seen)
[2024-06-28 16:06] LABS: Urine Blood Negative /uL (Negative); Urine Clarity Clear (Clear); Urine Color Light-Yellow (Yellow); Urine Protein, UAD Negative (Negative); Urine Specific Gravity 1.016 (1.001-1.035); Urine Squamous Epithelial Cell FEW /hpf (<5); Urine Urobilinogen Normal (Negative); Urine WBC 1 /HPF (0-5)
[2024-06-28 19:20] VITALS: PULSE 65; RESP 19; O2SAT 94
--- NOTE | 2024-06-28 19:41 | ECG ---
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
[2024-06-28 23:11] VITALS: PULSE 62; RESP 16; O2SAT 92
[2024-06-29 07:13] LABS: Basophils # (auto) 0.1 10 ^3/uL (0-0.2); Basophils % (auto) 1.1 % (0.0-2.0); Eosinophils # (auto) 0.2 10 ^3/uL (0-0.8); Eosinophils % (auto) 2.1 % (0.0-7.0); Hematocrit 42.5 % (36.0-46.0); Hemoglobin 14.7 g/dL (12.2-16.2); Lymphocytes # (auto) 2.3 10 ^3/uL (0.4-5.4); Lymphocytes % (auto) 32.6 % (10.0-50.0); Mean Corpuscular Hemoglobin 32.4 pg (28.0-32.0); Mean Corpuscular Hgb Conc. 34.6 g/dL (32.0-36.0); Mean Corpuscular Volume 93.8 fL (80.0-100.0); Monocytes # (auto) 0.7 10 ^3/uL (0-1.3); Monocytes % (auto) 9.9 % (0.0-12.0); Neutrophils # (auto) 3.8 10 ^3/uL (1.6-8.6); Neutrophils % (auto) 54.3 % (37.0-80.0); Nucleated Red Blood Cells % 0.2 %; Platelet Count (auto) 161 10^3/uL (140-450); Red Blood Cells 4.54 10^6/uL (4.0-5.20); Red Cell Distribution Width 14.7 % (11.8-14.3)
--- NOTE | 2024-06-29 07:19 | ECG ---
[facility] Test Date: 2024-06-28 Test Time: 08:40:36 Pat Name: ALESSIA WHITMORE Department: C Room: 0248T Gender: F Skiver Machine: CARRIE : 1960 Requested By: DOC DANG Order Number: [id number] Reading MD: Rebel Levy Measurements Intervals [place] Rate: 141 P: 246 DC: 148 QRS: -4 QRSD: 140 T: -73 QT: 394 QTc: 604 Interpretive Statements Ectopic atrial tachycardia, unifocal IVCD, consider atypical RBBB Electronically Signed On 06-30-2024 17:58:47 PST by Rebel Levy Please click the below link to view image of tracing.
[2024-06-29 07:22] LABS: Albumin 3.8 g/dL (3.2-4.8); Alkaline Phosphatase 68 U/L (46-116); Anion Gap 6 (5-15); Aspartate Aminotransferase 39 U/L (13-40); Bilirubin, Total 0.6 mg/dL (0.2-1.0); Blood Urea Nitrogen 13 mg/dL (9-23); Calcium 9.4 mg/dL (8.7-10.4); Carbon Dioxide 26 mmol/L (20-31); Glucose 90 mg/dL (74-106); Potassium 4.4 mmol/L (3.5-5.1); Sodium 142 mmol/L (136-145); Total Protein 6.7 g/dL (5.7-8.2)
[2024-06-29 07:28] LABS: Alanine Aminotransferase 49 U/L (7-40); Chloride 110 mmol/L (98-107)
[2024-06-29 07:30] VITALS: PULSE 125; RESP 13
[2024-06-29] MEDS: ENOXAPARIN SOD 40 MG/0.4 ML SYRINGE SC SCH (09:50)
[2024-06-29] MEDS: CITALOPRAM HYDROBR 20 MG TAB PO SCH (09:50)
[2024-06-29] MEDS ORDERED: [UNRECOGNIZED DRUG - OTHER] PO SCH (10:00)
[2024-06-29] MEDS: AMIODARONE 360mg/200mL PREMIX 200 ML IV ONE (10:41)
[2024-06-29] MEDS: LORazepam 2MG/ML-1ML VIAL IV ONE (11:32)
--- NOTE | 2024-06-29 13:46 | DVHPN2 ---
Assessment/Plan Assessment/Plan Progress note 63 year old female with aflutter s/p ablation admitted for afib with rvr. Physical exam alert, oriented x3 clear breath sounds s1 s2 tachycardia irregular abdomen soft nontender no LE edema labs ekg imaging reviewed Assessment and plan afib with RVR on eliquis aflutter s/p ablation tobacco use obesity alcohol use chronic hypoxic respiratory failure secondary polycytemia likely from above amio drip, metop succinate goal rate <110 transition to oral once rate controlled seen by cardio nicotine patches euvolemic watch for withdrawal therapeutic lovenox resume home meds keep K 4 Ph 3 Mg 2 diet cardiac dvt ppx on AC gi ppx not indicated prognosis poor condition critical full code critical care time 59 minutes Plan discussed with: Patient My Orders Orders - NHAN ALVA MD Procedure Category Date Status Time Enoxaparin Sodium PHA 06/29/24 Verified (Lovenox) 22:00 Date of Service: Jun 29, 2024 Billing Provider: NHAN ALVA MD Common Visit Codes: [id number] CARE 30-74 MIN NHAN ALVA MD Jun 29, 2024 13:46
--- NOTE | 2024-06-29 14:00 | ECG ---
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
--- NOTE | 2024-06-29 15:04 | DVHPN2 ---
Progress Note Date Seen: Jun 29, 2024 Medical Necessity Reason Pt with a Central, PICC or Fol: No Subjective Other Systems: pt flipped back into AFL Objective vital signs Vital Sign Date Time Temp Pulse Resp B/P (MAP) Pulse Ox O2 Delivery O2 Flow Rate FiO2 06/29/24 13:30 130 17 140/88 (105) 97 06/29/24 07:30 Nasal Cannula* 3 32 06/28/24 19:00 98.0 98.0 Total Intake and Output 06/28/24 06/28/24 06/29/24 15:00 23:00 07:00 Intake Total 366.65 ml 550 ml 400 ml Balance 366.65 ml 550 ml 400 ml medications Current Medications Medications Dose Ordered Sig/Zaheer Route Start Time Stop Time Status Last Admin Dose Admin Sodium Chloride 1,000 ml @ 100 mls/hr Q10H IV 06/28/24 12:00 06/29/24 06:19 100 MLS/HR Acetaminophen/ Hydrocodone Bitart 1 tab Q4HP PRN PO 06/28/24 12:00 Acetaminophen 650 mg Q6HP PRN PO 06/28/24 12:00 Gabapentin 100 mg TID PO 06/28/24 14:00 06/29/24 14:12 100 MG Citalopram Hydrobromide 40 mg DAILY PO 06/29/24 10:00 06/29/24 09:50 40 MG Metoprolol Succinate 25 mg DAILY PO 06/30/24 10:00 Patient Own Medication 200 mg DAILY PO 06/30/24 10:00 Enoxaparin Sodium 100 mg Q12HR SC 06/29/24 22:00 Patient Own Medication 400 mg BID PO 06/29/24 14:00 UNV Examination: GENERAL:Abnormal, HEENT:Abnormal, LUNGS:Abnormal, CVS:Abnormal, ABDOMEN:Abnormal laboratory and microbiology Laboratory Tests 06/29/24 06:11 Test 06/29/24 06:11 Range/Units Serum Glucose 90 74-106 mg/dL Problem List/Assessment/Plan Problem List/Assessment/Plan recurrent AFL hx of afib s/p ablation obesity copd htn amio bolus resume multaq outpt EP eval cont doac Plan discussed with: Patient My Orders My Orders Orders - DENISE SANTOS MD Procedure Category Date Status Time (Nf) Multaq PHA 06/29/24 Logged 14:00 Amiodarone Bolus Kit PHA 06/29/24 Logged (Cordarone) 14:00 Date of Service: Jun 29, 2024 Billing Provider: DENISE SANTOS MD Common Visit Codes: NOT BILLABLE DENISE SANTOS MD Jun 29, 2024 15:04
[2024-06-29] MEDS: DRONEDARONE HCL 400 MG TAB PO SCH (17:00)
[2024-06-29] MEDS: AMIODARONE BOLUS KIT 100 ML IV ONE (17:00)
[2024-06-29 18:57] VITALS: PULSE 125
[2024-06-29 18:58] VITALS: BP 135/93; PULSE 131; RESP 14; TEMP 98; O2SAT 97
[2024-06-29 20:00] VITALS: PULSE 125; PULSE 131; RESP 18; O2SAT 98
[2024-06-29] MEDS ORDERED: DRON400T PO (20:38)
[2024-06-29] MEDS ORDERED: METO25TA5 PO (20:38)
[2024-06-29 21:00] VITALS: BP 135/82; PULSE 127; RESP 18; TEMP 97.9; O2SAT 97
[2024-06-29] MEDS: ENOXAPARIN SOD 100 MG/1 ML SYRINGE SC SCH (21:47)
[2024-06-29] MEDS: ACETAMINOPHEN 325 MG TAB PO PRN (21:56)
[2024-06-30] VITALS (8 sets, daily range): BP systolic 116–151; BP diastolic 62–87; PULSE 73–133; RESP 18–19; TEMP 97.6–98.3; O2SAT 93–99
[2024-06-30 06:52] LABS: Basophils # (auto) 0 10 ^3/uL (0-0.2); Basophils % (auto) 0.6 % (0.0-2.0); Eosinophils # (auto) 0.1 10 ^3/uL (0-0.8); Eosinophils % (auto) 1.5 % (0.0-7.0); Hematocrit 49.3 % (36.0-46.0); Hemoglobin 16.6 g/dL (12.2-16.2); Lymphocytes # (auto) 2.3 10 ^3/uL (0.4-5.4); Lymphocytes % (auto) 29.1 % (10.0-50.0); Mean Corpuscular Hemoglobin 31.6 pg (28.0-32.0); Mean Corpuscular Hgb Conc. 33.7 g/dL (32.0-36.0); Mean Corpuscular Volume 93.9 fL (80.0-100.0); Monocytes # (auto) 0.6 10 ^3/uL (0-1.3); Monocytes % (auto) 8.1 % (0.0-12.0); Neutrophils # (auto) 4.8 10 ^3/uL (1.6-8.6); Neutrophils % (auto) 60.7 % (37.0-80.0); Nucleated Red Blood Cells % 0.2 %; Platelet Count (auto) 181 10^3/uL (140-450); Red Blood Cells 5.25 10^6/uL (4.0-5.20); Red Cell Distribution Width 14.1 % (11.8-14.3); White Blood Cell 7.9 10^3/uL (4.4-10.8)
[2024-06-30 07:00] LABS: Potassium 4.3 mmol/L (3.5-5.1); Sodium 141 mmol/L (136-145)
[2024-06-30 07:01] LABS: Anion Gap 5 (5-15); Calcium 9.5 mg/dL (8.7-10.4); Carbon Dioxide 29 mmol/L (20-31)
[2024-06-30 07:06] LABS: BUN/Creatinine Ratio 16.4 (10.0-20.0); Blood Urea Nitrogen 11 mg/dL (9-23); Glucose 98 mg/dL (74-106)
[2024-06-30 07:10] LABS: Chloride 107 mmol/L (98-107)
[2024-06-30] MEDS: METOPROLOL SUCCINATE XL 50 MG TAB PO SCH (09:10)
[2024-06-30] MEDS ORDERED: [UNRECOGNIZED DRUG - OTHER] PO SCH (10:00)
--- NOTE | 2024-06-30 13:17 | DVHPN2 ---
Subjective The patient is seen and examined at bedside. Complain of heart palpitation. Reviewed: Care Plan, H&P, Labs, Medications, Previous Orders, Radiology Changes from previous H/P or p: No Changes Cardiovascular: Chest Pain, Palpitations Respiratory: Shortness of breath Objective Vitals Vital Signs Date Time Temp Pulse Resp B/P (MAP) Pulse Ox O2 Delivery O2 Flow Rate FiO2 06/30/24 09:17 97.9 73 18 133/62 (85) 99 97.9 06/30/24 08:00 Nasal Cannula* 3 32 Intake/Output Intake and Output 06/30/24 07:00 Intake Total 1946.6375 ml Balance 1946.6375 ml Intake Oral 605 ml IV Total 1341.6375 ml # Voids 3 General Appearance: Alert, Oriented X3, Cooperative, No acute distress HEENT: Atraumatic, PERRLA, EOMI, Mucous membr. moist/pink Neck: Supple Lungs: Clear to auscultation, Normal air movement Cardiovascular: Regular rate, Normal S1, Normal S2, No murmurs, Gallops, Rubs Abdomen: Normal bowel sounds, Soft, No tenderness Neuro: Cranial nerves 3-12 NL Psych/Mental Status: Mental status NL Medications Current Medications Medications Dose Ordered Sig/Zaheer Route Start Time Stop Time Status Last Admin Dose Admin Sodium Chloride 1,000 ml @ 100 mls/hr Q10H IV 06/28/24 12:00 06/30/24 04:00 100 MLS/HR Acetaminophen/ Hydrocodone Bitart 1 tab Q4HP PRN PO 06/28/24 12:00 Acetaminophen 650 mg Q6HP PRN PO 06/28/24 12:00 06/29/24 21:56 650 MG Gabapentin 100 mg TID PO 06/28/24 14:00 06/30/24 06:34 100 MG Citalopram Hydrobromide 40 mg DAILY PO 06/29/24 10:00 06/30/24 09:09 40 MG Metoprolol Succinate 25 mg DAILY PO 06/30/24 10:00 06/30/24 09:10 25 MG Enoxaparin Sodium 100 mg Q12HR SC 06/29/24 22:00 06/30/24 09:10 100 MG Dronedarone 400 mg BID PO 06/29/24 14:00 06/30/24 09:08 400 MG Laboratory Results Laboratory Tests 06/30/24 06:24 Chemistry Test 06/30/24 06:24 Calcium Level 9.5 mg/dL (8.7-10.4) Magnesium Level 2.0 mg/dL (1.6-2.6) Phosphorus Level 4.0 mg/dL (2.4-5.1) Urinalysis Test 06/28/24 15:20 Urine Color Light-yellow (Yellow) Urine Clarity Clear (Clear) Urine pH 5.0 (5.0-9.0) Urine Specific [place] 1.016 (1.001-1.035) Urine Protein Negative (Negative) Urine Ketones Negative (Negative) Urine Blood Negative /uL (Negative) Urine Nitrite Negative (Negative) Urine Bilirubin Negative (Negative) Urine Urobilinogen Normal mg/dL (Negative) Urine Leukocyte Esterase Negative /uL (Negative) Urine RBC <1 /hpf (0 - 4) Urine Microscopic WBC 1 /HPF (0-5) Urine Squamous Epithelial Cells Few /hpf (<5) Urine Bacteria None seen /hpf (None Seen) Urine Glucose Normal mg/dL (Normal) Labs and/or images reviewed: Labs reviewed by me Assessment/Plan Assessment/Plan afib with RVR on eliquis aflutter s/p ablation tobacco use obesity alcohol use chronic hypoxic respiratory failure secondary polycytemia likely from above amio drip, metop succinate goal rate <110 transition to oral once rate controlled seen by cardio nicotine patches euvolemic watch for withdrawal therapeutic lovenox resume home meds keep K 4 Ph 3 Mg 2 diet cardiac This medical document was created using an electronic medical record system with [employer] direct computerized dictation system. Although this document has been carefully reviewed, there may still be some phonetic and typographical errors. These areas are purely typographical due to imperfections of the software programs, and do not reflect any compromise in the patient's medical care. Plan discussed with: Patient Date of Service: Jun 30, 2024 Billing Provider: AIDEE CUEVAS MD Common Visit Codes: [id number] INP/OBS CARE(HIGH) AIDEE CUEVAS MD Jun 30, 2024 13:17
[2024-06-30] MEDS: LORazepam 2MG/ML-1ML VIAL IV PRN (14:26)
[2024-06-30] MEDS: HYDROcodone-ACET 5/325MG TAB PO PRN (21:08)
[2024-07-01] VITALS (9 sets, daily range): BP systolic 103–156; BP diastolic 62–88; PULSE 77–132; RESP 17–20; TEMP 97.6–98.6; O2SAT 93–98
[2024-07-01] MEDS: AMIODARONE BOLUS KIT 100 ML IV ONE (11:24)
[2024-07-01] MEDS: AMIODARONE 360mg/200mL PREMIX 200 ML IV ONE (11:37)
--- NOTE | 2024-07-01 12:59 | DVHPN2 ---
Subjective The patient is seen and examined at bedside. Amiodarone drip has switch to pill. Reviewed: Care Plan, H&P, Labs, Medications, Previous Orders, Radiology Changes from previous H/P or p: No Changes Cardiovascular: Chest Pain, Palpitations Respiratory: Shortness of breath Objective Vitals Vital Signs Date Time Temp Pulse Resp B/P (MAP) Pulse Ox O2 Delivery O2 Flow Rate FiO2 07/01/24 09:56 129 128/79 07/01/24 09:00 97.6 20 97 97.6 07/01/24 08:10 Nasal Cannula* 3 32 Intake/Output Intake and Output 07/01/24 07:00 Intake Total 2500 ml Balance 2500 ml Intake Oral 1500 ml IV Total 1000 ml # Voids 10 General Appearance: Alert, Oriented X3, Cooperative, No acute distress HEENT: Atraumatic, PERRLA, EOMI Neck: Supple Lungs: Clear to auscultation, Normal air movement Cardiovascular: Regular rate, Normal S1, Normal S2, No murmurs, Gallops, Rubs Abdomen: Normal bowel sounds, Soft, No tenderness Neuro: Cranial nerves 3-12 NL Psych/Mental Status: Mental status NL Medications Current Medications Medications Dose Ordered Sig/Zaheer Route Start Time Stop Time Status Last Admin Dose Admin Sodium Chloride 1,000 ml @ 100 mls/hr Q10H IV 06/28/24 12:00 06/30/24 15:07 100 MLS/HR Acetaminophen/ Hydrocodone Bitart 1 tab Q4HP PRN PO 06/28/24 12:00 06/30/24 21:08 1 TAB Acetaminophen 650 mg Q6HP PRN PO 06/28/24 12:00 06/29/24 21:56 650 MG Gabapentin 100 mg TID PO 06/28/24 14:00 07/01/24 05:26 100 MG Citalopram Hydrobromide 40 mg DAILY PO 06/29/24 10:00 07/01/24 09:55 40 MG Metoprolol Succinate 25 mg DAILY PO 06/30/24 10:00 07/01/24 09:56 25 MG Enoxaparin Sodium 100 mg Q12HR SC 06/29/24 22:00 07/01/24 09:57 100 MG Lorazepam 0.5 mg Q4HP PRN IV 06/30/24 13:30 07/01/24 12:22 0.5 MG Laboratory Results Laboratory Tests 06/30/24 06:24 Urinalysis Test 06/28/24 15:20 Urine Color Light-yellow (Yellow) Urine Clarity Clear (Clear) Urine pH 5.0 (5.0-9.0) Urine Specific [place] 1.016 (1.001-1.035) Urine Protein Negative (Negative) Urine Ketones Negative (Negative) Urine Blood Negative /uL (Negative) Urine Nitrite Negative (Negative) Urine Bilirubin Negative (Negative) Urine Urobilinogen Normal mg/dL (Negative) Urine Leukocyte Esterase Negative /uL (Negative) Urine RBC <1 /hpf (0 - 4) Urine Microscopic WBC 1 /HPF (0-5) Urine Squamous Epithelial Cells Few /hpf (<5) Urine Bacteria None seen /hpf (None Seen) Urine Glucose Normal mg/dL (Normal) Microbiology Microbiology Date/Time Source Procedure Growth Status 06/29/24 21:07 Nose MRSA Screen - Final Complete Labs and/or images reviewed: Labs reviewed by me Assessment/Plan Assessment/Plan afib with RVR on eliquis aflutter s/p ablation tobacco use obesity alcohol use chronic hypoxic respiratory failure secondary polycytemia likely from above amio p.o., metop succinate goal rate <110 transition to oral once rate controlled seen by cardio nicotine patches euvolemic watch for withdrawal therapeutic lovenox resume home meds keep K 4 Ph 3 Mg 2 diet cardiac Continuing current management. Discharge planning. This medical document was created using an electronic medical record system with [employer] direct computerized dictation system. Although this document has been carefully reviewed, there may still be some phonetic and typographical errors. These areas are purely typographical due to imperfections of the software programs, and do not reflect any compromise in the patient's medical care. Plan discussed with: Patient My Orders Orders - AIDEE CUEVAS MD Procedure Category Date Status Time Lorazepam 2mg/Ml Inj PHA 06/30/24 In Process (Ativan Inj) 13:30 Date of Service: Jul 01, 2024 Billing Provider: AIDEE CUEVAS MD Common Visit Codes: [id number] INP/OBS CARE(HIGH) AIDEE CUEVAS MD Jul 01, 2024 12:59
[2024-07-01] MEDS: AMIODARONE 360mg/200mL PREMIX 200 ML IV SCH (17:01)
[2024-07-02] VITALS (7 sets, daily range): BP systolic 98–135; BP diastolic 67–94; PULSE 115–122; RESP 17–20; TEMP 97.8–98.3; O2SAT 90–96
--- NOTE | 2024-07-02 10:11 | DVHPN2 ---
Progress Note Date Seen: Jul 02, 2024 Medical Necessity Reason Pt with a Central, PICC or Fol: No Objective vital signs Vital Sign Date Time Temp Pulse Resp B/P (MAP) Pulse Ox O2 Delivery O2 Flow Rate FiO2 07/02/24 09:39 122 116/94 07/02/24 08:15 19 90 Room Air* 0 21 07/02/24 05:00 97.8 97.8 Total Intake and Output 07/01/24 07/01/24 07/02/24 15:00 23:00 07:00 Intake Total 375 ml 2300 ml Balance 375 ml 2300 ml medications Current Medications Medications Dose Ordered Sig/Zaheer Route Start Time Stop Time Status Last Admin Dose Admin Sodium Chloride 1,000 ml @ 100 mls/hr Q10H IV 06/28/24 12:00 07/02/24 05:12 100 MLS/HR Acetaminophen/ Hydrocodone Bitart 1 tab Q4HP PRN PO 06/28/24 12:00 07/01/24 17:18 1 TAB Acetaminophen 650 mg Q6HP PRN PO 06/28/24 12:00 06/29/24 21:56 650 MG Gabapentin 100 mg TID PO 06/28/24 14:00 07/02/24 06:26 100 MG Citalopram Hydrobromide 40 mg DAILY PO 06/29/24 10:00 07/02/24 09:38 40 MG Metoprolol Succinate 25 mg DAILY PO 06/30/24 10:00 07/02/24 09:39 25 MG Enoxaparin Sodium 100 mg Q12HR SC 06/29/24 22:00 07/02/24 09:39 100 MG Lorazepam 0.5 mg Q4HP PRN IV 06/30/24 13:30 07/02/24 08:26 0.5 MG Examination: GENERAL:Abnormal, HEENT:Abnormal, LUNGS:Abnormal, CVS:Abnormal, ABDOMEN:Abnormal laboratory and microbiology Laboratory Tests 06/30/24 06:24 Test 06/30/24 06:24 Range/Units Serum Glucose 98 74-106 mg/dL Microbiology Date/Time Source Procedure Growth Status 06/29/24 21:07 Nose MRSA Screen - Final Complete Problem List/Assessment/Plan Problem List/Assessment/Plan recurrent AFL hx of afib s/p ablation obesity copd htn amio bolus resume multaq outpt EP eval cont doac spoke to her EP she has appt in 1 week dc home on amiodarone 400 mg po bid cont doac cont BB Plan discussed with: Patient My Orders My Orders Orders - DENISE SANTOS MD Procedure Category Date Status Time Amiodarone PHA 07/01/24 In Process 360mg/200ml Premix 17:00 Dietary Evaluation Review Comments: 1) Continue to promote optimate PO intake 2) Collect HbA1c 3) Refer to outpatient RD for weight management 4) F/u with cardiology 5) Continue current plan of care Expected Outcomes/Goals: 1) appetite and labs to improve 2) f/u in 5 days Date of Service: Jul 02, 2024 Billing Provider: DENISE SANTOS MD Common Visit Codes: NOT BILLABLE DENISE SANTOS MD Jul 02, 2024 10:11
[2024-07-02] MEDS ORDERED: AMIO200T13 PO (14:19)
[2024-07-02] MEDS ORDERED: CLON0.5T3 PO (14:19)
--- NOTE | 2024-07-02 14:24 | DVHDS2 ---
Discharge Summary Date of Admission Jun 28, 2024 at 11:55 Date of Discharge: Jul 02, 2024 Labs/Diagnostic Data: Laboratory Results Test 06/30/24 06:24 06/29/24 06:11 06/28/24 15:20 White Blood Count 7.9 10^3/uL (4.4-10.8) Red Blood Count 5.25 10^6/uL (4.0-5.20) Hemoglobin 16.6 g/dL (12.2-16.2) Hematocrit 49.3 % (36.0-46.0) Mean Corpuscular Volume 93.9 fL (80.0-100.0) Mean Corpuscular Hemoglobin 31.6 pg (28.0-32.0) Mean Corpuscular Hemoglobin Concent 33.7 g/dL (32.0-36.0) Red Cell Distribution Width 14.1 % (11.8-14.3) Platelet Count 181 10^3/uL (140-450) Mean Platelet Volume 7.9 fL (6.9-10.8) Neutrophils (%) (Auto) 60.7 % (37.0-80.0) Lymphocytes (%) (Auto) 29.1 % (10.0-50.0) Monocytes (%) (Auto) 8.1 % (0.0-12.0) Eosinophils (%) (Auto) 1.5 % (0.0-7.0) Basophils (%) (Auto) 0.6 % (0.0-2.0) Neutrophils # (Auto) 4.8 10 ^3/uL (1.6-8.6) Lymphocytes # (Auto) 2.3 10 ^3/uL (0.4-5.4) Monocytes # (Auto) 0.6 10 ^3/uL (0-1.3) Eosinophils # (Auto) 0.1 10 ^3/uL (0-0.8) Basophils # (Auto) 0 10 ^3/uL (0-0.2) Nucleated Red Blood Cells 0.2 % Sodium Level 141 mmol/L (136-145) Potassium Level 4.3 mmol/L (3.5-5.1) Chloride Level 107 mmol/L (98-107) Carbon Dioxide Level 29 mmol/L (20-31) Anion Gap 5 (5-15) Blood Urea Nitrogen 11 mg/dL (9-23) Creatinine 0.67 mg/dL (0.550-1.02) Glomerular Filtration Rate Calc 99 mL/min (>90) BUN/Creatinine Ratio 16.4 (10.0-20.0) Serum Glucose 98 mg/dL (74-106) Calcium Level 9.5 mg/dL (8.7-10.4) Phosphorus Level 4.0 mg/dL (2.4-5.1) Magnesium Level 2.0 mg/dL (1.6-2.6) Total Bilirubin 0.6 mg/dL (0.2-1.0) Aspartate Amino Transferase (AST) 39 U/L (13-40) Alanine Aminotransferase (ALT) 49 U/L (7-40) Alkaline Phosphatase 68 U/L (46-116) Troponin I High Sensitivity 3 ng/L (</=34) Total Protein 6.7 g/dL (5.7-8.2) Albumin 3.8 g/dL (3.2-4.8) Urine Color Light-yellow (Yellow) Urine Clarity Clear (Clear) Urine pH 5.0 (5.0-9.0) Urine Specific [place] 1.016 (1.001-1.035) Urine Protein Negative (Negative) Urine Ketones Negative (Negative) Urine Blood Negative /uL (Negative) Urine Nitrite Negative (Negative) Urine Bilirubin Negative (Negative) Urine Urobilinogen Normal mg/dL (Negative) Urine Leukocyte Esterase Negative /uL (Negative) Urine RBC <1 /hpf (0 - 4) Urine Microscopic WBC 1 /HPF (0-5) Urine Squamous Epithelial Cells Few /hpf (<5) Urine Bacteria None seen /hpf (None Seen) Urine Glucose Normal mg/dL (Normal) Other Laboratory Tests 06/30/24 06:24 Brief Hx & Hospital Course: 63 year old female with aflutter s/p ablation admitted for afib with rvr. Seen by cardio. compliant with meds however rate not controlled. on dronaderone at home. started on amio drip, with better controlled although rate above goal. discssed with cardio, to continue taking oral amio at home and BB, scheduled for EP visit 07/09. stable to DC home Condition at Discharge: Good Final Diagnosis/Problems List afib with RVR on eliquis aflutter s/p ablation tobacco use obesity alcohol use chronic hypoxic respiratory failure secondary polycytemia likely from above Discharge Disposition: Home Discharge Instruct/Medications Diet: Consistent carbohydrate, Cardiac 2g Na,low cholest Activity: Light activity Follow Up/Referral: PCP 07/04 EP 07/09 Medications: amiodarone 400mg BID klonopin 45 Discharge Statement: "Patient was advised to return to the ER or call 911 if any headaches, dizziness, shortness of breath, chest pain, abdominal pain, bleeding, fevers, or worsening of medical condition. Patient was counseled about treatment plan, medications, possible side effects, patientverbalized understanding. All questions were answered to the best of my ability. This discharge took greater then 30 minutes in planning, reviewing documentation, counseling the patient, and discussing with other team members." ASSESSMENT ASSESSMENT Assessment afib with RVR Date of Service: Jul 02, 2024 Billing Provider: NHAN ALVA MD Common Visit Codes: [id number] DISCH DAY >30min NHAN ALVA MD Jul 02, 2024 14:24
[2024-07-02] MEDS: AMIODARONE HCL 200 MG TAB PO ONE (14:43)
== END 2024-07-02 17:53 | disposition home or self-care (01) | DRG 309 ==
LOC: ER 08:35 → OVERFLOW 11:55 → TELE-EAST 06-29 18:45
PROVIDERS: ADMIT Student in an Organized Health Care Education/Training Program; ATTEND Student in an Organized Health Care Education/Training Program
DX: I48.19 Other persistent atrial fibrillation (principal); J96.11 Chronic respiratory failure with hypoxia; I47.10 Supraventricular tachycardia, unspecified; I48.92 Unspecified atrial flutter; E66.9 Obesity, unspecified; I10 Essential (primary) hypertension; F17.210 Nicotine dependence, cigarettes, uncomplicated; F32.A Depression, unspecified; F41.9 Anxiety disorder, unspecified; D75.1 Secondary polycythemia; Z68.38 Body mass index [BMI] 38.0-38.9, adult; Z79.01 Long term (current) use of anticoagulants; Z82.49 Family history of ischemic heart disease and other diseases of the circulatory system; Z83.3 Family history of diabetes mellitus; Z79.891 Long term (current) use of opiate analgesic; Z79.1 Long term (current) use of non-steroidal anti-inflammatories (NSAID); Z79.899 Other long term (current) drug therapy; Y90.9 Presence of alcohol in blood, level not specified
CPT/HCPCS: 36415; 71045; 80048; 80053; 81001; 83735; 84100; 84484; 85025; 87081; 93005; 96365; 96375; 99291; 99292; G0378; J0153

== ENCOUNTER 2024-07-04 15:42 | Inpatient (IN) | payer SELFPAY ==
[~2024-07-04] VITALS: Ht 160 cm; Wt 95.7 kg
[~2024-07-04 15:42] MED LIST changes: +AMIO200T13 PO; +CLON0.5T3 PO; -CYCL-837 PO; -DRON400T; -HYDR-4902 PO; -MELO7.5T7 PO; +PANT40T PO
--- NOTE | 2024-07-04 16:13 | ED.PDOC ---
HPI Comments 63 y/o F BIBA, with PMHX of Hepatitis, DVT, AFIB, Anxiety, and Depression presents to the ED for CC of rapid heart rate. EMS states, patient is coming from a follow-up appointment with PCP where EMS was called due to patient being tachycardic and EKG showing A-FIB RVR. Patient relays, that she was recently hospitalized at [facility] on 06/28/24 for DX:AFIB RVR and has been experiencing palpations with associated shortness of breath since being discharged. Patient complains of current headache. Patient denies active chest pain, nausea, vomiting, or diarrhea. No other symptoms or modifying factors at this time. Chief Complaint: Palpitations Time Seen by MD: 16:00 Primary Care Provider: NASU Reviewed Notes: Nurses Notes, Butter Wrapper Notes, Medications, Allergies Allergies: Coded Allergies: NO KNOWN ALLERGIES (Unverified , 03/26/13) Home Meds Active Scripts Clonazepam (KlonoPIN TABLET) 0.5 Mg Tb, 1 TAB PO DAILY for 7 Days, #7 TAB Prov:NHAN ALVA MD 07/02/24 Amiodarone HCl (Amiodarone HCl) 200 Mg Tab, 400 MG PO BID for 30 Days, #120 TAB Prov:NHAN ALVA MD 07/02/24 Lorazepam (Ativan) 2 Mg Tab, 0.5 TAB PO QPM PRN, #20 TAB Prov:AIDEE CUEVAS MD 05/21/24 Apixaban Base (ELIQUIS) 5 Mg Tab, 5 MG PO BID for 90 Days, #180 TAB Prov:SULMA DIGGS MD 09/26/20 Reported Medications Metoprolol Tartrate (Metoprolol Tartrate) 25 Mg Tab, 1 TAB PO BID, #180 TAB 1 Refill 06/29/24 Pantoprazole Sodium Sesquihydr (Pantoprazole Sodium) 40 Mg Tab, 1 TAB PO BID 06/28/24 Gabapentin (Gabapentin) 100 Mg Cap, 1 CAP PO TID for 90 Days, #180 11/30/23 Citalopram Hydrobromide (Citalopram Hydrobromide) 40 Mg Tab, 40 MG PO DAILY for 30 Days, MG 09/25/20 Discontinued Reported Medications Dronedarone Hydrochloride (Multaq) 400 Mg Tab, 1 TAB PO BID, #180 TAB 1 Refill 06/29/24 Dronedarone Hydrochloride (Multaq) 400 Mg Tab, 200 MG DAILY 05/19/24 Information Source: Patient, Emergency Med Personnel Mode of Arrival: EMS Severity: Moderate Timing: Minutes Duration: Since onset Prehospital treatment: 12 Lead EKG, Accucheck Onset: At Rest Cardiac Risk Factors: Smoker PE Risk Factors: None History of: Similar pain in past, DVT/PE Modifying Factors: Nothing Associated Signs and Symptoms: SOB, Palpitations Past Medical History PAST MEDICAL HISTORY: AFIB, Anxiety, Depression Past Medical History (Other): DVT, HEPATITIS Surgical History: Denies all surgeries SUBPOENA SERVER History: No Pertinent SUBPOENA SERVER History Family History Family History: Reviewed,noncontributory to illness, Family hx of HTN Social History Smoker: Cigarettes, Less Than 1 Pack/Day Alcohol: Rarely Drugs: Denies Drug Use Lives In: Home Constitutional: denies: chills, diaphoresis, fatigue, fever, malaise, sweats, weakness, others EENTM: denies: blurred vision, double vision, ear bleeding, ear discharge, ear drainage, ear pain, ear ringing, eye pain, eye redness, hearing loss, mouth pain, mouth swelling, nasal discharge, nose bleeding, nose congestion, nose pain, photophobia, tearing, throat pain, throat swelling, voice changes, others Respiratory: reports: shortness of breath; denies: cough, hemoptysis, orthopnea, SOB at rest, SOB with excertion, stridor, wheezing, others Cardiovascular: reports: palpitations; denies: chest pain, dizzy spells, diaphoresis, Dyspnea on exertion, edema, irregular heart beat, left arm pain, lightheadedness, PND, syncope, others Gastrointestinal: denies: abdomen distended, abdominal pain, blood streaked bowels, constipated, diarrhea, dysphagia, difficulty swallowing, hematemesis, melena, nausea, poor appetite, poor fluid intake, rectal bleeding, rectal pain, vomiting, others Genitourinary: denies: abnormal vagina bleeding, burning, dyspareunia, dysuria, flank pain, frequency, hematuria, incontinence, pain, , vagina discha rge, urgency, others Neurological: denies: dizziness, fainting, headache, left sided numbness, left sided weakness, numbness, paresthesia, pre-existing deficit, right sided numbness, right sided weakness, seizure, speech problems, tingling, tremors, weakness, others Musculoskeletal: denies: back pain, gout, joint pain, joint swelling, muscle pain, muscle stiffness, neck pain, others Integumetry: denies: bruises, change in color, change in hair/nails, dryness, laceration, lesions, lumps, rash, wounds, others Allergic/Immunocompromised: denies: Difficulty Healing, Frequent Infections, Hives, Itching, others Hematologic/Lymphatic: denies: anemia, blood clots, easy bleeding, easy bruising, swollen glands, others Endocrine: denies: excessive hunger, excessive sweating, excessive thirst, excessive urination, flushing, intolerance to cold, intolerance to heat, unexplained weight gain, unexplained weight loss, others Psychiatric: denies: anxiety, bipolar disorder, depression, hopeless, panic disorder, schizophrenia, sleepless, suicidal, others All Other Systems: Reviewed and Negative Physical Exam General Appearance: Moderate Distress HEENT: Normal ENT Inspection, Pharynx Normal, TMs Normal Neck: Full Range of Motion, Non-Tender, Normal, Normal Inspection Respiratory: Chest Non-Tender, Lungs Clear, No Accessory Muscle Use, No Respiratory Distress, Normal Breath Sounds Cardiovascular: No Edema, No JVD, No Murmur, No Gallop, Tachycardia Breast Exam: Deferred Gastrointestinal: No Organomegaly, Non Tender, No Pulsatile Mass, Normal Bowel Sounds, Soft Genitalia: Deferred Pelvic: Deferred Rectal: Deferred Extremities: No calf tenderness, Normal capillary refill, Normal inspection, Normal range of motion, Non-tender, No pedal edema Musculoskeletal : Apperance: Normal Neurologic: Alert, roll operator II-XII nml as Tested, No Motor Deficits, Normal Affect, Normal Mood, No Sensory Deficits Cerebellar Function: Normal Reflexes: Normal Skin: Dry, Normal Color, Warm Lymphatic: No Adenopathy EKG EKG : Pulse Rate (adult): 129 [place]: Normal Cardiac Rhythm: ST Block: None Hypertrophy: None ST: Normal Was a procedure done? Was a procedure done?: No CP Differential Dx Differential Diagnosis: A-fib Differential Diagnosis: HTN Essential, HTN Accelerated Differential Diagnosis: Chest Wall Pain, Costochondritis X-Ray, Labs, Meds, VS Vital Signs Date Time Temp Pulse Resp B/P (MAP) Pulse Ox O2 Delivery O2 Flow Rate FiO2 07/04/24 17:37 131 134/86 07/04/24 17:31 131 20 95 Room Air* 0 21 07/04/24 17:27 98.0 131 20 134/86 (102) 95 98.0 07/04/24 16:37 129 07/04/24 16:16 97.0 130 19 138/88 (105) 97 07/04/24 16:13 129 07/04/24 15:45 129 Lab Test 07/04/24 16:19 Range/Units White Blood Count 8.6 4.4-10.8 10^3/uL Red Blood Count 4.97 4.0-5.20 10^6/uL Hemoglobin 15.6 12.2-16.2 g/dL Hematocrit 46.5 H 36.0-46.0 % Mean Corpuscular Volume 93.6 80.0-100.0 fL Mean Corpuscular Hemoglobin 31.3 28.0-32.0 pg Mean Corpuscular Hemoglobin Concent 33.5 32.0-36.0 g/dL Red Cell Distribution Width 14.0 11.8-14.3 % Platelet Count 194 140-450 10^3/uL Mean Platelet Volume 7.9 6.9-10.8 fL Neutrophils (%) (Auto) 60.5 37.0-80.0 % Lymphocytes (%) (Auto) 27.9 10.0-50.0 % Monocytes (%) (Auto) 9.1 0.0-12.0 % Eosinophils (%) (Auto) 1.6 0.0-7.0 % Basophils (%) (Auto) 0.9 0.0-2.0 % Neutrophils # (Auto) 5.2 1.6-8.6 10 ^3/uL Lymphocytes # (Auto) 2.4 0.4-5.4 10 ^3/uL Monocytes # (Auto) 0.8 0-1.3 10 ^3/uL Eosinophils # (Auto) 0.1 0-0.8 10 ^3/uL Basophils # (Auto) 0.1 0-0.2 10 ^3/uL Nucleated Red Blood Cells 0.1 % Sodium Level 139 136-145 mmol/L Potassium Level 4.2 3.5-5.1 mmol/L Chloride Level 103 98-107 mmol/L Carbon Dioxide Level 28 20-31 mmol/L Anion Gap 8 5-15 Blood Urea Nitrogen 13 9-23 mg/dL Creatinine 0.71 0.550-1.02 mg/dL Glomerular Filtration Rate Calc 97 >90 mL/min BUN/Creatinine Ratio 18.3 10.0-20.0 Serum Glucose 88 74-106 mg/dL Calcium Level 9.6 8.7-10.4 mg/dL Troponin I High Sensitivity 3 L </=34 ng/L Current Medications Medications (Trade) Dose Ordered Sig/Zaheer Route Start Time Stop Time Status Last Admin Aspirin 162 mg ONCE ONCE PO 07/04/24 16:15 07/04/24 16:16 DC 07/04/24 17:37 Metoprolol Tartrate (Lopressor) 5 mg Q15M ONCE IV 07/04/24 16:15 07/04/24 16:16 DC 07/04/24 17:37 Lorazepam (Ativan Inj) 1 mg ONCE ONCE IV 07/04/24 17:30 07/04/24 17:31 DC 07/04/24 17:37 CXR: FINDINGS: LUNGS AND PLEURAL SPACES: Mild pulmonary congestion. No consolidation. No pneumothorax. HEART: Unremarkable. No cardiomegaly. MEDIASTINUM: Unremarkable. Normal mediastinal contour. BONES/JOINTS: Unremarkable. No acute fracture. OTHER FINDINGS: . IMPRESSION: Mild pulmonary congestion. ATED BY: LUL TRONCOSO MD DICTATED DATE/TIME: 07/04/241650 SIGNED BY: LUL TRONCOSO MD SIGNED DATE/TIME: 07/04/241650 CC: The patient was given aspirin 162 mg by mouth. The patient was given Lopressor 5 mg IV push for the tachycardia The patient also felt very anxious so was given Ativan 1 mg IV push The troponin level is within normal limits. The CBC and chemistry panel are within normal limits The troponin levels negative At this time, the patient was being admitted to the hospitalist Images Reviewed?: Images reviewed and evaluated by me Time of 1ST Reevaluation: 16:30 Reevaluation 1ST: Unchanged Time of 2ND Reevaluation: 18:07 Reevaluation 2ND: Improved Patient Education/Counseling: Diagnosis, Treatment, Prognosis Family Education/Counseling: No Family Present Departure 1 Departure Time of Disposition: 18:06 Impression: Primary Impression: Generalized weakness Additional Impressions: Chest discomfort Myocardial ischemia Disposition: 09 ADMITTED INPATIENT Admit to: Tele Condition: Fair Critical Care Note Critical Care Time?: Yes (45 min-critical care time only) Stability Stability form required: Yes Unstable for transfer: Telemetry monitoring (Telemetry monitoring required), ED Physician Assesment (Clinical assesment) Heart Score Heart Score: Heart Score Response (Comments) Value History Moderate Suspicious 1 EKG Repolarization Disturb 1 Age 45-64 1 Risk Factors 1 or 2 risk factors 1 Troponin Normal limit 0 Total 4 I personally scribed for AZAM BHAGAT MD ([email or web address]) on 07/04/24 at 16:13. Electronically submitted by Shanna Wilson ([email or web address]). I personally scribed for AZAM BHAGAT MD ([email or web address]) on 07/04/24 at 17:17. Electronically submitted by Shanna Wilson ([email or web address]). AZAM BHAGAT MD Jul 04, 2024 16:13
[2024-07-04 16:34] LABS: Basophils # (auto) 0.1 10 ^3/uL (0-0.2); Basophils % (auto) 0.9 % (0.0-2.0); Eosinophils # (auto) 0.1 10 ^3/uL (0-0.8); Eosinophils % (auto) 1.6 % (0.0-7.0); Hematocrit 46.5 % (36.0-46.0); Hemoglobin 15.6 g/dL (12.2-16.2); Lymphocytes # (auto) 2.4 10 ^3/uL (0.4-5.4); Lymphocytes % (auto) 27.9 % (10.0-50.0); Mean Corpuscular Hemoglobin 31.3 pg (28.0-32.0); Mean Corpuscular Hgb Conc. 33.5 g/dL (32.0-36.0); Mean Corpuscular Volume 93.6 fL (80.0-100.0); Monocytes # (auto) 0.8 10 ^3/uL (0-1.3); Monocytes % (auto) 9.1 % (0.0-12.0); Neutrophils # (auto) 5.2 10 ^3/uL (1.6-8.6); Neutrophils % (auto) 60.5 % (37.0-80.0); Nucleated Red Blood Cells % 0.1 %; Platelet Count (auto) 194 10^3/uL (140-450); Red Blood Cells 4.97 10^6/uL (4.0-5.20); White Blood Cell 8.6 10^3/uL (4.4-10.8)
[2024-07-04 16:40] LABS: Chloride 103 mmol/L (98-107); Potassium 4.2 mmol/L (3.5-5.1); Sodium 139 mmol/L (136-145)
[2024-07-04 16:41] LABS: Anion Gap 8 (5-15); Carbon Dioxide 28 mmol/L (20-31)
[2024-07-04 16:42] LABS: Calcium 9.6 mg/dL (8.7-10.4)
[2024-07-04 16:47] LABS: BUN/Creatinine Ratio 18.3 (10.0-20.0); Blood Urea Nitrogen 13 mg/dL (9-23); Glucose 88 mg/dL (74-106)
--- NOTE | 2024-07-04 16:54 | DVH ---
EXAM: XR Chest, 1 View CLINICAL INDICATION: pain TECHNIQUE: Frontal view of the chest. COMPARISON: XY CHEST PORTABLE on DOS: 06/28/24, XY CHEST PORTABLE on DOS: 04/15/24, XY CHEST PORTABLE on DOS: 12/24/23, XY CHEST PORTABLE on DOS: 11/29/23, XY CHEST PORTABLE on DOS: 11/27/23 FINDINGS: LUNGS AND PLEURAL SPACES: Mild pulmonary congestion. No consolidation. No pneumothorax. HEART: Unremarkable. No cardiomegaly. MEDIASTINUM: Unremarkable. Normal mediastinal contour. BONES/JOINTS: Unremarkable. No acute fracture. OTHER FINDINGS: . IMPRESSION: Mild pulmonary congestion.
[2024-07-04 17:31] VITALS: PULSE 131; RESP 20; O2SAT 95
[2024-07-04] MEDS: METOPROLOL TARTRATE 1MG/1ML-5ML VIAL IV ONE (17:37)
[2024-07-04] MEDS: ASPirin 81 mg TAB PO ONE (17:37)
[2024-07-04] MEDS: LORazepam 2MG/ML-1ML VIAL IV ONE (17:37)
--- NOTE | 2024-07-04 18:25 | ECG ---
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
--- NOTE | 2024-07-04 18:52 | ECG ---
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
--- NOTE | 2024-07-04 18:53 | ECG ---
[facility] Test Date: 2024-07-04 Test Time: 18:21:52 Pat Name: ALESSIA WHITMORE Department: ED Room: 0287T Gender: F Financial Aid Officer: MAYA : 1960 Requested By: AZMA BHAGAT Order Number: [id number] Reading MD: Rebel Levy Measurements Intervals [place] Rate: 129 P: 94 IN: 144 QRS: 47 QRSD: 133 T: 31 QT: 309 QTc: 453 Interpretive Statements Sinus tachycardia Right bundle branch block Inferior infarct, acute Lateral leads are also involved Electronically Signed On 07-07-2024 19:03:01 PDT by Rebel Levy Please click the below link to view image of tracing.
[2024-07-04] MEDS ORDERED: ONDANSETRON HCL 4 MG/2 ML VIAL IV PRN (19:00)
[2024-07-04] MEDS ORDERED: ACETAMINOPHEN 325 MG TAB PO PRN (19:00)
[2024-07-04] MEDS ORDERED: MORPHINE SULFATE INJ 2 MG/ml SYRG IV PRN (19:00)
[2024-07-04] MEDS ORDERED: NITROGLYCERIN 0.4 MG SL TAB SL PRN (19:00)
[2024-07-04] MEDS: AMIODARONE HCL 200 MG TAB PO SCH (19:54)
[2024-07-04] MEDS: METOPROLOL TARTRATE 50 MG TAB PO ONE (19:55)
[2024-07-04 21:33] VITALS: PULSE 123; RESP 16
[2024-07-04] MEDS: APIXABAN 5 MG TAB PO SCH (21:34)
[2024-07-04] MEDS: GABAPENTIN 100 MG CAP PO SCH (21:34)
[2024-07-05] VITALS (8 sets, daily range): BP systolic 105–143; BP diastolic 71–92; PULSE 100–126; RESP 16–20; TEMP 97–98.7; O2SAT 90–96
[2024-07-05] MEDS: HYDROcodone-ACET 5/325MG TAB PO PRN (00:11)
--- NOTE | 2024-07-05 04:29 | DVHHP2 ---
History of Present Illness Reason for Visit: Elevated heart rate History of Present Illness 63-year-old female presents for evaluation of elevated heart rate. Patient reports being seen by her primary care provider today and was advised to present to the emergency department for evaluation of AFib with RVR. Patient reports oc casional palpitations. She states recently being discharged after being treated for AFib. Patient is status post cardiac ablation on 06/01/2024. Denies chest pain at the moment. Reports mild shortness for breath. No nausea or vomiting. No other acute complaints. Past Medical History AFib, hypertension, depression, DVT Past Surgical History Denies Family History Noncontributory Smoke: <1 pack per day ALCOHOL: occassional Drugs: None Lives: with Family Review of Systems Review of Systems Review of systems are currently negative otherwise addressed in HPI. Allergies: Coded Allergies: NO KNOWN ALLERGIES (Unverified , 03/26/13) Medications Current Medications Medications Dose Ordered Sig/Zaheer Route Start Time Stop Time Status Last Admin Dose Admin Metoprolol Tartrate 25 mg BID PO 07/05/24 10:00 Amiodarone HCl 400 mg Q12HR PO 07/04/24 19:00 07/04/24 21:34 400 MG Apixaban 5 mg BID PO 07/04/24 22:00 07/04/24 21:34 5 MG Gabapentin 100 mg BID PO 07/04/24 22:00 07/04/24 21:34 100 MG Ondansetron HCl 4 mg Q4HP PRN IV 07/04/24 19:00 Acetaminophen 650 mg Q6HP PRN PO 07/04/24 19:00 Nitroglycerin 0.4 mg Q5MINP PRN SL 07/04/24 19:00 Morphine Sulfate 2 mg Q30M PRN IV 07/04/24 19:00 Acetaminophen/ Hydrocodone Bitart 1 tab Q6HPRN PRN PO 07/04/24 21:15 07/05/24 00:11 1 TAB Exam Vital Signs Vital Signs Date Time Temp Pulse Resp B/P (MAP) Pulse Ox O2 Delivery O2 Flow Rate FiO2 07/05/24 01:09 97.0 126 19 117/82 (94) 95 97.0 07/04/24 21:33 Room Air* 0 21 Exam Gen: 63-year-old female Skin: Warm, dry, normal color and texture, no rash. HEENT: Normocephalic atraumatic, mucous membranes moist and pink. Neck: Cervical and supraclavicular nodes normal without enlargement, trachea is midline, thyroid gland is normal without masses. Pulmonary: Clear to auscultation and percussion bilaterally. Cardiac: Irregular rhythm Abdomen: Soft, nontender, nondistended, bowel sounds present all 4 quadrants, no guarding, no rigidity, no organomegaly. Extremities: No cyanosis, clubbing, no edema Neuro: Cranial nerves II through XII grossly intact, normal affect and speech, no focal motor deficits. Labs/Xrays ORDERING PHYSICIAN: NORMAN LANDEROS PROCEDURE(s): ECIDC - ECHO 2D MODE CARDIAC DOP REASON: Evaluate cardiac function ORDER NUMBER(s): [id number], ACCESSION NUMBER(s): [id number] APPROVED REPORT EXAM: Two-dimensional and M-mode echocardiogram with Doppler and color Doppler. Blood Pressure: 108/42 mmHg INDICATION Evaluate cardiac function RISK FACTORS Obesity: Height: 5'3", Weight: 210 DIMENSIONS LVDd 4.5 (3.8-5.7cm) LA (2D) 4.2 (1.9-4.0cm) Aortic Root 3.3 (2.0- 3.7cm) LVDs 3.1 (2.5-4.0cm) LA (MM) (1.9-4.0cm) Aortic Cusp Exc 1.3 (1.5- 2.0cm) EF (%) 60.0 (55-70%) Rt. Atrium 3.8 (1.9-4.0cm) Asc. Aorta cm IVSd 1.1 (0.7-1.1cm) RV (D) 3.6 (1.8-2.4cm) PWd 1.0 (0.7-1.1cm) Mitral Valve Mitral Mitral Stenosis E wave 1.02m/s MV Mean GR. 2mmHg A wave 0.97m/s MV Peak GR. 4mmHg E/A ratio 1.1 2D MVA cm2 DECEL Time 267ms PRESS 1/2 Time 127ms IVRT ms Dop MVA 1.73cm2 Aortic Valve Aortic Valve Aortic Stenosis V1 1.37m/s AO Mean GR. 7mmHg V2 1.74m/s AO Peak GR. 12mmHg LVOT Diameter 1.8 (1.8-2.4cm) Doppler JOSELUIS 2.00cm2 Pulmonic Valve V2 0.99m/s Tricuspid Valve TR Velocity 2.71m/s RVSP 32mmHg LEFT VENTRICLE The left ventricle is of normal size. Wall thickness is normal. Ejection fraction is normal and is estimated at 60%. There is no regional wall motion abnormalities. There is grade II diastolic dysfunction. E to E prime ratio is elevated suggestive of high left-sided filling pressure. RIGHT VENTRICLE The right ventricle is of normal size. Systolic function is normal. ATRIA There is mild biatrial enlargement. Intra-atrial septum is not well visualized. MITRAL VALVE There is mild to moderate mitral annular calcification. No significant mitral regurgitation. No significant mitral stenosis. PULMONIC VALVE Likely normal. TRICUSPID VALVE Normal structure and function. There is mild tricuspid regurgitation. PA systolic pressure is estimated at 30-35 mm Hg. AORTIC VALVE Trileaflet in morphology. Leaflets are sclerotic. No significant stenosis or regurgitation. GREAT VESSELS The aortic root is of normal size. Proximal ascending aorta isn't visualized. PERICARDIAL EFFUSION No significant pericardial effusion. IVC is of normal size and collapses normally with inspiration. Other Information Technically limited study due to body habitus. Conclusion Normal left ventricular size and systolic function. Ejection fraction is estimated at 60%. Normal right ventricular size and systolic function. Grade II diastolic dysfunction with evidence of elevated left-sided filling pressure. No hemodynamically significant valvular disease. Mild to moderate mitral annular calcification and aortic valve sclerosis. PA systolic pressure is estimated at 30-35 mm Hg. SIGNED BY: MARLENA MULLINS MD SIGNED DATE/TIME: 05/19/24 1201 CC: ORDERING PHYSICIAN: AZAM BHAGAT MD PROCEDURE(s): CXRP - CHEST PORTABLE REASON: pain ORDER NUMBER(s): [id number], ACCESSION NUMBER(s): [id number] EXAM: XR Chest, 1 View CLINICAL INDICATION: pain TECHNIQUE: Frontal view of the chest. COMPARISON: XY CHEST PORTABLE on DOS: 06/28/24, XY CHEST PORTABLE on DOS: 04/15/24, XY CHEST PORTABLE on DOS: 12/24/23, XY CHEST PORTABLE on DOS: 11/29/23, XY CHEST PORTABLE on DOS: 11/27/23 FINDINGS: LUNGS AND PLEURAL SPACES: Mild pulmonary congestion. No consolidation. No pneumothorax. HEART: Unremarkable. No cardiomegaly. MEDIASTINUM: Unremarkable. Normal mediastinal contour. BONES/JOINTS: Unremarkable. No acute fracture. OTHER FINDINGS: . IMPRESSION: Mild pulmonary congestion. Labs Test 07/04/24 19:02 07/04/24 16:19 Range/Units D-Dimer, Quantitative 0.51 H 0.0-0.49 mg/L FEU Troponin I High Sensitivity 3 L </=34 ng/L White Blood Count 8.6 4.4-10.8 10^3/uL Red Blood Count 4.97 4.0-5.20 10^6/uL Hemoglobin 15.6 12.2-16.2 g/dL Hematocrit 46.5 H 36.0-46.0 % Mean Corpuscular Volume 93.6 80.0-100.0 fL Mean Corpuscular Hemoglobin 31.3 28.0-32.0 pg Mean Corpuscular Hemoglobin Concent 33.5 32.0-36.0 g/dL Red Cell Distribution Width 14.0 11.8-14.3 % Platelet Count 194 140-450 10^3/uL Mean Platelet Volume 7.9 6.9-10.8 fL Neutrophils (%) (Auto) 60.5 37.0-80.0 % Lymphocytes (%) (Auto) 27.9 10.0-50.0 % Monocytes (%) (Auto) 9.1 0.0-12.0 % Eosinophils (%) (Auto) 1.6 0.0-7.0 % Basophils (%) (Auto) 0.9 0.0-2.0 % Neutrophils # (Auto) 5.2 1.6-8.6 10 ^3/uL Lymphocytes # (Auto) 2.4 0.4-5.4 10 ^3/uL Monocytes # (Auto) 0.8 0-1.3 10 ^3/uL Eosinophils # (Auto) 0.1 0-0.8 10 ^3/uL Basophils # (Auto) 0.1 0-0.2 10 ^3/uL Nucleated Red Blood Cells 0.1 % Sodium Level 139 136-145 mmol/L Potassium Level 4.2 3.5-5.1 mmol/L Chloride Level 103 98-107 mmol/L Carbon Dioxide Level 28 20-31 mmol/L Anion Gap 8 5-15 Blood Urea Nitrogen 13 9-23 mg/dL Creatinine 0.71 0.550-1.02 mg/dL Glomerular Filtration Rate Calc 97 >90 mL/min BUN/Creatinine Ratio 18.3 10.0-20.0 Serum Glucose 88 74-106 mg/dL Calcium Level 9.6 8.7-10.4 mg/dL Assessment/Plan Assessment/Plan Assessment AFib with RVR Secondary coagulopathy Hypertension Plan Admit the patient to telemetry to the hospitalist Cardiology consultation Resume home medications Continue treatment per orders. Plan discussed with: Patient My Orders Orders - TIGIST MULLEN Procedure Category Date Status Time Metoprolol Tartrate PHA 07/05/24 In Process Tablet (Lopressor Ta 10:00 Amiodarone Tablet PHA 07/04/24 In Process (Cordarone Tablet) 19:00 Apixaban (Eliquis) PHA 07/04/24 In Process 22:00 Gabapentin Capsule PHA 07/04/24 In Process (Neurontin Capsule) 22:00 Basic Metabolic Panel LAB 07/05/24 Logged 04:00 Admit ADMIT 07/04/24 Transmitted 18:52 Ondansetron Hcl PHA 07/04/24 In Process (Zofran) 19:00 Condition: Fair HOANG 07/04/24 In Process 18:52 Acetaminophen Tablet PHA 07/04/24 In Process (Tylenol Tablet) 19:00 Bedrest With Bathroom HOANG 07/04/24 In Process Privileg 18:52 Nitroglycerin PHA 07/04/24 In Process Sublingual (Ntrostat 19:00 Morphine Sulfate PHA 07/04/24 In Process Injection 19:00 Stat Ekg For Chest HOANG 07/04/24 In Process Pain 18:52 Notify Md Of Changes HOANG 07/04/24 In Process From Base 18:52 Vp For [facility] 07/04/24 In Process 24 Hours 18:52 Emergency Dysrhythmia [facility] 07/04/24 In Process Protocol 18:52 Rhythm Strips Once HOANG 07/04/24 In Process Every Shift 18:52 Oxygen By Nasal RT 07/04/24 Transmitted Cannula 18:52 Hydrocodone-Acet PHA 07/04/24 In Process 5/325mg Tab ([place] 21:15 Mrsa Screen MELY 07/05/24 Uncollected 00:10 * Cardiology Consult CONS 07/05/24 Transmitted 04:25 Date of Service: Jul 04, 2024 Billing Provider: TIGIST MULLEN Common Visit Codes: [id number] INP/OBS CARE (HIGH) TIGIST MULLEN Jul 05, 2024 04:29
[2024-07-05 07:51] LABS: Chloride 103 mmol/L (98-107); Potassium 4.6 mmol/L (3.5-5.1); Sodium 141 mmol/L (136-145)
[2024-07-05 07:52] LABS: Anion Gap 5 (5-15); Calcium 9.5 mg/dL (8.7-10.4)
[2024-07-05 07:53] LABS: Carbon Dioxide 33 mmol/L (20-31)
[2024-07-05 07:57] LABS: BUN/Creatinine Ratio 18.8 (10.0-20.0); Blood Urea Nitrogen 13 mg/dL (9-23); Glucose 83 mg/dL (74-106)
[2024-07-05] MEDS: METOPROLOL TARTRATE 25 MG TAB PO SCH (08:38)
--- NOTE | 2024-07-05 12:08 | DVHPN2 ---
Reviewed: Care Plan, H&P, Labs, Medications, Previous Orders, Radiology Changes from previous H/P or p: No Changes Objective Vitals Vital Signs Date Time Temp Pulse Resp B/P (MAP) Pulse Ox O2 Delivery O2 Flow Rate FiO2 07/05/24 09:00 97.7 118 16 115/80 (92) 90 97.7 07/05/24 08:00 Room Air* 0 21 Intake/Output Intake and Output 07/05/24 07:00 Intake Total 250 ml Balance 250 ml Intake Oral 250 ml # Voids 1 Medications Current Medications Medications Dose Ordered Sig/Zaheer Route Start Time Stop Time Status Last Admin Dose Admin Metoprolol Tartrate 25 mg BID PO 07/05/24 10:00 07/05/24 08:38 25 MG Amiodarone HCl 400 mg Q12HR PO 07/04/24 19:00 07/05/24 08:39 400 MG Apixaban 5 mg BID PO 07/04/24 22:00 07/05/24 08:38 5 MG Gabapentin 100 mg BID PO 07/04/24 22:00 07/05/24 08:38 100 MG Ondansetron HCl 4 mg Q4HP PRN IV 07/04/24 19:00 Acetaminophen 650 mg Q6HP PRN PO 07/04/24 19:00 Nitroglycerin 0.4 mg Q5MINP PRN SL 07/04/24 19:00 Morphine Sulfate 2 mg Q30M PRN IV 07/04/24 19:00 Acetaminophen/ Hydrocodone Bitart 1 tab Q6HPRN PRN PO 07/04/24 21:15 07/05/24 00:11 1 TAB Laboratory Results Laboratory Tests 07/04/24 16:19 07/05/24 06:10 Chemistry Test 07/04/24 16:19 07/05/24 06:10 Calcium Level 9.6 mg/dL (8.7-10.4) 9.5 mg/dL (8.7-10.4) Coagulation Test 07/04/24 19:02 D-Dimer, Quantitative 0.51 mg/L FEU (0.0-0.49) H Labs and/or images reviewed: Labs reviewed by me, Image(s) reviewed by me Assessment/Plan Assessment/Plan Palpitations secondary to AFib: Consult for arts therapist afib with RVR on eliquis metoprolol amiodarone a flutter s/p ablation 06/01/2024 Chronic Current tobacco use: Counseling nicotine patch obesity Hypertension Depression History of DVT alcohol abuse counseling chronic hypoxic respiratory failure secondary polycytemia likely from above Patient was Discharged home three days ago from this hospital on 07/02/2024 Plan discussed with: Patient Date of Service: Jul 05, 2024 Billing Provider: BRUCE CALLAWAY MD Common Visit Codes: [id number] INP/OBS CARE(HIGH) BRUCE CALLAWAY MD Jul 05, 2024 12:08
--- NOTE | 2024-07-05 12:23 | DVHINCON2 ---
NORMAN KESSLER [facility] 07/05/24 1223: Date Seen: Jul 05, 2024 Referring Physician BILL Fulton Reason for Consultation Aflutter History of Present Illness This is a 63-year-old female patient who presents to the emergency room with chief complaint of palpitations. The patient was recently seen and discharged from this facility three days ago for similar complaints. She reports that on the day of emergency room arrival, she was seen at her primary care doctor's office. After doing her vital signs it was noted that her heart rate was high. The patient was brought to the emergency room from her primary care doctor's office. Initial twelve lead electrocardiogram reveals 2:1 atrial flutter with a right bundle branch block (EKG machine reads rhythm as sinus tachycardia). Troponin levels have been negative. Significant past medical history includes congestive heart failure, atrial fibrillation/atrial flutter (on Eliquis), multiple direct current cardioversions, hepatitis-C, right renal mass, depression, tobacco use and obesity. The patient states that she sees utilization management nurse Dr. Sauceda in the outpatient setting. 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 Gilliam and has undergone a cardiac ablation on 06/08/2024. Past Medical History Past medical history reviewed. No other significant than mentioned above. Past Surgical History Denies Family History: Alcoholism G8 FATHER Diabetes mellitus G8 MOTHER G8 FATHER FH: CHF (congestive heart failure) G8 FATHER Hypertension G8 FATHER Family History Family history reviewed. Social History Patient has a 20 pack-year history, smokes approximately half a pack per day Denies any illicit drug use Denies any alcohol use Allergies: Coded Allergies: NO KNOWN ALLERGIES (Unverified , 03/26/13) Home Meds Active Scripts Clonazepam (KlonoPIN TABLET) 0.5 Mg Tb, 1 TAB PO DAILY for 7 Days, #7 TAB Prov:NHAN ALVA MD 07/02/24 Amiodarone HCl (Amiodarone HCl) 200 Mg Tab, 400 MG PO BID for 30 Days, #120 TAB Prov:NHAN ALVA MD 07/02/24 Lorazepam (Ativan) 2 Mg Tab, 0.5 TAB PO QPM PRN, #20 TAB Prov:AIDEE CUEVAS MD 05/21/24 Apixaban Base (ELIQUIS) 5 Mg Tab, 5 MG PO BID for 90 Days, #180 TAB Prov:SULMA DIGGS MD 09/26/20 Reported Medications Metoprolol Tartrate (Metoprolol Tartrate) 25 Mg Tab, 1 TAB PO BID, #180 TAB 1 Refill 06/29/24 Pantoprazole Sodium Sesquihydr (Pantoprazole Sodium) 40 Mg Tab, 1 TAB PO BID 06/28/24 Gabapentin (Gabapentin) 100 Mg Cap, 1 CAP PO TID for 90 Days, #180 11/30/23 Citalopram Hydrobromide (Citalopram Hydrobromide) 40 Mg Tab, 40 MG PO DAILY for 30 Days, MG 09/25/20 Discontinued Reported Medications Dronedarone Hydrochloride (Multaq) 400 Mg Tab, 1 TAB PO BID, #180 TAB 1 Refill 06/29/24 Dronedarone Hydrochloride (Multaq) 400 Mg Tab, 200 MG DAILY 05/19/24 Home Meds Home medications reviewed. Current Medications Current Medications Medications (Trade) Dose Ordered Sig/Zaheer Route PRN Reason Start Time Stop Time Status Last Admin Metoprolol Tartrate (Lopressor Tablet) 25 mg BID PO 07/05/24 10:00 07/05/24 08:38 Amiodarone HCl (Cordarone Tablet) 400 mg Q12HR PO 07/04/24 19:00 07/05/24 08:39 Apixaban (Eliquis) 5 mg BID PO 07/04/24 22:00 07/05/24 08:38 Gabapentin (Neurontin Capsule) 100 mg BID PO 07/04/24 22:00 07/05/24 08:38 Ondansetron HCl (Zofran) 4 mg Q4HP PRN IV NAUSEA / VOMITING 07/04/24 19:00 Acetaminophen (Tylenol Tablet) 650 mg Q6HP PRN PO PAIN SCALE 1-3 OR TEMP>100.4 07/04/24 19:00 Nitroglycerin (Ntrostat Sublingual) 0.4 mg Q5MINP PRN SL FOR CHEST PAIN 07/04/24 19:00 Morphine Sulfate 2 mg Q30M PRN IV FOR CHEST PAIN 07/04/24 19:00 Acetaminophen/ Hydrocodone Bitart (Stovall 5/325MG Tab) 1 tab Q6HPRN PRN PO MODERATE PAIN (4-6 PAIN SCALE) 07/04/24 21:15 07/05/24 00:11 Lorazepam (Ativan Tablet) 1 mg Q8HP PRN PO ANXIETY 07/05/24 12:15 Nicotine (Nicoderm 21MG/ 24HR) 1 patch DAILY TD 07/06/24 10:00 Review of Systems Constitutional: No symptom reported Ears, Nose, & Throat: No symptom reported Eyes: No symptom reported Neurological: No symptoms reported Pulmonary/Respiratory: Palpitations Cardiovascular: No symptom reported Gastrointestinal: No symptom reported Genitourinary: No symptom reported Musculoskeletal: No symptom reported Skin: No symptom reported Psychiatric: No symptom reported Endocrine: No symptom reported Hematologic/Lymphatic: No symptom reported Vital Signs Vital Signs Date Time Temp Pulse Resp B/P (MAP) Pulse Ox O2 Delivery O2 Flow Rate FiO2 07/05/24 09:00 97.7 118 16 115/80 (92) 90 97.7 07/05/24 08:00 Room Air* 0 21 Physical Exam General Appearance: Cooperative. Obese Pulmonary/Respiratory: Clear, bilateral breaths sounds. Cardiovascular/Chest: Regular rate and rhythm. Peripheral Pulses: 2+ Radial (R). 2+ Radial (L). 2+ Pedal (R). 2+ Pedal (L) Abdominal Exam: Normal bowel sounds. Ankle Exam: Negative ankle edema Lower extremities: Negative lower extremity edema Neuro/Mental Status: A/OX4, coherent. Thoughts/Psych: Normal thought pattern. Appropriate mood and affect. Good judgment and insight. Appearance: No acute distress. Skin Exam: Normal inspection. Normal color. Warm and dry. Labs/Diagnostic Data Labs Test 07/05/24 06:10 07/04/24 19:02 07/04/24 16:19 Range/Units Sodium Level 141 136-145 mmol/L Potassium Level 4.6 3.5-5.1 mmol/L Chloride Level 103 98-107 mmol/L Carbon Dioxide Level 33 H 20-31 mmol/L Anion Gap 5 5-15 Blood Urea Nitrogen 13 9-23 mg/dL Creatinine 0.69 0.550-1.02 mg/dL Glomerular Filtration Rate Calc 99 >90 mL/min BUN/Creatinine Ratio 18.8 10.0-20.0 Serum Glucose 83 74-106 mg/dL Calcium Level 9.5 8.7-10.4 mg/dL D-Dimer, Quantitative 0.51 H 0.0-0.49 mg/L FEU Troponin I High Sensitivity 3 L </=34 ng/L White Blood Count 8.6 4.4-10.8 10^3/uL Red Blood Count 4.97 4.0-5.20 10^6/uL Hemoglobin 15.6 12.2-16.2 g/dL Hematocrit 46.5 H 36.0-46.0 % Mean Corpuscular Volume 93.6 80.0-100.0 fL Mean Corpuscular Hemoglobin 31.3 28.0-32.0 pg Mean Corpuscular Hemoglobin Concent 33.5 32.0-36.0 g/dL Red Cell Distribution Width 14.0 11.8-14.3 % Platelet Count 194 140-450 10^3/uL Mean Platelet Volume 7.9 6.9-10.8 fL Neutrophils (%) (Auto) 60.5 37.0-80.0 % Lymphocytes (%) (Auto) 27.9 10.0-50.0 % Monocytes (%) (Auto) 9.1 0.0-12.0 % Eosinophils (%) (Auto) 1.6 0.0-7.0 % Basophils (%) (Auto) 0.9 0.0-2.0 % Neutrophils # (Auto) 5.2 1.6-8.6 10 ^3/uL Lymphocytes # (Auto) 2.4 0.4-5.4 10 ^3/uL Monocytes # (Auto) 0.8 0-1.3 10 ^3/uL Eosinophils # (Auto) 0.1 0-0.8 10 ^3/uL Basophils # (Auto) 0.1 0-0.2 10 ^3/uL Nucleated Red Blood Cells 0.1 % Assessment 2:1 Atrial flutter History of atrial fibrillation (on Eliquis therapy) Chronic HFimEF, NYHA class III Tobacco use Obesity Plan/Recommendation We will continue with the following plan/recommendations (): * Transthoracic echocardiogram from 05/19/2024 reveals EF 60% * Previous echocardiogram from 11/27/2023 reveals EF of 40% * [id number] VASc score: 2 points * Therapeutic Lovenox while inpatient, transition back to Eliquis when appropriate * Beta-debbie for rate control * Continue antiarrhythmic agent, amiodarone * Monitor and replete electrolytes as needed, keep potassium greater than four and magnesium greater than two * Close Cardiac surveillance The patient seen and examined at bedside with . At this time, we will continue with rate control. We will up titrate beta-blockers as tolerated. We will also consult EP team of for possible cardiac ablation. Thank you for allowing us to care for this patient. Please call with any questions or concerns. Critical care time spent: 44 minutes This medical document was created using an electronic medical record system with voice recognition software and computerized dictation system. Although this document has been carefully reviewed, there might still be some phonetic and typographical errors. Occasional wrong-word or ``sound-alike substitutions may have occurred due to the inherent limitations of voice recognition software. These areas are purely typographical due to imperfections of the software programs and do not reflect any compromise in the patient's medical care. Please read the chart carefully and recognize, using context, where these s ubstitutions have occurred. Plan discussed with: Patient NYHA Physical activity limitations: Class3(Marked) ordinary (activity causes symtoms) Date of Service: Jul 05, 2024 Billing Provider: NORMAN KESSLER [employer]AD[employer] Cardiology Common Codes: [id number] INP/OBS CARE (High) Cardiology Consultation Codes: [id number] CONSULT <45MIN DENG GILBERT DO 07/05/242151: Date Seen: Jul 05, 2024 Family History: Alcoholism G8 FATHER Diabetes mellitus G8 MOTHER G8 FATHER FH: CHF (congestive heart failure) G8 FATHER Hypertension G8 FATHER Allergies: Coded Allergies: NO KNOWN ALLERGIES (Unverified , 03/26/13) Home Meds Active Scripts Clonazepam (KlonoPIN TABLET) 0.5 Mg Tb, 1 TAB PO DAILY for 7 Days, #7 TAB Prov:NHAN ALVA MD 07/02/24 Amiodarone HCl (Amiodarone HCl) 200 Mg Tab, 400 MG PO BID for 30 Days, #120 TAB Prov:NHAN ALVA MD 07/02/24 Lorazepam (Ativan) 2 Mg Tab, 0.5 TAB PO QPM PRN, #20 TAB Prov:AIDEE CUEVAS MD 05/21/24 Apixaban Base (ELIQUIS) 5 Mg Tab, 5 MG PO BID for 90 Days, #180 TAB Prov:SULMA DIGGS MD 09/26/20 Reported Medications Metoprolol Tartrate (Metoprolol Tartrate) 25 Mg Tab, 1 TAB PO BID, #180 TAB 1 Refill 06/29/24 Pantoprazole Sodium Sesquihydr (Pantoprazole Sodium) 40 Mg Tab, 1 TAB PO BID 06/28/24 Gabapentin (Gabapentin) 100 Mg Cap, 1 CAP PO TID for 90 Days, #180 11/30/23 Citalopram Hydrobromide (Citalopram Hydrobromide) 40 Mg Tab, 40 MG PO DAILY for 30 Days, MG 09/25/20 Discontinued Reported Medications Dronedarone Hydrochloride (Multaq) 400 Mg Tab, 1 TAB PO BID, #180 TAB 1 Refill 06/29/24 Dronedarone Hydrochloride (Multaq) 400 Mg Tab, 200 MG DAILY 05/19/24 Plan/Recommendation The patient was seen and examined with Norman Kessler NP. I agree with her Assessment and Plan which was formulated with me. Plan discussed with: Patient Date of Service: Jul 05, 2024 Billing Provider: DENG GILBERT DO Cardiology Common Codes: [id number] INP/OBS CARE (High) NORMAN KESSLER Jul 05, 2024 12:23 DENG GILBERT DO Jul 05, 2024 21:52
[2024-07-05] MEDS: NICOTINE 21MG/24 HR TOPICAL PATCH TD ONE (14:48)
[2024-07-05] MEDS: LORazepam 0.5 MG TAB PO PRN (14:49)
[2024-07-05 16:24] LABS: Magnesium 2.1 mg/dL (1.6-2.6)
[2024-07-05] MEDS: METOPROLOL SUCCINATE XL 50 MG TAB PO ONE (21:21)
[2024-07-05] MEDS: ENOXAPARIN SOD 100 MG/1 ML SYRINGE SC SCH (21:22)
[2024-07-06] VITALS (8 sets, daily range): BP systolic 118–143; BP diastolic 78–99; PULSE 110–124; RESP 17–18; TEMP 97.8–98.7; O2SAT 92–96
[2024-07-06] MEDS: NICOTINE 21MG/24 HR TOPICAL PATCH TD SCH (10:09)
[2024-07-06] MEDS: METOPROLOL SUCCINATE XL 50 MG TAB PO SCH (10:10)
--- NOTE | 2024-07-06 11:23 | DVHPN2 ---
Reviewed: Care Plan, H&P, Labs, Medications, Previous Orders, Radiology Changes from previous H/P or p: No Changes Objective Vitals Vital Signs Date Time Temp Pulse Resp B/P (MAP) Pulse Ox O2 Delivery O2 Flow Rate FiO2 07/06/24 10:10 122 129/87 07/06/24 08:25 98.0 17 94 98.0 07/05/24 20:00 Room Air* 0 21 Intake/Output Intake and Output 07/06/24 07:00 Intake Total 1510 ml Balance 1510 ml Intake Oral 1510 ml # Voids 9 Medications Current Medications Medications Dose Ordered Sig/Zaheer Route Start Time Stop Time Status Last Admin Dose Admin Amiodarone HCl 400 mg Q12HR PO 07/04/24 19:00 07/06/24 10:09 400 MG Gabapentin 100 mg BID PO 07/04/24 22:00 07/06/24 10:09 100 MG Ondansetron HCl 4 mg Q4HP PRN IV 07/04/24 19:00 Acetaminophen 650 mg Q6HP PRN PO 07/04/24 19:00 Nitroglycerin 0.4 mg Q5MINP PRN SL 07/04/24 19:00 Morphine Sulfate 2 mg Q30M PRN IV 07/04/24 19:00 Acetaminophen/ Hydrocodone Bitart 1 tab Q6HPRN PRN PO 07/04/24 21:15 07/05/24 19:31 1 TAB Lorazepam 1 mg Q8HP PRN PO 07/05/24 12:15 07/06/24 10:09 1 MG Nicotine 1 patch DAILY TD 07/06/24 10:00 07/06/24 10:09 1 PATCH Metoprolol Succinate 50 mg DAILY PO 07/06/24 10:00 07/06/24 10:10 50 MG Enoxaparin Sodium 100 mg Q12HR SC 07/05/24 22:00 07/06/24 10:08 100 MG Laboratory Results Laboratory Tests 07/04/24 16:19 07/05/24 06:10 Labs and/or images reviewed: Labs reviewed by me, Image(s) reviewed by me Assessment/Plan Assessment/Plan Palpitations secondary to AFib: Consult for pan helper appreciated History of Afib with RVR on eliquis metoprolol amiodarone Atrial flutter s/p ablation 06/01/2024 Chronic Current tobacco use: Counseling nicotine patch Chronic systolic congestive heart failure NYHA class 3, echo 05/19/2024 60 % ejection fraction obesity Hypertension Depression History of DVT alcohol abuse counseling chronic hypoxic respiratory failure secondary polycytemia likely from above Patient was Discharged home three days ago from this hospital on 07/02/[address] Kuhn for possible ablation Plan discussed with: Patient My Orders Orders - BRUCE CALLAWAY MD Procedure Category Date Status Time Drug Screen LAB 07/05/24 Logged 12:05 Lorazepam Tablet PHA 07/05/24 In Process (Ativan Tablet) 12:15 Nicotine 21mg/24hr PHA 07/06/24 In Process (Nicoderm 21mg/24hr) 10:00 Mrsa Screen MELY 07/05/24 In Process 19:23 Date of Service: Jul 06, 2024 Billing Provider: BRUCE CALLAWAY MD Common Visit Codes: [id number] INP/OBS CARE(HIGH) BRUCE CALLAWAY MD Jul 06, 2024 11:23
--- NOTE | 2024-07-06 15:44 | DVHPN2 ---
Consult Progress Note Subjective Other Systems: Patient remains in atrial flutter with rate in 110-120's on campus monitor Objective vital signs Vital Sign Date Time Temp Pulse Resp B/P (MAP) Pulse Ox O2 Delivery O2 Flow Rate FiO2 07/06/24 12:25 97.8 115 17 128/82 (97) 95 97.8 07/06/24 08:00 Room Air* 0 21 Total Intake and Output 07/05/24 07/05/24 07/06/24 15:00 23:00 07:00 Intake Total 710 ml 800 ml Balance 710 ml 800 ml medications Current Medications Medications Dose Ordered Sig/Zaheer Route Start Time Stop Time Status Last Admin Dose Admin Amiodarone HCl 400 mg Q12HR PO 07/04/24 19:00 07/06/24 10:09 400 MG Gabapentin 100 mg BID PO 07/04/24 22:00 07/06/24 10:09 100 MG Ondansetron HCl 4 mg Q4HP PRN IV 07/04/24 19:00 Acetaminophen 650 mg Q6HP PRN PO 07/04/24 19:00 Nitroglycerin 0.4 mg Q5MINP PRN SL 07/04/24 19:00 Morphine Sulfate 2 mg Q30M PRN IV 07/04/24 19:00 Acetaminophen/ Hydrocodone Bitart 1 tab Q6HPRN PRN PO 07/04/24 21:15 07/05/24 19:31 1 TAB Lorazepam 1 mg Q8HP PRN PO 07/05/24 12:15 07/06/24 10:09 1 MG Nicotine 1 patch DAILY TD 07/06/24 10:00 07/06/24 10:09 1 PATCH Metoprolol Succinate 50 mg DAILY PO 07/06/24 10:00 07/06/24 10:10 50 MG Enoxaparin Sodium 100 mg Q12HR SC 07/05/24 22:00 07/06/24 10:08 100 MG Examination: GENERAL:Normal, LUNGS:Normal, CVS:Normal, NEURO:Normal laboratory and microbiology Laboratory Tests 07/05/24 06:10 07/04/24 16:19 Test 07/05/24 06:10 Range/Units Serum Glucose 83 74-106 mg/dL Problem List/Assessment/Plan Problem List/Assessment/Plan 2:1 Atrial flutter History of atrial fibrillation (on Eliquis therapy) Chronic HFimEF, NYHA class III Tobacco use Obesity Plan/Recommendation (): * Transthoracic echocardiogram from 05/19/2024 reveals EF 60% * Previous echocardiogram from 11/27/2023 reveals EF of 40% * [id number] VASc score: 2 points * Therapeutic Lovenox while inpatient, transition back to Eliquis when appropriate * Beta-debbie for rate control * Continue antiarrhythmic agent, amiodarone * Monitor and replete electrolytes as needed, keep potassium greater than four and magnesium greater than two * Close Cardiac surveillance The patient seen and examined at bedside with . At this time, we will continue with rate control. We will up titrate beta-blockers as tolerated. We will also consult EP team of for possible cardiac ablation. Thank you for allowing us to care for this patient. Please call with any questions or concerns. This medical document was created using an electronic medical record system with voice recognition software and computerized dictation system. Although this document has been carefully reviewed, there might still be some phonetic and typographical errors. Occasional wrong-word or ``sound-alike substitutions may have occurred due to the inherent limitations of voice recognition software. These areas are purely typographical due to imperfections of the software programs and do not reflect any compromise in the patient's medical care. Please read the chart carefully and recognize, using context, where these substitutions have occurred. Plan discussed with: Patient Date of Service: Jul 06, 2024 Billing Provider: NORMAN LANDEROS Common Visit Codes: [id number] INP/OBS CARE(HIGH) NORMAN LANDEROS Jul 06, 2024 15:44
--- NOTE | 2024-07-06 19:43 | DVHINCON2 ---
Date of service: Jul 06, 2024 Referring Physician Bernie Kessler NP Reason for Consultation Atrial Fibrillation/Flutter History of Present Illness This is a 63-year old female known to Dr. Sauceda who initially presented from her primary care physicians office as she was reportedly found to have an elevated pulse rate during routine examination. Upon ED arrival initial 12-lead electrocardiogram was found consistent with a 2:1 atrial flutter with an underlying right bundle branch block subsequently initiated on Amiodarone/Metoprolol and later admitted for further evaluation and management of the underlying arrhythmia. Of note, patient was recently admitted to this facility for similar symptoms and discharged approximately three days prior to initial presentation. She herself does mention she is currently being managed by Electrophysiology services (Dr. Lincoln Gilliam) on an outpatient basis for which she recently underwent cardiac ablation x 1 (06/08/2024) for the underlying paroxysmal atrial fibrillation. At present time of consultation, telemetry reveals atrial flutter (2:1 conduction) with RVR. Does convey intermittent palpitations and shortness of breath. Denies any active chest pain, dizziness, syncope, or any further cardiac related symptoms. As the patient presented and was found to be in a 2:1 atrial flutter with RVR, Electrophysiology services were involved by Interventional Cardiology service request for EP aspects of care. Past Medical History Past medical history includes paroxysmal atrial fibrillation on chronic a nticoagulation, status post multiple direct current cardioversions, status post cardiac ablation (06/08/2024), supraventricular tachycardia, systolic heart failure with improved LVEF, previous history of DVT, hepatitic-C, anxiety, depression, right renal mass, obesity, and current nicotine dependence Echocardiogram: (11/27/2023) revealed LVEF of 40% by visual estimate. arrhythmia decreases overall sensitivity. RV enlarged mild biatrial enlargement. no severe valve abnormalities noted Echocardiogram: (05/19/2024) revealed Normal left ventricular size and systolic function. Ejection fraction is estimated at 60%. Normal right ventricular size and systolic function. Grade II diastolic dysfunction with evidence of elevated left-sided filling pressure. No hemodynamically significant valvular disease. Mild to moderate mitral annular calcification and aortic valve sclerosis. PA systolic pressure is estimated at 30-35 mm Hg. Past Surgical History Reviewed Family History: Alcoholism G8 FATHER Diabetes mellitus G8 MOTHER G8 FATHER FH: CHF (congestive heart failure) G8 FATHER Hypertension G8 FATHER Allergies: Coded Allergies: NO KNOWN ALLERGIES (Unverified , 03/26/13) Home Meds Active Scripts Clonazepam (KlonoPIN TABLET) 0.5 Mg Tb, 1 TAB PO DAILY for 7 Days, #7 TAB Prov:NHAN ALVA MD 07/02/24 Amiodarone HCl (Amiodarone HCl) 200 Mg Tab, 400 MG PO BID for 30 Days, #120 TAB Prov:NHAN ALVA MD 07/02/24 Lorazepam (Ativan) 2 Mg Tab, 0.5 TAB PO QPM PRN, #20 TAB Prov:AIDEE CUEVAS MD 05/21/24 Apixaban Base (ELIQUIS) 5 Mg Tab, 5 MG PO BID for 90 Days, #180 TAB Prov:SULMA DIGGS MD 09/26/20 Reported Medications Metoprolol Tartrate (Metoprolol Tartrate) 25 Mg Tab, 1 TAB PO BID, #180 TAB 1 Refill 06/29/24 Pantoprazole Sodium Sesquihydr (Pantoprazole Sodium) 40 Mg Tab, 1 TAB PO BID 06/28/24 Gabapentin (Gabapentin) 100 Mg Cap, 1 CAP PO TID for 90 Days, #180 11/30/23 Citalopram Hydrobromide (Citalopram Hydrobromide) 40 Mg Tab, 40 MG PO DAILY for 30 Days, MG 09/25/20 Discontinued Reported Medications Dronedarone Hydrochloride (Multaq) 400 Mg Tab, 1 TAB PO BID, #180 TAB 1 Refill 06/29/24 Current Medications Current Medications Medications (Trade) Dose Ordered Sig/Zaheer Route PRN Reason Start Time Stop Time Status Last Admin Nicotine (Nicoderm 21MG/ 24HR) 1 patch DAILY TD 07/06/24 10:00 07/06/24 10:09 Metoprolol Succinate (Toprol Xl) 50 mg DAILY PO 07/06/24 10:00 07/06/24 10:10 Enoxaparin Sodium (Lovenox) 100 mg Q12HR SC 07/05/24 22:00 07/06/24 10:08 Review of Systems A 14-point review of systems is negative unless otherwise noted above Vital Signs Vital Signs Date Time Temp Pulse Resp B/P (MAP) Pulse Ox O2 Delivery O2 Flow Rate FiO2 07/06/24 16:20 98.1 110 17 126/78 (94) 92 98.1 07/06/24 08:00 Room Air* 0 21 Physical Exam Heart: S1 and S2 regular. The patient is in atrial flutter Lungs: Scattered rhonchi. Abdomen: Benign. Extremities: Distal pulses palpable, 2+. No evidence for peripheral edema Labs/Diagnostic Data Labs Test 07/05/24 06:10 07/04/24 19:02 07/04/24 16:19 Range/Units Sodium Level 141 136-145 mmol/L Potassium Level 4.6 3.5-5.1 mmol/L Chloride Level 103 98-107 mmol/L Carbon Dioxide Level 33 H 20-31 mmol/L Anion Gap 5 5-15 Blood Urea Nitrogen 13 9-23 mg/dL Creatinine 0.69 0.550-1.02 mg/dL Glomerular Filtration Rate Calc 99 >90 mL/min BUN/Creatinine Ratio 18.8 10.0-20.0 Serum Glucose 83 74-106 mg/dL Calcium Level 9.5 8.7-10.4 mg/dL Magnesium Level 2.1 1.6-2.6 mg/dL Triglycerides Level 96 < 150 mg/dL Cholesterol Level 156 < 200 mg/dL LDL Cholesterol 95 < 100 mg/dL HDL Cholesterol 47 40-59 mg/dL Thyroid Stimulating Hormone (TSH) 2.81 0.55-4.78 uIU/mL D-Dimer, Quantitative 0.51 H 0.0-0.49 mg/L FEU Troponin I High Sensitivity 3 L </=34 ng/L White Blood Count 8.6 4.4-10.8 10^3/uL Red Blood Count 4.97 4.0-5.20 10^6/uL Hemoglobin 15.6 12.2-16.2 g/dL Hematocrit 46.5 H 36.0-46.0 % Mean Corpuscular Volume 93.6 80.0-100.0 fL Mean Corpuscular Hemoglobin 31.3 28.0-32.0 pg Mean Corpuscular Hemoglobin Concent 33.5 32.0-36.0 g/dL Red Cell Distribution Width 14.0 11.8-14.3 % Platelet Count 194 140-450 10^3/uL Mean Platelet Volume 7.9 6.9-10.8 fL Neutrophils (%) (Auto) 60.5 37.0-80.0 % Lymphocytes (%) (Auto) 27.9 10.0-50.0 % Monocytes (%) (Auto) 9.1 0.0-12.0 % Eosinophils (%) (Auto) 1.6 0.0-7.0 % Basophils (%) (Auto) 0.9 0.0-2.0 % Neutrophils # (Auto) 5.2 1.6-8.6 10 ^3/uL Lymphocytes # (Auto) 2.4 0.4-5.4 10 ^3/uL Monocytes # (Auto) 0.8 0-1.3 10 ^3/uL Eosinophils # (Auto) 0.1 0-0.8 10 ^3/uL Basophils # (Auto) 0.1 0-0.2 10 ^3/uL Nucleated Red Blood Cells 0.1 % Microbiology Date/Time Source Procedure Growth Status 07/05/24 19:23 Nose MRSA Screen - Final Complete Plan/Recommendation ASSESSMENT: This is a 63-year old female known to Dr. Sauceda who initially presented from her primary care physicians office as she was reportedly found to have an elevated pulse rate during routine examination. Upon ED arrival initial 12-lead electrocardiogram was found consistent with a 2:1 atrial flutter with an underlying right bundle branch block subsequently initiated on Amiodarone/Metoprolol and later admitted for further evaluation and management of the underlying arrhythmia. Of note, patient was recently admitted to this facility for similar symptoms and discharged approximately three days prior to initial presentation. She herself does mention she is currently being managed by Electrophysiology services (Dr. Lincoln Gilliam) on an outpatient basis for which she recently underwent cardiac ablation x 1 (06/08/2024) for the underlying paroxysmal atrial fibrillation. At present time of consultation, telemetry rev eals atrial flutter (2:1 conduction) with RVR. Does convey intermittent palpitations and shortness of breath. Denies any active chest pain, dizziness, syncope, or any further cardiac related symptoms. As the patient presented and was found to be in a 2:1 atrial flutter with RVR, Electrophysiology services were involved by Interventional Cardiology service request for EP aspects of care. Past medical history includes paroxysmal atrial fibrillation on chronic anticoagulation, status post multiple direct current cardioversions, status post cardiac ablation (06/08/2024), supraventricular tachycardia, systolic heart failure with improved LVEF, previous history of DVT, hepatitic-C, anxiety, depression, right renal mass, obesity, and current nicotine dependence Echocardiogram: (11/27/2023) revealed LVEF of 40% by visual estimate. arrhythmia decreases overall sensitivity. RV enlarged mild biatrial enlargement. no severe valve abnormalities noted Echocardiogram: (05/19/2024) revealed Normal left ventricular size and systolic function. Ejection fraction is estimated at 60%. Normal right ventricular size and systolic function. Grade II diastolic dysfunction with evidence of elevated left-sided filling pressure. No hemodynamically significant valvular disease. Mild to moderate mitral annular calcification and aortic valve sclerosis. PA systolic pressure is estimated at 30-35 mm Hg. Paroxysmal atrial flutter (2:1 conduction), with RVR Paroxysmal atrial fibrillation, known history of Status post cardiac ablation (06/08/2024) Systolic heart failure, with improved EF Right bundle branch block Chronic anticoagulation Nicotine dependence Obesity ELECTROPHYSIOLOGY SUGGESTIONS FOR MANAGEMENT: Plan for F[facility]NA DCCV this upcoming Tuesday (07/09/2024) Patient to be consented and NPO status at midnight (07/09/2024) Proceed with Amiodarone and beta-debbie therapy at max tolerated dose As CHADSVASc score is elevated, long-term full anticoagulation is advised for CVA prophylaxis Upon discharge, patient to follow up with Dr. Gilliam (EP) to assess potential need for further ablation The above plan was discussed at length with the patient which she is agreeable to the plan of care Proceed with close rate an rhythm surveillance during the interim Sustain Magnesium level greater than 2.0 Sustain Potassium level greater than 4.0 Proceed with close hemodynamic surveillance Proceed with optimized blood pressure control Transfuse to sustain HGB level above 7.0 Follow up renal function and electrolytes Remainder of cardiac management per Interventional Cardiology Management of co-morbidities as per primary team Counseled on importance of tobacco cessation Management in telemetry Will proceed to follow from an EP perspective Further recommendations per clinical progression All available diagnostic labs, EKG's, and images were personally reviewed Patient's status, findings, and plan of care was reviewed and discussed with supervising physician Dr. Dixon, who is in agreement with current plan of care. Plan of care discussed with and agreed upon by patient / primary RN Prognosis: Guarded Thank you for allowing me to participate in the care of this patient. Further recommendations based on patients clinical course and progression, primary atten ding, and other consultants. Will continue to follow with primary attending. If you have any questions or concerns, please do not hesitate to contact me. A total of 75 minutes was spent reviewing the patient record, examining the patient, making a diagnostic and therapeutic plan, discussing this plan with medical personnel, following up on diagnostic studies and following the patient for clinical stability excluding any and all procedures. At least 50% of this time was spent in direct, [id number] contact. Plan discussed with: Patient (Patient and Primary RN ) FANNY SHAW RFP WRITER Jul 06, 2024 19:43
--- NOTE | 2024-07-06 22:37 | DVHPN2 ---
Consult Progress Note Subjective Other Systems: Patient was seen and evaluated in follow up. Patient remains in atrial flutter with rate in 110-120's on security monitor. MRSA is negative. Patient will be continued on rate control. We will up titrate beta-blockers as tolerated. We will also consult EP team of for possible cardiac ablation. Telemetry reviewed. Objective vital signs Vital Sign Date Time Temp Pulse Resp B/P (MAP) Pulse Ox O2 Delivery O2 Flow Rate FiO2 07/06/24 20:00 Room Air* 0 21 07/06/24 16:20 98.1 110 17 126/78 (94) 92 98.1 Total Intake and Output 07/05/24 07/05/24 07/06/24 14:59 22:59 06:59 Intake Total 710 ml 800 ml Balance 710 ml 800 ml medications Current Medications Medications Dose Ordered Sig/Zaheer Route Start Time Stop Time Status Last Admin Dose Admin Amiodarone HCl 400 mg Q12HR PO 07/04/24 19:00 07/06/24 21:47 400 MG Gabapentin 100 mg BID PO 07/04/24 22:00 07/06/24 21:47 100 MG Ondansetron HCl 4 mg Q4HP PRN IV 07/04/24 19:00 Acetaminophen 650 mg Q6HP PRN PO 07/04/24 19:00 Nitroglycerin 0.4 mg Q5MINP PRN SL 07/04/24 19:00 Morphine Sulfate 2 mg Q30M PRN IV 07/04/24 19:00 Acetaminophen/ Hydrocodone Bitart 1 tab Q6HPRN PRN PO 07/04/24 21:15 07/06/24 18:00 1 TAB Lorazepam 1 mg Q8HP PRN PO 07/05/24 12:15 07/06/24 21:47 1 MG Nicotine 1 patch DAILY TD 07/06/24 10:00 07/06/24 10:09 1 PATCH Metoprolol Succinate 50 mg DAILY PO 07/06/24 10:00 07/06/24 10:10 50 MG Enoxaparin Sodium 100 mg Q12HR SC 07/05/24 22:00 07/06/24 21:46 100 MG Examination: GENERAL:Normal, HEENT:Normal, NECK:Normal, LUNGS:Normal, CVS:Normal, ABDOMEN:Normal, NEURO:Normal laboratory and microbiology Laboratory Tests 07/05/24 06:10 07/04/24 16:19 Test 07/05/24 06:10 Range/Units Serum Glucose 83 74-106 mg/dL Problem List/Assessment/Plan Problem List/Assessment/Plan 2:1 Atrial flutter. History of atrial fibrillation (on Eliquis therapy). Chronic HFimEF, NYHA class III. Tobacco use. Obesity. Plan/Recommendation Continued all current supportive medical care. Patient has been seen by Bernie Kessler NP on my behalf, her and I discussed the plan with the patient. Transthoracic echocardiogram from 05/19/2024 reveals EF 60%. Previous echocardiogram from 11/27/2023 reveals EF of 40%. [id number] VASc score: 2 points. Therapeutic Lovenox while inpatient, transition back to Eliquis when appropriate. Beta-debbie for rate control. Continue antiarrhythmic agent, amiodarone. Monitor and replete electrolytes as needed, keep potassium greater than four and magnesium greater than two. Close Cardiac surveillance. Additional plan as per the hospital course. Plan discussed with: Patient Date of Service: Jul 06, 2024 Billing Provider: LUISA NUNEZ MD Cardiology Common Codes: [id number] [facility] CARE(High LUISA NUNEZ MD Jul 06, 2024 22:16
[2024-07-07] VITALS (7 sets, daily range): BP systolic 118–139; BP diastolic 81–96; PULSE 97–126; RESP 17–18; TEMP 97.8–98.4; O2SAT 94–98
--- NOTE | 2024-07-07 10:43 | DVHPN2 ---
Reviewed: Care Plan, H&P, Labs, Medications, Previous Orders, Radiology Changes from previous H/P or p: No Changes Objective Vitals Vital Signs Date Time Temp Pulse Resp B/P (MAP) Pulse Ox O2 Delivery O2 Flow Rate FiO2 07/07/24 09:43 94 139/85 07/07/24 09:00 97.9 18 94 97.9 07/07/24 08:00 Room Air* 0 21 Intake/Output Intake and Output 07/07/24 07:00 Intake Total 1297 ml Balance 1297 ml Intake Oral 1297 ml # Voids 7 # Bowel Movements 1 Medications Current Medications Medications Dose Ordered Sig/Zaheer Route Start Time Stop Time Status Last Admin Dose Admin Amiodarone HCl 400 mg Q12HR PO 07/04/24 19:00 07/07/24 09:42 400 MG Gabapentin 100 mg BID PO 07/04/24 22:00 07/07/24 09:43 100 MG Ondansetron HCl 4 mg Q4HP PRN IV 07/04/24 19:00 Acetaminophen 650 mg Q6HP PRN PO 07/04/24 19:00 Nitroglycerin 0.4 mg Q5MINP PRN SL 07/04/24 19:00 Morphine Sulfate 2 mg Q30M PRN IV 07/04/24 19:00 Acetaminophen/ Hydrocodone Bitart 1 tab Q6HPRN PRN PO 07/04/24 21:15 07/06/24 18:00 1 TAB Lorazepam 1 mg Q8HP PRN PO 07/05/24 12:15 07/06/24 21:47 1 MG Nicotine 1 patch DAILY TD 07/06/24 10:00 07/07/24 09:44 1 PATCH Metoprolol Succinate 50 mg DAILY PO 07/06/24 10:00 07/07/24 09:43 50 MG Enoxaparin Sodium 100 mg Q12HR SC 07/05/24 22:00 07/07/24 09:43 100 MG Laboratory Results Laboratory Tests 07/04/24 16:19 07/05/24 06:10 Microbiology Microbiology Date/Time Source Procedure Growth Status 07/05/24 19:23 Nose MRSA Screen - Final Complete Labs and/or images reviewed: Labs reviewed by me, Image(s) reviewed by me Assessment/Plan Assessment/Plan Palpitations secondary to AFib: Consult for budget director appreciated History of Afib with RVR on eliquis metoprolol amiodarone currently on heparin Atrial flutter s/p ablation 06/01/2024 Chronic Current tobacco use: Counseling nicotine patch Chronic systolic congestive heart failure NYHA class 3, echo 05/19/2024 60 % ejection fraction obesity Hypertension Depression History of DVT alcohol abuse counseling chronic hypoxic respiratory failure secondary polycytemia likely from above Patient was Discharged home three days ago from this hospital on 07/02/[address] Kuhn for possible ablation on Tuesday Plan discussed with: Patient Date of Service: Jul 07, 2024 Billing Provider: BRUCE CALLAWAY MD Common Visit Codes: [id number] INP/OBS CARE(HIGH) BRUCE CALLAWAY MD Jul 07, 2024 10:43
--- NOTE | 2024-07-07 22:32 | DVHPN2 ---
Progress Note - Dictate Date Seen: Jul 07, 2024 Medical Necessity Reason Pt with a Central, PICC or Fol: No Subjective Patient was seen and evaluated in follow up. Patient is complaining of generalized pain. Patient is scheduled for cardiac ablation tomorrow. MRSA is negative. Telemetry reviewed. vital signs Vital Sign Date Time Temp Pulse Resp B/P (MAP) Pulse Ox O2 Delivery O2 Flow Rate FiO2 07/07/24 20:00 Room Air* 0 21 07/07/24 16:50 98.0 122 18 119/84 (96) 94 98.0 Total Intake and Output 07/06/24 07/06/24 07/07/24 15:00 23:00 07:00 Intake Total 897 ml 400 ml Balance 897 ml 400 ml medications Current Medications Medications Dose Ordered Sig/Zaheer Route Start Time Stop Time Status Last Admin Dose Admin Amiodarone HCl 400 mg Q12HR PO 07/04/24 19:00 07/07/24 09:42 400 MG Gabapentin 100 mg BID PO 07/04/24 22:00 07/07/24 09:43 100 MG Ondansetron HCl 4 mg Q4HP PRN IV 07/04/24 19:00 Acetaminophen 650 mg Q6HP PRN PO 07/04/24 19:00 Nitroglycerin 0.4 mg Q5MINP PRN SL 07/04/24 19:00 Morphine Sulfate 2 mg Q30M PRN IV 07/04/24 19:00 Acetaminophen/ Hydrocodone Bitart 1 tab Q6HPRN PRN PO 07/04/24 21:15 07/06/24 18:00 1 TAB Lorazepam 1 mg Q8HP PRN PO 07/05/24 12:15 07/07/24 12:13 1 MG Nicotine 1 patch DAILY TD 07/06/24 10:00 07/07/24 09:44 1 PATCH Metoprolol Succinate 50 mg DAILY PO 07/06/24 10:00 07/07/24 09:43 50 MG Enoxaparin Sodium 100 mg Q12HR SC 07/05/24 22:00 07/07/24 09:43 100 MG objective GENERAL: Awake, alert, oriented. LUNGS: Clear. CARDIOVASCULAR: Heart sounds are good. ABDOMEN: Soft. laboratory and microbiology Laboratory Tests 07/05/24 06:10 07/04/24 16:19 Test 07/05/24 06:10 Range/Units Serum Glucose 83 74-106 mg/dL Problem List 2:1 Atrial flutter. History of atrial fibrillation (on Eliquis therapy). Chronic HFimEF, NYHA class III. Tobacco use. Obesity. Assessment/Plan Continued all current supportive medical care. Morphine and [place] for pain management. Amiodarone. DVT prophylactics. Metoprolol. Additional plan as per the hospital course. Dietary Evaluation Review Recommendations by RD: Dietary education by RD Comments: 1) Continue to promote optimal PO intake 2) Encourage tobacco cessation 3) F/u with cardiology 4) Refer to outpatient RD for weight management Expected Outcomes/Goals: 1) appetite and labs to improve 2) f/u in 5 days Plan discussed with: Patient LUISA NUNEZ MD Jul 07, 2024 20:56
[2024-07-08] VITALS (8 sets, daily range): BP systolic 100–133; BP diastolic 69–84; PULSE 106–124; RESP 16–18; TEMP 97.6–98; O2SAT 91–100
--- NOTE | 2024-07-08 11:52 | DVHPN2 ---
Reviewed: Care Plan, H&P, Labs, Medications, Previous Orders, Radiology Changes from previous H/P or p: No Changes Objective Vitals Vital Signs Date Time Temp Pulse Resp B/P (MAP) Pulse Ox O2 Delivery O2 Flow Rate FiO2 07/08/24 09:34 112 133/84 07/08/24 09:00 97.8 16 94 97.8 07/08/24 08:00 Room Air* 0 21 Intake/Output Intake and Output 07/08/24 07:00 Intake Total 1848 ml Balance 1848 ml Intake Oral 1848 ml # Voids 10 # Bowel Movements 1 Medications Current Medications Medications Dose Ordered Sig/Zaheer Route Start Time Stop Time Status Last Admin Dose Admin Amiodarone HCl 400 mg Q12HR PO 07/04/24 19:00 07/08/24 09:34 400 MG Gabapentin 100 mg BID PO 07/04/24 22:00 07/08/24 09:34 100 MG Ondansetron HCl 4 mg Q4HP PRN IV 07/04/24 19:00 Acetaminophen 650 mg Q6HP PRN PO 07/04/24 19:00 Nitroglycerin 0.4 mg Q5MINP PRN SL 07/04/24 19:00 Morphine Sulfate 2 mg Q30M PRN IV 07/04/24 19:00 Acetaminophen/ Hydrocodone Bitart 1 tab Q6HPRN PRN PO 07/04/24 21:15 07/06/24 18:00 1 TAB Lorazepam 1 mg Q8HP PRN PO 07/05/24 12:15 07/07/24 21:19 1 MG Nicotine 1 patch DAILY TD 07/06/24 10:00 07/08/24 09:36 1 PATCH Metoprolol Succinate 50 mg DAILY PO 07/06/24 10:00 07/08/24 09:34 50 MG Enoxaparin Sodium 100 mg Q12HR SC 07/05/24 22:00 07/08/24 09:34 100 MG Laboratory Results Laboratory Tests 07/04/24 16:19 07/05/24 06:10 Microbiology Microbiology Date/Time Source Procedure Growth Status 07/05/24 19:23 Nose MRSA Screen - Final Complete Labs and/or images reviewed: Labs reviewed by me, Image(s) reviewed by me Assessment/Plan Assessment/Plan Palpitations secondary to AFib: Consult for supervisor contact and service clerks appreciated History of Afib with RVR on eliquis metoprolol amiodarone currently on heparin Atrial flutter s/p ablation 06/01/2024 Chronic Current tobacco use: Counseling nicotine patch Chronic systolic congestive heart failure NYHA class 3, echo 05/19/2024 60 % ejection fraction obesity Hypertension Depression History of DVT alcohol abuse counseling chronic hypoxic respiratory failure secondary polycytemia likely from above Patient was Discharged home three days ago from this hospital on 07/02/[address] Kuhn for cardioversion on Tuesday Plan discussed with: Patient Date of Service: Jul 08, 2024 Billing Provider: BRUCE CALLAWAY MD Common Visit Codes: [id number] INP/OBS CARE(HIGH) BRUCE CALLAWAY MD Jul 08, 2024 11:52
[2024-07-08 18:33] LABS: Urine Bacteria None Seen /hpf (None Seen)
[2024-07-08 18:42] LABS: Urine Blood Negative /uL (Negative); Urine Clarity Clear (Clear); Urine Color Light-Yellow (Yellow); Urine Protein, UAD Negative (Negative); Urine Specific Gravity 1.015 (1.001-1.035); Urine Squamous Epithelial Cell FEW /hpf (<5); Urine Urobilinogen Normal (Negative); Urine WBC 3 /HPF (0-5); Urine pH 6.5 (5.0-9.0)
--- NOTE | 2024-07-08 19:21 | DVHPN2 ---
Progress Note - Dictate Date Seen: Jul 08, 2024 Medical Necessity Reason Pt with a Central, PICC or Fol: No Subjective Patient was seen and evaluated in follow up. Patient is complaining of generalized pain. Patient is scheduled for FAR[facility]NA with cardioversion 07/09/24. Urinalysis is negative for infection. Telemetry reviewed. vital signs Vital Sign Date Time Temp Pulse Resp B/P (MAP) Pulse Ox O2 Delivery O2 Flow Rate FiO2 07/08/24 17:00 98.0 118 18 109/74 (86) 100 98.0 07/08/24 08:00 Room Air* 0 21 Total Intake and Output 07/07/24 07/07/24 07/08/24 15:00 23:00 07:00 Intake Total 1148 ml 700 ml Balance 1148 ml 700 ml medications Current Medications Medications Dose Ordered Sig/Zaheer Route Start Time Stop Time Status Last Admin Dose Admin Amiodarone HCl 400 mg Q12HR PO 07/04/24 19:00 07/08/24 09:34 400 MG Gabapentin 100 mg BID PO 07/04/24 22:00 07/08/24 09:34 100 MG Ondansetron HCl 4 mg Q4HP PRN IV 07/04/24 19:00 Acetaminophen 650 mg Q6HP PRN PO 07/04/24 19:00 Nitroglycerin 0.4 mg Q5MINP PRN SL 07/04/24 19:00 Morphine Sulfate 2 mg Q30M PRN IV 07/04/24 19:00 Acetaminophen/ Hydrocodone Bitart 1 tab Q6HPRN PRN PO 07/04/24 21:15 07/06/24 18:00 1 TAB Lorazepam 1 mg Q8HP PRN PO 07/05/24 12:15 07/08/24 12:00 1 MG Nicotine 1 patch DAILY TD 07/06/24 10:00 07/08/24 09:36 1 PATCH Metoprolol Succinate 50 mg DAILY PO 07/06/24 10:00 07/08/24 09:34 50 MG Enoxaparin Sodium 100 mg Q12HR SC 07/05/24 22:00 07/08/24 09:34 100 MG objective GENERAL: Awake, alert, oriented. LUNGS: Clear. CARDIOVASCULAR: Heart sounds are good. ABDOMEN: Soft. laboratory and microbiology Laboratory Tests 07/05/24 06:10 07/04/24 16:19 Test 07/05/24 06:10 Range/Units Serum Glucose 83 74-106 mg/dL Problem List 2:1 Atrial flutter. History of atrial fibrillation (on Eliquis therapy). Chronic HFimEF, NYHA class III. Tobacco use. Obesity. Assessment/Plan Continued all current supportive medical care. Morphine and [place] for pain management. Amiodarone. DVT prophylactics. Metoprolol. Additional plan as per the hospital course. Dietary Evaluation Review Recommendations by RD: Dietary education by RD Comments: 1) Continue to promote optimal PO intake 2) Encourage tobacco cessation 3) F/u with cardiology 4) Refer to outpatient RD for weight management Expected Outcomes/Goals: 1) appetite and labs to improve 2) f/u in 5 days Plan discussed with: Patient LUISA NUNEZ MD Jul 08, 2024 18:55
[2024-07-09] VITALS (25 sets, daily range): BP systolic 80–137; BP diastolic 48–94; PULSE 54–126; RESP 12–18; TEMP 97.5–98.3; O2SAT 95–98
[2024-07-09 06:20] LABS: Basophils # (auto) 0 10 ^3/uL (0-0.2); Basophils % (auto) 0.6 % (0.0-2.0); Eosinophils # (auto) 0.1 10 ^3/uL (0-0.8); Eosinophils % (auto) 1.8 % (0.0-7.0); Hematocrit 50.5 % (36.0-46.0); Hemoglobin 16.7 g/dL (12.2-16.2); Lymphocytes # (auto) 2.4 10 ^3/uL (0.4-5.4); Lymphocytes % (auto) 30.7 % (10.0-50.0); Mean Corpuscular Hemoglobin 30.9 pg (28.0-32.0); Mean Corpuscular Hgb Conc. 33.1 g/dL (32.0-36.0); Mean Corpuscular Volume 93.5 fL (80.0-100.0); Monocytes # (auto) 0.8 10 ^3/uL (0-1.3); Monocytes % (auto) 9.7 % (0.0-12.0); Neutrophils # (auto) 4.6 10 ^3/uL (1.6-8.6); Neutrophils % (auto) 57.2 % (37.0-80.0); Nucleated Red Blood Cells % 0.2 %; Platelet Count (auto) 213 10^3/uL (140-450); Red Cell Distribution Width 13.8 % (11.8-14.3)
[2024-07-09 06:25] LABS: INR 1.01 (0.9-1.15); Prothrombin Time 10.7 sec (9.3-11.8)
[2024-07-09 06:40] LABS: Alkaline Phosphatase 77 U/L (46-116); Anion Gap 7 (5-15); BUN/Creatinine Ratio 14.1 (10.0-20.0); Bilirubin, Total 0.4 mg/dL (0.2-1.0); Blood Urea Nitrogen 11 mg/dL (9-23); Calcium 9.7 mg/dL (8.7-10.4); Carbon Dioxide 28 mmol/L (20-31); Chloride 103 mmol/L (98-107); Glucose 92 mg/dL (74-106); Sodium 138 mmol/L (136-145); Total Protein 7.3 g/dL (5.7-8.2)
[2024-07-09 06:45] LABS: Alanine Aminotransferase 64 U/L (7-40); Albumin 4.1 g/dL (3.2-4.8); Aspartate Aminotransferase 43 U/L (13-40)
[2024-07-09] MEDS: fentaNYL CITRATE 100 MCG/2 ML VL IV ONE (08:15)
[2024-07-09] MEDS: MIDAZOLAM HCL 2MG/2ML 2ml VIAL (1mg/ml) IV ONE (08:15)
[2024-07-09] MEDS: LIDOCAINE VISCOUS 2% 15ML UD PO ONE (08:15)
--- NOTE | 2024-07-09 09:10 | DVHOP2 ---
Operative Report Trans-Esophageal Echocardiogram/Electrical Cardioversion PROCEDURE REPORT Date of Service: 07/09/2024 Felt Checker: Lul Sanchez MD PROCEDURE PERFORMED: Transesophageal echocardiogram, conscious sedation administration and supervision, more than 15 minutes. Intra cardiac bubble study. PREOPERATIVE DIAGNOSES: Atrial Flutter DESCRIPTION OF PROCEDURE: The patient signed informed consent understanding risks, benefits and alternatives of the procedure, he wished to proceed. Her EKG prior to procedure revealed Atrial flutter with 2:1 block. The patient was given 15 mL of oral viscous lidocaine. She was placed in a left lateral decubitus position and conscious sedation was administered per laboratory technical specialist protocol (1 mg of Versed and 50 mcg of Fentanyl). I administered a bite block into her mouth and a FARZANA probe into the mid esophagus without any difficulties or complications. Multiple planar images were obtained. Bubble study was also performed. At the completion of procedure, FARZANA probe was removed and there were no immediate complications. Vitals signs were stable throughout the procedure. As there was no intracardiac thrombus, we proceeded to perform Electrical Cardioversion. Patient was given extra 1 mg Versed and another 50 mcg of Fentanyl. She was Cardioverted with 200 Joules to sinus rhythm. EKG post procedure revealed sinus bradycardia with rate of 55 BPM. FINDINGS: 1. Left ventricle: Mild concentrated Left ventricular hypertrophy was seen. LVEF was 60%. There was no gross wall motion abnormality seen. 2. Right ventricle: Normal RV size with normal systolic function. 3. Left atrium: LA mildly enlarged 4. Right atrium: RA was mildly enlarged 5. Mitral valve: Mild Mitral regurgitation, Moderate Mitral Annular Calcification was seen, no significant stenosis, normal functioning valve 6. Left atrial appendage: No evidence of thrombus. 7. Aortic valve: Aortic valve was trileaflet. There was no stenosis/Insufficiency. 8. Pulmonic valve: No significant stenosis. 9. Tricuspid valve: Mild tricuspid regurgitation. 10. Interatrial septum: Negative color flow for shunt. Bubble study was performed and was negative (normal). 11. Pericardium: No significant effusion. 12. Thoracic aorta: No significant plaquing. No Intracardiac thrombus. s/p FARZANA with Electrical Cardioversion. Continue long-term anticoagulation. Change the dose of Amiodarone from 400 mg PO BID to 200 mg PO BID LUL SANCHEZ MD Jul 09, 2024 09:10
[2024-07-09] MEDS: AMIODARONE HCL 200 MG TAB PO SCH (10:00)
--- NOTE | 2024-07-09 10:14 | DVHPN2 ---
Progress Note - Dictate Date Seen: Jul 09, 2024 Medical Necessity Reason Pt with a Central, PICC or Fol: No vital signs Vital Sign Date Time Temp Pulse Resp B/P (MAP) Pulse Ox O2 Delivery O2 Flow Rate FiO2 07/09/24 09:00 97.7 72 18 137/84 (101) 96 97.7 07/08/24 20:00 Room Air* 0 21 Total Intake and Output 07/08/24 07/08/24 07/09/24 15:00 23:00 07:00 Intake Total 300 ml 880 ml 450 ml Balance 300 ml 880 ml 450 ml medications Current Medications Medications Dose Ordered Sig/Zaheer Route Start Time Stop Time Status Last Admin Dose Admin Gabapentin 100 mg BID PO 07/04/24 22:00 07/08/24 21:11 100 MG Ondansetron HCl 4 mg Q4HP PRN IV 07/04/24 19:00 Acetaminophen 650 mg Q6HP PRN PO 07/04/24 19:00 Nitroglycerin 0.4 mg Q5MINP PRN SL 07/04/24 19:00 Morphine Sulfate 2 mg Q30M PRN IV 07/04/24 19:00 Acetaminophen/ Hydrocodone Bitart 1 tab Q6HPRN PRN PO 07/04/24 21:15 07/06/24 18:00 1 TAB Lorazepam 1 mg Q8HP PRN PO 07/05/24 12:15 07/08/24 21:11 1 MG Nicotine 1 patch DAILY TD 07/06/24 10:00 07/08/24 09:36 1 PATCH Metoprolol Succinate 50 mg DAILY PO 07/06/24 10:00 07/08/24 09:34 50 MG Enoxaparin Sodium 100 mg Q12HR SC 07/05/24 22:00 07/08/24 21:12 100 MG Amiodarone HCl 200 mg Q12HR PO 07/09/24 10:00 UNV laboratory and microbiology Laboratory Tests 07/09/24 05:18 Test 07/09/24 05:18 Range/Units Serum Glucose 92 74-106 mg/dL Assessment/Plan ASSESSMENT: This is a 63-year old female known to Dr. Sauceda who initially presented from her primary care physicians office as she was reportedly found to have an elevated pulse rate during routine examination. Upon ED arrival initial 12-lead electrocardiogram was found consistent with a 2:1 atrial flutter with an underlying right bundle branch block subsequently initiated on Amiodarone/Metoprolol and later admitted for further evaluation and management of the underlying arrhythmia. Of note, patient was recently admitted to this facility for similar symptoms and discharged approximately three days prior to initial presentation. She herself does mention she is currently being managed by Electrophysiology services (Dr. Lincoln Gilliam) on an outpatient basis for which she recently underwent cardiac ablation x 1 (06/08/2024) for the underlying paroxysmal atrial fibrillation. At present time of consultation, telemetry reveals atrial flutter (2:1 conduction) with RVR. Does convey intermittent palpitations and shortness of breath. Denies any active chest pain, dizziness, syncope, or any further cardiac related symptoms. As the patient presented and was found to be in a 2:1 atrial flutter with RVR, Electrophysiology services were involved by Interventional Cardiology service request for EP aspects of care. Past medical history includes paroxysmal atrial fibrillation on chronic anticoagulation, status post multiple direct current cardioversions, status post cardiac ablation (06/08/2024), supraventricular tachycardia, systolic heart failure with improved LVEF, previous history of DVT, hepatitic-C, anxiety, depression, right renal mass, obesity, and current nicotine dependence Echocardiogram: (11/27/2023) revealed LVEF of 40% by visual estimate. arrhythmia decreases overall sensitivity. RV enlarged mild biatrial enlargement. no severe valve abnormalities noted Echocardiogram: (05/19/2024) revealed Normal left ventricular size and systolic function. Ejection fraction is estimated at 60%. Normal right ventricular size and systolic function. Grade II diastolic dysfunction with evidence of elevated left-sided filling pressure. No hemodynamically significant valvular disease. Mild to moderate mitral annular calcification and aortic valve sclerosis. PA systolic pressure is estimated at 30-35 mm Hg. FARZANA DCCV: (07/09/2024) revealed Left ventricle: Mild concentrated Left ventricular hypertrophy was seen. LVEF was 60%. There was no gross wall motion abnormality seen. Right ventricle: Normal RV size with normal systolic function. Left atrium: LA mildly enlarged. Right atrium: RA was mildly enlarged. Mitral valve: Mild Mitral regurgitation, Moderate Mitral Annular Calcification was seen, no significant stenosis, normal functioning valve. Left atrial appendage: No evidence of thrombus. Aortic valve: Aortic valve was trileaflet. There was no stenosis/Insufficiency. Pulmonic valve: No significant stenosis. Tricuspid valve: Mild tricuspid regurgitation. Interatrial septum: Negative color flow for shunt. Bubble study was performed and was negative (normal). Pericardium: No significant effusion. Thoracic aorta: No significant plaquing. She was Cardioverted with 200 Joules to sinus rhythm. EKG post procedure revealed sinus bradycardia with rate of 55 BPM. Paroxysmal atrial flutter (2:1 conduction), with RVR, status post successful FARZANA DCCV (07/09/2024) Paroxysmal atrial fibrillation, known history of Status post cardiac ablation (06/08/2024) Systolic heart failure, with improved EF Right bundle branch block Chronic anticoagulation Nicotine dependence Obesity ELECTROPHYSIOLOGY SUGGESTIONS FOR MANAGEMENT: Status post FARZANA with successful DCCV (07/09/2024) EKG post procedure revealed sinus bradycardia at 55bpm Titrate current Amiodarone to 200mg po twice daily as for now Proceed with beta-debbie therapy at max tolerated dose as for now As CHADSVASc score is elevated, long-term full anticoagulation is advised for CVA prophylaxis Upon discharge, patient is to follow up with Dr. Gilliam (EP) to assess potential need for further ablation The above plan was discussed at length with the patient which she is agreeable to the plan of care Proceed with close rate an rhythm surveillance during the interim Sustain Magnesium level greater than 2.0 Sustain Potassium level greater than 4.0 EP-mueller, remains stable Proceed with close hemodynamic surveillance Proceed with optimized blood pressure control Transfuse to sustain HGB level above 7.0 Follow up renal function and electrolytes Remainder of cardiac management per Interventional Cardiology Management of co-morbidities as per primary team Counseled on importance of tobacco cessation Management in telemetry Will proceed to follow from an EP perspective Further recommendations per clinical progression All available diagnostic labs, EKG's, and images were personally reviewed Patient's status, findings, and plan of care was reviewed and discussed with supervising physician Dr. Dixon, who is in agreement with current plan of care. Plan of care discussed with and agreed upon by patient / primary RN Prognosis: Guarded Thank you for allowing me to participate in the care of this patient. Further recommendations based on patients clinical course and progression, primary attending, and other consultants. Will continue to follow with primary attending. If you have any questions or concerns, please do not hesitate to contact me. A total of 75 minutes was spent reviewing the patient record, examining the patient, making a diagnostic and therapeutic plan, discussing this plan with medical personnel, following up on diagnostic studies and following the patient for clinical stability excluding any and all procedures. At least 50% of this time was spent in direct, [id number] contact. Dietary Evaluation Review Recommendations by RD: Dietary education by RD Comments: 1) Continue to promote optimal PO intake 2) Encourage tobacco cessation 3) F/u with cardiology 4) Refer to outpatient RD for weight management Expected Outcomes/Goals: 1) appetite and labs to improve 2) f/u in 5 days Plan discussed with: Patient (Patient and Primary RN ) FANNY SHAW Jul 09, 2024 10:14
--- NOTE | 2024-07-09 12:35 | DVHPN2 ---
Progress Note - Dictate Date Seen: Jul 09, 2024 Medical Necessity Reason Pt with a Central, PICC or Fol: No Subjective Patient was seen and evaluated in follow up. No overnight events. Patient is s/p FARZANA with Electrical Cardioversion. Patient to be continued on penitentiary anticoagulation. Amiodarone dose changed to 200 mg PO BID. H&H stable. PT and INR are WNL. AST and ALT minimally elevated. Telemetry reviewed. vital signs Vital Sign Date Time Temp Pulse Resp B/P (MAP) Pulse Ox O2 Delivery O2 Flow Rate FiO2 07/09/24 09:00 97.7 72 18 137/84 (101) 96 97.7 07/09/24 08:00 Room Air* 0 21 Total Intake and Output 07/08/24 07/08/24 07/09/24 15:00 23:00 07:00 Intake Total 300 ml 880 ml 450 ml Balance 300 ml 880 ml 450 ml medications Current Medications Medications Dose Ordered Sig/Zaheer Route Start Time Stop Time Status Last Admin Dose Admin Gabapentin 100 mg BID PO 07/04/24 22:00 07/08/24 21:11 100 MG Ondansetron HCl 4 mg Q4HP PRN IV 07/04/24 19:00 Acetaminophen 650 mg Q6HP PRN PO 07/04/24 19:00 Nitroglycerin 0.4 mg Q5MINP PRN SL 07/04/24 19:00 Morphine Sulfate 2 mg Q30M PRN IV 07/04/24 19:00 Acetaminophen/ Hydrocodone Bitart 1 tab Q6HPRN PRN PO 07/04/24 21:15 07/06/24 18:00 1 TAB Lorazepam 1 mg Q8HP PRN PO 07/05/24 12:15 07/08/24 21:11 1 MG Nicotine 1 patch DAILY TD 07/06/24 10:00 07/08/24 09:36 1 PATCH Metoprolol Succinate 50 mg DAILY PO 07/06/24 10:00 07/08/24 09:34 50 MG Enoxaparin Sodium 100 mg Q12HR SC 07/05/24 22:00 07/08/24 21:12 100 MG Amiodarone HCl 200 mg Q12HR PO 07/09/24 10:00 objective GENERAL: Awake, alert, oriented. LUNGS: Clear. CARDIOVASCULAR: Heart sounds are good. ABDOMEN: Soft. laboratory and microbiology Laboratory Tests 07/09/24 05:18 Test 07/09/24 05:18 Range/Units Serum Glucose 92 74-106 mg/dL Problem List 2:1 Atrial flutter. History of atrial fibrillation (on Eliquis therapy). Chronic HFimEF, NYHA class III. Tobacco use. Obesity. Assessment/Plan Continued all current supportive medical care. Morphine and [place] for pain management. Amiodarone. DVT prophylactics. Metoprolol. Additional plan as per the hospital course. Dietary Evaluation Review Recommendations by RD: Dietary education by RD Comments: 1) Continue to promote optimal PO intake 2) Encourage tobacco cessation 3) F/u with cardiology 4) Refer to outpatient RD for weight management Expected Outcomes/Goals: 1) appetite and labs to improve 2) f/u in 5 days Plan discussed with: Patient LUISA NUNEZ MD Jul 09, 2024 12:35
--- NOTE | 2024-07-09 13:05 | DVHPN2 ---
Reviewed: Care Plan, H&P, Labs, Medications, Previous Orders, Radiology Changes from previous H/P or p: No Changes Objective Vitals Vital Signs Date Time Temp Pulse Resp B/P (MAP) Pulse Ox O2 Delivery O2 Flow Rate FiO2 07/09/24 09:00 97.7 72 18 137/84 (101) 96 97.7 07/09/24 08:00 Room Air* 0 21 Intake/Output Intake and Output 07/09/24 07:00 Intake Total 1630 ml Balance 1630 ml Intake Oral 1630 ml # Voids 9 # Bowel Movements 1 Medications Current Medications Medications Dose Ordered Sig/Zaheer Route Start Time Stop Time Status Last Admin Dose Admin Gabapentin 100 mg BID PO 07/04/24 22:00 07/08/24 21:11 100 MG Ondansetron HCl 4 mg Q4HP PRN IV 07/04/24 19:00 Acetaminophen 650 mg Q6HP PRN PO 07/04/24 19:00 Nitroglycerin 0.4 mg Q5MINP PRN SL 07/04/24 19:00 Morphine Sulfate 2 mg Q30M PRN IV 07/04/24 19:00 Acetaminophen/ Hydrocodone Bitart 1 tab Q6HPRN PRN PO 07/04/24 21:15 07/06/24 18:00 1 TAB Lorazepam 1 mg Q8HP PRN PO 07/05/24 12:15 07/08/24 21:11 1 MG Nicotine 1 patch DAILY TD 07/06/24 10:00 07/08/24 09:36 1 PATCH Metoprolol Succinate 50 mg DAILY PO 07/06/24 10:00 07/08/24 09:34 50 MG Enoxaparin Sodium 100 mg Q12HR SC 07/05/24 22:00 07/08/24 21:12 100 MG Amiodarone HCl 200 mg Q12HR PO 07/09/24 10:00 Laboratory Results Laboratory Tests 07/09/24 05:18 Chemistry Test 07/09/24 05:18 Albumin 4.1 g/dL (3.2-4.8) Calcium Level 9.7 mg/dL (8.7-10.4) Total Protein 7.3 g/dL (5.7-8.2) Coagulation Test 07/09/24 05:18 Prothrombin Time 10.7 sec (9.3-11.8) Prothrombin Time INR 1.01 (0.9-1.15) LFT Test 07/09/24 05:18 Alanine Aminotransferase (ALT) 64 U/L (7-40) H Alkaline Phosphatase 77 U/L (46-116) Aspartate Amino Transferase (AST) 43 U/L (13-40) H Total Bilirubin 0.4 mg/dL (0.2-1.0) Urinalysis Test 07/08/24 18:33 Urine Color Light-yellow (Yellow) Urine Clarity Clear (Clear) Urine pH 6.5 (5.0-9.0) Urine Specific [place] 1.015 (1.001-1.035) Urine Protein Negative (Negative) Urine Ketones Negative (Negative) Urine Blood Negative /uL (Negative) Urine Nitrite Negative (Negative) Urine Bilirubin Negative (Negative) Urine Urobilinogen Normal mg/dL (Negative) Urine Leukocyte Esterase Negative /uL (Negative) Urine RBC <1 /hpf (0 - 4) Urine Microscopic WBC 3 /HPF (0-5) Urine Squamous Epithelial Cells Few /hpf (<5) Urine Bacteria None seen /hpf (None Seen) Urine Glucose Normal mg/dL (Normal) Microbiology Microbiology Date/Time Source Procedure Growth Status 07/05/24 19:23 Nose MRSA Screen - Final Complete Labs and/or images reviewed: Labs reviewed by me, Image(s) reviewed by me Assessment/Plan Assessment/Plan Palpitations secondary to AFib: Consult for mend worker appreciated History of Afib with RVR on eliquis metoprolol amiodarone currently on heparin Atrial flutter s/p ablation 06/01/2024 Chronic Current tobacco use: Counseling nicotine patch Chronic systolic congestive heart failure NYHA class 3, echo 05/19/2024 60 % ejection fraction obesity Hypertension Depression History of DVT alcohol abuse counseling chronic hypoxic respiratory failure secondary polycytemia likely from above Patient was Discharged home three days ago from this hospital on 07/02/2024 Status post FARZANA and cardioversion by Dr. Schmidt on 07/09/2024 Plan discussed with: Patient Date of Service: Jul 09, 2024 Billing Provider: BRUCE CALLAWAY MD Common Visit Codes: [id number] INP/OBS CARE(HIGH) BRUCE CALLAWAY MD Jul 09, 2024 13:05
--- NOTE | 2024-07-09 14:40 | ECG ---
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
--- NOTE | 2024-07-09 14:40 | ECG ---
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
[2024-07-10 05:00] VITALS: BP 106/63; PULSE 65; RESP 18; TEMP 97.8; O2SAT 91
[2024-07-10 08:00] VITALS: PULSE 63; PULSE 70; RESP 18; O2SAT 98
[2024-07-10 09:00] VITALS: BP 101/68; PULSE 63; RESP 19; TEMP 98.1; O2SAT 93
--- NOTE | 2024-07-10 12:47 | DVHPN2 ---
Reviewed: Care Plan, H&P, Labs, Medications, Previous Orders, Radiology Changes from previous H/P or p: No Changes Objective Vitals Vital Signs Date Time Temp Pulse Resp B/P (MAP) Pulse Ox O2 Delivery O2 Flow Rate FiO2 07/10/24 09:00 98.1 63 19 101/68 (79) 93 98.1 07/10/24 08:00 Room Air* 0 21 Intake/Output Intake and Output 07/10/24 07:00 Intake Total 1184 ml Balance 1184 ml Intake Oral 1184 ml # Voids 10 # Bowel Movements 4 Medications Current Medications Medications Dose Ordered Sig/Zaheer Route Start Time Stop Time Status Last Admin Dose Admin Gabapentin 100 mg BID PO 07/04/24 22:00 07/10/24 08:22 100 MG Ondansetron HCl 4 mg Q4HP PRN IV 07/04/24 19:00 Acetaminophen 650 mg Q6HP PRN PO 07/04/24 19:00 Nitroglycerin 0.4 mg Q5MINP PRN SL 07/04/24 19:00 Morphine Sulfate 2 mg Q30M PRN IV 07/04/24 19:00 Acetaminophen/ Hydrocodone Bitart 1 tab Q6HPRN PRN PO 07/04/24 21:15 07/06/24 18:00 1 TAB Lorazepam 1 mg Q8HP PRN PO 07/05/24 12:15 07/10/24 10:11 1 MG Nicotine 1 patch DAILY TD 07/06/24 10:00 07/10/24 08:21 1 PATCH Metoprolol Succinate 50 mg DAILY PO 07/06/24 10:00 07/10/24 08:22 50 MG Enoxaparin Sodium 100 mg Q12HR SC 07/05/24 22:00 07/10/24 08:21 100 MG Amiodarone HCl 200 mg Q12HR PO 07/09/24 10:00 07/10/24 08:22 200 MG Laboratory Results Laboratory Tests 07/09/24 05:18 Urinalysis Test 07/08/24 18:33 Urine Color Light-yellow (Yellow) Urine Clarity Clear (Clear) Urine pH 6.5 (5.0-9.0) Urine Specific [place] 1.015 (1.001-1.035) Urine Protein Negative (Negative) Urine Ketones Negative (Negative) Urine Blood Negative /uL (Negative) Urine Nitrite Negative (Negative) Urine Bilirubin Negative (Negative) Urine Urobilinogen Normal mg/dL (Negative) Urine Leukocyte Esterase Negative /uL (Negative) Urine RBC <1 /hpf (0 - 4) Urine Microscopic WBC 3 /HPF (0-5) Urine Squamous Epithelial Cells Few /hpf (<5) Urine Bacteria None seen /hpf (None Seen) Urine Glucose Normal mg/dL (Normal) Microbiology Microbiology Date/Time Source Procedure Growth Status 07/05/24 19:23 Nose MRSA Screen - Final Complete Labs and/or images reviewed: Labs reviewed by me, Image(s) reviewed by me Assessment/Plan Assessment/Plan Palpitations secondary to AFib: Consult for maintenance engineer appreciated History of Afib with RVR on eliquis metoprolol amiodarone currently on heparin Atrial flutter s/p ablation 06/01/2024 Chronic Current tobacco use: Counseling nicotine patch Chronic systolic congestive heart failure NYHA class 3, echo 05/19/2024 60 % ejection fraction obesity Hypertension Depression History of DVT alcohol abuse counseling chronic hypoxic respiratory failure secondary polycytemia likely from above Patient was Discharged home three days ago from this hospital on 07/02/2024 Status post FARZANA and cardioversion by Dr. Schmidt on 07/09/2024 Patient asymptomatic without any chest pain or palpitations Dr. Schmidt cleared for discharge Plan discussed with: Patient Date of Service: Jul 10, 2024 Billing Provider: BRUCE CALLAWAY MD Common Visit Codes: [id number] INP/OBS CARE(HIGH) BRUCE CALLAWAY MD Jul 10, 2024 12:46
[2024-07-10] MEDS ORDERED: LORA-1121 PO (12:50)
--- NOTE | 2024-07-10 12:54 | DVHDS2 ---
Discharge Summary Date of Admission Jul 04, 2024 at 18:52 Date of Discharge: Jul 10, 2024 Admitting Diagnosis Palpitations Wounds: Cardioversion Labs/Diagnostic Data: Laboratory Results Test 07/09/24 05:18 07/08/24 18:33 07/05/24 06:10 07/04/24 19:02 White Blood Count 8.0 10^3/uL (4.4-10.8) Red Blood Count 5.40 10^6/uL (4.0-5.20) Hemoglobin 16.7 g/dL (12.2-16.2) Hematocrit 50.5 % (36.0-46.0) Mean Corpuscular Volume 93.5 fL (80.0-100.0) Mean Corpuscular Hemoglobin 30.9 pg (28.0-32.0) Mean Corpuscular Hemoglobin Concent 33.1 g/dL (32.0-36.0) Red Cell Distribution Width 13.8 % (11.8-14.3) Platelet Count 213 10^3/uL (140-450) Mean Platelet Volume 8.0 fL (6.9-10.8) Neutrophils (%) (Auto) 57.2 % (37.0-80.0) Lymphocytes (%) (Auto) 30.7 % (10.0-50.0) Monocytes (%) (Auto) 9.7 % (0.0-12.0) Eosinophils (%) (Auto) 1.8 % (0.0-7.0) Basophils (%) (Auto) 0.6 % (0.0-2.0) Neutrophils # (Auto) 4.6 10 ^3/uL (1.6-8.6) Lymphocytes # (Auto) 2.4 10 ^3/uL (0.4-5.4) Monocytes # (Auto) 0.8 10 ^3/uL (0-1.3) Eosinophils # (Auto) 0.1 10 ^3/uL (0-0.8) Basophils # (Auto) 0 10 ^3/uL (0-0.2) Nucleated Red Blood Cells 0.2 % Prothrombin Time 10.7 sec (9.3-11.8) Prothrombin Time INR 1.01 (0.9-1.15) Sodium Level 138 mmol/L (136-145) Potassium Level 5.0 mmol/L (3.5-5.1) Chloride Level 103 mmol/L (98-107) Carbon Dioxide Level 28 mmol/L (20-31) Anion Gap 7 (5-15) Blood Urea Nitrogen 11 mg/dL (9-23) Creatinine 0.78 mg/dL (0.550-1.02) Glomerular Filtration Rate Calc 86 mL/min (>90) BUN/Creatinine Ratio 14.1 (10.0-20.0) Serum Glucose 92 mg/dL (74-106) Calcium Level 9.7 mg/dL (8.7-10.4) Total Bilirubin 0.4 mg/dL (0.2-1.0) Aspartate Amino Transferase (AST) 43 U/L (13-40) Alanine Aminotransferase (ALT) 64 U/L (7-40) Alkaline Phosphatase 77 U/L (46-116) Total Protein 7.3 g/dL (5.7-8.2) Albumin 4.1 g/dL (3.2-4.8) Urine Color Light-yellow (Yellow) Urine Clarity Clear (Clear) Urine pH 6.5 (5.0-9.0) Urine Specific [place] 1.015 (1.001-1.035) Urine Protein Negative (Negative) Urine Ketones Negative (Negative) Urine Blood Negative /uL (Negative) Urine Nitrite Negative (Negative) Urine Bilirubin Negative (Negative) Urine Urobilinogen Normal mg/dL (Negative) Urine Leukocyte Esterase Negative /uL (Negative) Urine RBC <1 /hpf (0 - 4) Urine Microscopic WBC 3 /HPF (0-5) Urine Squamous Epithelial Cells Few /hpf (<5) Urine Bacteria None seen /hpf (None Seen) Urine Glucose Normal mg/dL (Normal) Magnesium Level 2.1 mg/dL (1.6-2.6) Triglycerides Level 96 mg/dL (< 150) Cholesterol Level 156 mg/dL (< 200) LDL Cholesterol 95 mg/dL (< 100) HDL Cholesterol 47 mg/dL (40-59) Thyroid Stimulating Hormone (TSH) 2.81 uIU/mL (0.55-4.78) D-Dimer, Quantitative 0.51 mg/L FEU (0.0-0.49) Troponin I High Sensitivity 3 ng/L (</=34) Other Laboratory Tests 07/09/24 05:18 Brief Hx & Hospital Course: Female with a history of atrial flutter chronic tobacco use systolic congestive heart failure hypertension depression DVT alcohol abuse chronic hypoxic respiratory failure chronic polycythemia recently discharged from this hospital on 07/02/2024 readmitted for palpitations found to be in AFib started on metoprolol amiodarone treated with the heparin drip underwent cardioversion by Dr. Schmidt echo 60 percent ejection fraction patient is asymptomatic after the procedure with a stable vital signs no chest pain no palpitations Dr. Schmidt cleared for discharge. Patient has all the medications at home she will continue medications prescription for Ativan for anxiety transmitted to the pharmacy general condition satisfactory at the time of discharge Consults/Reason for consult Dr. 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 Schmidt on 07/09/2024 Discharge Disposition: Home Discharge Instruct/Medications Diet: Cardiac 2g Na,low cholest Activity: Light activity Follow Up/Referral: Follow up with the primary Dr House all previous home medications Follow up with your buildings and grounds superintendent Dr Schmidt Medications: Ativan Transmitted to pharmacy Discharge Statement: "Patient was advised to return to the ER or call 911 if any headaches, dizziness, shortness of breath, chest pain, abdominal pain, bleeding, fevers, or worsening of medical condition. Patient was counseled about treatment plan, medications, possible side effects, patientverbalized understanding. All questions were answered to the best of my ability. 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 Schmidt on 07/09/2024 Date of Service: Jul 10, 2024 Billing Provider: BRUCE CALLAWAY MD Common Visit Codes: 43617-CGW/OBS DISCH DAY >30min BRUCE CALLAWAY MD Jul 10, 2024 12:54
[2024-07-10 12:56] VITALS: BP 114/70; PULSE 64; RESP 12; TEMP 98; O2SAT 93
[2024-07-10 13:00] VITALS: BP 114/70; PULSE 64; RESP 19; TEMP 98; O2SAT 93
--- NOTE | 2024-07-10 22:26 | DVHPN2 ---
Progress Note - Dictate Date Seen: Jul 10, 2024 Medical Necessity Reason Pt with a Central, PICC or Fol: No Subjective Patient was seen and evaluated in follow up. Patient has no new complaints at this time. Patient denies any cardiac symptoms. Patient is cardiac stable for discharge. Telemetry reviewed. vital signs Vital Sign Date Time Temp Pulse Resp B/P (MAP) Pulse Ox O2 Delivery O2 Flow Rate FiO2 07/10/24 13:00 98.0 64 19 114/70 (85) 93 98.0 07/10/24 08:00 Room Air* 0 21 Total Intake and Output 07/09/24 07/09/24 07/10/24 15:00 23:00 07:00 Intake Total 759 ml 425 ml Balance 759 ml 425 ml objective GENERAL: Awake, alert, oriented. LUNGS: Clear. CARDIOVASCULAR: Heart sounds are good. ABDOMEN: Soft. laboratory and microbiology Laboratory Tests 07/09/24 05:18 Test 07/09/24 05:18 Range/Units Serum Glucose 92 74-106 mg/dL Problem List 2:1 Atrial flutter. History of atrial fibrillation (on Eliquis therapy). Chronic HFimEF, NYHA class III. Tobacco use. Obesity. Assessment/Plan Continued all current supportive medical care. Morphine and [place] for pain management. Amiodarone. DVT prophylactics. Metoprolol. Additional plan as per the hospital course. Dietary Evaluation Review Recommendations by RD: Dietary education by RD Comments: 1) Continue to promote optimal PO intake 2) Encourage tobacco cessation 3) F/u with cardiology 4) Refer to outpatient RD for weight management Expected Outcomes/Goals: 1) appetite and labs to improve 2) f/u in 5 days Plan discussed with: Patient LUISA NUNEZ MD Jul 10, 2024 22:26
== END 2024-07-10 15:35 | disposition home or self-care (01) | DRG 309 ==
LOC: EDBD 15:42 → ER 15:42 → OVERFLOW 18:52 → TELE-WESTW 18:59
PROVIDERS: ADMIT Family Medicine; ATTEND Family Medicine
PROC: 5A2204Z Restoration of Cardiac Rhythm, Single (ICD-10-PCS; principal; 2024-07-09)
PROC: B24BZZ4 Ultrasonography of Heart with Aorta, Transesophageal (ICD-10-PCS; 2024-07-09)
DX: I48.0 Paroxysmal atrial fibrillation (principal); D68.9 Coagulation defect, unspecified; I50.22 Chronic systolic (congestive) heart failure; J96.11 Chronic respiratory failure with hypoxia; I48.92 Unspecified atrial flutter; F32.A Depression, unspecified; I11.0 Hypertensive heart disease with heart failure; I25.9 Chronic ischemic heart disease, unspecified; E66.9 Obesity, unspecified; F17.210 Nicotine dependence, cigarettes, uncomplicated; F10.10 Alcohol abuse, uncomplicated; F41.9 Anxiety disorder, unspecified; I45.10 Unspecified right bundle-branch block; D75.1 Secondary polycythemia; Z86.718 Personal history of other venous thrombosis and embolism; Z83.3 Family history of diabetes mellitus; Z82.49 Family history of ischemic heart disease and other diseases of the circulatory system; Z79.01 Long term (current) use of anticoagulants; Z79.899 Other long term (current) drug therapy; Z68.37 Body mass index [BMI] 37.0-37.9, adult
CPT/HCPCS: 36415; 71045; 80048; 80053; 80061; 81001; 83735; 84443; 84484; 85025; 85379; 85610; 86850; 86900; 86901; 87081; 92960; 93005; 93312; 96374; 96375; 99152; 99291; G0378; J2250